=== PATIENT | female | born 1970 ===

== ENCOUNTER 2019-12-06 08:29 | Outpatient (REF) | payer OTHER, SELFPAY ==
--- NOTE | 2019-12-06 08:32 | MM_ITS ---
EXAMINATION: MM SCREENING DIGITAL BREAST TOMOSYNTHESIS, BILATERAL CLINICAL INFORMATION: Screening. Asymptomatic. The lifetime risk of breast cancer based on the Tyrer-Cuzick Model is 14%. COMPARISON: Mammography: 08/11/2018, 07/21/2017, 03/12/2016, 03/08/2015 TECHNIQUE: Digital breast tomosynthesis is performed in both the craniocaudal and mediolateral oblique views along with computer-aided detection (CAD). Synthesized 2D images are generated from the tomosynthesis. FINDINGS: There are scattered areas of fibroglandular density (ACR BI-RADS breast composition Category b). The left breast is unremarkable. There is no interval mass or architectural abnormality or developing density. Neither breast shows abnormal calcifications. The axilla and skin contours are unremarkable. The right CC view has subtle asymmetric density mid outer quadrant on CC view mammography, likely incompletely compressed glandular tissue or summation artifact. There is no correlate on MLO projection. Patient will be recalled for additional imaging. MM/MM tomosynthesis screening BI IMPRESSION: 1. Right: Subtle asymmetric density mid outer quadrant on CC tomography, likely incompletely compressed glandular tissue or summation artifact. 2. Left: No mammographic evidence of malignancy. ASSESSMENT: BI-RADS 0: Incomplete - Need Additional Imaging Evaluation RECOMMENDATION: 1. Additional views of the right breast (3-D spot CC, 3-D CC x2). 2. Targeted ultrasound if warranted after review of the additional views. 3. Radiology department staff will contact the patient for additional imaging. This patient's information was entered into a reminder system with a target due date for their next mammogram.
== END 2019-12-06 08:30 | disposition home or self-care (01) ==
LOC: HO.MAMMO 08:29
PROVIDERS: PCP Internal Medicine; Visit Provider Internal Medicine
DX: Z12.31 Encounter for screening mammogram for malignant neoplasm of breast (principal)
CPT/HCPCS: 77063; 77067

== ENCOUNTER 2019-12-16 14:10 | Outpatient (REF) | payer OTHER, SELFPAY ==
--- NOTE | 2019-12-16 | MM_ITS ---
EXAMINATION: MM DIAGNOSTIC DIGITAL BREAST TOMOSYNTHESIS, RIGHT US BREAST TARGETED, RIGHT CLINICAL INFORMATION: Right breast density laterally. COMPARISON: Mammography: 12/06/2019 and studies dating back to 04/12/2012. TECHNIQUE: Digital breast tomosynthesis is performed in spot compression craniocaudal as well as rolled medial and lateral craniocaudal views. Synthesized 2D images are generated from the tomosynthesis. Targeted right breast ultrasound. FINDINGS: There are scattered areas of fibroglandular density (ACR BI-RADS breast composition Category b). No persistent right breast mass is identified. Targeted right breast ultrasound in the outer quadrant did not demonstrate any abnormal cystic or solid mass. No region of abnormal distal sound shadowing appreciated. MM/MM tomosynthesis screening BI IMPRESSION: No persistent right breast abnormality seen. ASSESSMENT: BI-RADS 1: Negative RECOMMENDATION: Routine annual mammography screening. This patient's information was entered into a reminder system with a target due date for their next mammogram.
== END 2019-12-16 14:11 | disposition home or self-care (01) ==
LOC: HO.MAMMO 14:10
PROVIDERS: PCP Internal Medicine; Visit Provider Internal Medicine
DX: R92.2 Inconclusive mammogram (principal)
CPT/HCPCS: 76642; 77063; 77067

== ENCOUNTER → 2019-12-27 13:42 | Outpatient (BNVA) | payer OTHER, SELFPAY | PROVIDERS: Visit Provider Advanced Practice Midwife | DX: Z76.89 Persons encountering health services in other specified circumstances (principal) ==

== ENCOUNTER 2020-01-03 08:46 | Outpatient (REF) | payer OTHER, SELFPAY ==
[2020-01-03 10:04] LABS: MANUAL DIFF FLAG NO
[2020-01-03 10:06] LABS: Basophils Absolute Auto 0.1 X10*3/uL (0.0-0.2); Basophils Percent Auto 0.9 % (0-2); Eosinophils Absolute Auto 0.4 X10*3/uL (0.0-0.4); Eosinophils Percent Auto 6.8 % (0-4); Hemoglobin 14.2 g/dl (12.0-16.0); Imm Gran Abs Auto 0.01 X10*3/uL (0.00-0.03); Imm Gran Pct Auto 0.2 % (0.0-0.4); Lymphocytes Absolute Auto 2.3 X10*3/uL (1.2-4.9); Lymphocytes Percent Auto 40.1 % (20-40); Mean Corpuscular HGB Conc 32.3 g/dl (31.0-35.0); Mean Corpuscular Hemoglobin 29.8 pg (27.0-33.0); Mean Corpuscular Volume 92.2 fL (80-98); Mean Platelet Volume 12.7 fL (9.4-12.3); Monocytes Absolute Auto 0.4 X10*3/uL (0.1-1.2); Monocytes Percent Auto 6.3 % (2-11); Neutrophils Absolute Auto 2.6 X10*3/uL (2.0-8.3); Neutrophils Percent Auto 45.7 % (45-73); Platelet Count 244 X10*3/uL (160-400); Red Blood Count 4.77 X10*6/uL (4.20-5.50); Red Cell Distribution Width 13.2 % (11.0-16.0); White Blood Count 5.7 X10*3/uL (4.8-10.8)
[2020-01-03 10:26] LABS: Alanine Aminotransferase 19 U/L (0-31); Albumin Level 4.3 g/dL (3.5-5.0); Alkaline Phosphatase 50 U/L (39-117); Anion Gap 13 (12-20); Aspartate Amino Transferase 16 U/L (5-31); Bilirubin Total 0.5 mg/dL (0.0-1.0); Blood Urea Nitrogen 16 mg/dL (9-16); Calcium 9.3 mg/dL (8.4-10.2); Carbon Dioxide 27 mmol/L (22-29); Chloride 102 mmol/L (96-108); Cholesterol 228 mg/dL; Estimated Glomerular Filt Rate 59; Glucose Fasting 125 mg/dL (60-99); HDL Cholesterol 41 mg/dL; LDL Cholesterol Calculated 152 mg/dl; Potassium 4.5 mmol/l (3.3-5.1); Sodium 137 mmol/L (135-145); Total Protein 7.8 g/dL (6.5-8.0); Triglycerides 178 mg/dL
[2020-01-03 10:48] LABS: TSH reflex Free T4 0.67 mIU/mL (0.32-4.0); Vitamin D 25-OH Total 17.1 ng/mL (>30)
[2020-01-03 10:53] LABS: Vitamin B12 357 pg/mL (200-900)
[2020-01-04 19:27] LABS: Follicle Stimulating Hormone 96.8 mIU/mL
== END 2020-01-03 08:47 | disposition home or self-care (01) ==
LOC: HO.LAB 08:46
PROVIDERS: Absent Provider Advanced Practice Midwife; PCP Internal Medicine; Visit Provider Internal Medicine
DX: E78.2 Mixed hyperlipidemia (principal); R73.02 Impaired glucose tolerance (oral); R53.82 Chronic fatigue, unspecified
CPT/HCPCS: 36415; 80053; 80061; 82306; 82607; 82746; 83001; 84443; 85025

== ENCOUNTER 2020-01-09 14:04 | Outpatient (REF) | payer OTHER, SELFPAY ==
--- NOTE | 2020-01-09 14:08 | US_ITS ---
EXAMINATION: US PELVIS ULTRASOUND CLINICAL INFORMATION: N91.2 - Amenorrhea, unspecified. Prior history fibroids. Prior history myomectomy uterus. Age 49. COMPARISON: Ultrasound pelvis 10/22/2017, 11/03/2016. TECHNIQUE: Ultrasound of the pelvis is performed using both transabdominal and transvaginal transducers along with Doppler. Transvaginal imaging is performed due to inadequate visualization transabdominally. FINDINGS: Uterus: The uterus is anteverted and measures 10.4 x 4.2 x 4.7 cm. There are patient study limitations. The transvaginal images of the uterine fundus and body are limited, perhaps related to bowel gas. The endometrial lining is not measured at time of imaging. There is sagittal long axis imaged with transabdominal imaging suggesting double wall endometrial thickness partially visible of 12 mm. There is questionable posterior intramural fundal body fibroid on transverse transabdominal imaging measuring 1.3 cm, not noted at time of real-time imaging or visible on sagittal transabdominal images. With transvaginal imaging, there is a lower right anterior uterine body fibroid measuring 1.9 x 1.5 x 1.9 cm, prior measurement 2.2 x 1.8 x 2.1 cm. There is nabothian cyst in the cervix under 1 cm. Adnexa: Both ovaries are visualized. There is normal color flow to the adnexa. There is no ovarian torsion. There is no pelvic ascites or fluid collection. Right ovary measures 2.1 x 1.6 x 2.0 cm. Volume 3.5 mL. Left ovary measures 2.3 x 1.6 x 1.9 cm. Volume 3.7 mL. US/US pelvic complete IMPRESSION: 1. Uterus: Patient study limitations. Endometrial lining not well visualized, likely 1.2 cm on transabdominal image. Lower uterine segment fibroid stable to borderline decreased since 2018, 1.9 cm (prior measurement 2.2 cm). Question posterior intramural uterine fundal fibroid 1.3 cm. 2. Adnexa: Ovaries normal in size. No adnexal mass or pelvic ascites.
== END 2020-01-09 14:05 | disposition home or self-care (01) ==
LOC: HO.US 14:04
PROVIDERS: Visit Provider Advanced Practice Midwife
DX: N91.2 Amenorrhea, unspecified (principal); N95.1 Menopausal and female climacteric states
CPT/HCPCS: 76830; 76856

== ENCOUNTER → 2020-02-13 10:16 | Outpatient (BNVA) | payer OTHER, SELFPAY | PROVIDERS: PCP Internal Medicine; Referring Provider Internal Medicine; Visit Provider Obstetrics & Gynecology | DX: N91.2 Amenorrhea, unspecified (principal) | CPT/HCPCS: 99212 ==

== ENCOUNTER 2020-04-16 09:02 | Outpatient (REF) | payer OTHER, SELFPAY ==
[2020-04-16 10:07] LABS: Alanine Aminotransferase 30 U/L (0-31); Albumin Level 4.3 g/dL (3.5-5.0); Alkaline Phosphatase 48 U/L (39-117); Anion Gap 13 (12-20); Aspartate Amino Transferase 22 U/L (5-31); Bilirubin Total 0.4 mg/dL (0.0-1.0); Blood Urea Nitrogen 15 mg/dL (9-16); Calcium 9.1 mg/dL (8.4-10.2); Carbon Dioxide 26 mmol/L (22-29); Chloride 105 mmol/L (96-108); Cholesterol 234 mg/dL; Estimated Glomerular Filt Rate 58; Glucose Fasting 152 mg/dL (60-99); HDL Cholesterol 42 mg/dL; LDL Cholesterol Calculated 159 mg/dl; Potassium 4.6 mmol/L (3.3-5.1); Sodium 139 mmol/L (135-145); Total Protein 7.6 g/dL (6.5-8.0); Triglycerides 169 mg/dL
[2020-04-20 14:46] LABS: Vitamin D 25-OH, D2 31 ng/mL; Vitamin D 25-OH, D3 13 ng/mL; Vitamin D 25-OH, Total 44 ng/mL (30-100)
== END 2020-04-16 09:03 | disposition home or self-care (01) ==
LOC: HO.LAB 09:02
PROVIDERS: PCP Internal Medicine; Visit Provider Internal Medicine
DX: R73.02 Impaired glucose tolerance (oral) (principal); E55.9 Vitamin D deficiency, unspecified
CPT/HCPCS: 36415; 80053; 80061; 82306

== ENCOUNTER 2020-08-24 09:47 | Outpatient (REF) | payer OTHER, SELFPAY ==
[2020-08-24 11:18] LABS: Alanine Aminotransferase 30 U/L (0-31); Albumin Level 4.3 g/dL (3.5-5.0); Alkaline Phosphatase 58 U/L (39-117); Anion Gap 19 (12-20); Aspartate Amino Transferase 30 U/L (5-31); Bilirubin Total 0.6 mg/dL (0.0-1.0); Blood Urea Nitrogen 16 mg/dL (9-16); Calcium 9.5 mg/dL (8.4-10.2); Carbon Dioxide 19 mmol/L (22-29); Chloride 103 mmol/L (96-108); Cholesterol 253 mg/dL; Estimated Glomerular Filt Rate 55; Glucose Fasting 174 mg/dL (60-99); HDL Cholesterol 44 mg/dL; LDL Cholesterol Calculated 171 mg/dl; Potassium 5.1 mmol/L (3.3-5.1); Sodium 136 mmol/L (135-145); Total Protein 8.1 g/dL (6.5-8.0); Triglycerides 190 mg/dL
[2020-08-28 14:06] LABS: Vitamin D 25-OH, D2 27 ng/mL; Vitamin D 25-OH, D3 14 ng/mL; Vitamin D 25-OH, Total 41 ng/mL (30-100)
== END 2020-08-24 09:48 | disposition home or self-care (01) ==
LOC: HO.LAB 09:47
PROVIDERS: PCP Internal Medicine; Visit Provider Internal Medicine
DX: E78.5 Hyperlipidemia, unspecified (principal); R73.02 Impaired glucose tolerance (oral); E55.9 Vitamin D deficiency, unspecified
CPT/HCPCS: 36415; 80053; 80061; 82306

== ENCOUNTER 2020-10-03 07:51 | Outpatient (REF) | payer MEDICAID, SELFPAY ==
[2020-10-03 09:14] LABS: COVID-19 Test Negative (Negative)
== END 2020-10-03 07:52 | disposition home or self-care (01) ==
LOC: HO.LAB 07:51
PROVIDERS: PCP Internal Medicine; Visit Provider Internal Medicine
DX: Z20.822 Contact with and (suspected) exposure to COVID-19 (principal)
CPT/HCPCS: 36415; 87635; C9803

== ENCOUNTER 2020-12-22 10:28 | Outpatient (REF) | payer OTHER, SELFPAY ==
--- NOTE | ~2020-12-22 | MM_ITS ---
EXAMINATION: MM SCREENING DIGITAL BREAST TOMOSYNTHESIS, BILATERAL CLINICAL INFORMATION: Screening. Asymptomatic. The lifetime risk of breast cancer based on the Tyrer-Cuzick Model is 9%. COMPARISON: Mammography: 12/16/2019, 12/06/2019, 08/11/2018, 07/21/2017 TECHNIQUE: Digital breast tomosynthesis is performed in both the craniocaudal and mediolateral oblique views along with computer-aided detection (CAD). Synthesized 2D images are generated from the tomosynthesis. FINDINGS: There are scattered areas of fibroglandular density (ACR BI-RADS breast composition Category b). There are no significant masses, abnormal calcifications, or other abnormalities. No developing density or architectural abnormality. No significant changes. MM/MM tomosynthesis screening BI IMPRESSION: No mammographic evidence of malignancy. ASSESSMENT: BI-RADS 1: Negative RECOMMENDATION: Routine annual mammography screening. This patient's information was entered into a reminder system with a target due date for their next mammogram.
== END 2020-12-22 10:29 | disposition home or self-care (01) ==
LOC: HO.MAMMO 10:28
PROVIDERS: PCP Internal Medicine; Visit Provider Internal Medicine
DX: Z12.31 Encounter for screening mammogram for malignant neoplasm of breast (principal)
CPT/HCPCS: 77063; 77067

== ENCOUNTER → 2020-12-31 13:35 | Outpatient (BNVA) | payer OTHER, SELFPAY | PROVIDERS: Visit Provider Advanced Practice Midwife ==

== ENCOUNTER 2021-07-15 13:38 | Outpatient (REF) | payer OTHER, SELFPAY ==
[2021-07-15 15:31] LABS: Alanine Aminotransferase 25 U/L (0-31); Albumin Level 4.2 g/dL (3.5-5.0); Alkaline Phosphatase 60 U/L (39-117); Anion Gap 14 (12-20); Aspartate Amino Transferase 17 U/L (5-31); Bilirubin Total 0.4 mg/dL (0.0-1.0); Blood Urea Nitrogen 14 mg/dL (9-16); Calcium 9.7 mg/dL (8.4-10.2); Carbon Dioxide 27 mmol/L (22-29); Chloride 99 mmol/L (96-108); Estimated Glomerular Filt Rate 51; Glucose Random 299 mg/dL (60-115); Potassium 4.8 mmol/L (3.3-5.1); Sodium 135 mmol/L (135-145); Total Protein 7.6 g/dL (6.5-8.0)
== END 2021-07-15 13:39 | disposition home or self-care (01) ==
LOC: HO.LAB 13:38
PROVIDERS: Visit Provider Nurse Practitioner
DX: Z01.818 Encounter for other preprocedural examination (principal)
CPT/HCPCS: 36415; 80053; 99202; 99212

== ENCOUNTER 2021-08-22 09:22 | Outpatient (REF) | payer OTHER, SELFPAY ==
[2021-08-22 09:46] LABS: MANUAL DIFF FLAG NO
[2021-08-22 10:30] LABS: Basophils Absolute Auto 0.1 X10*3/uL (0.0-0.2); Basophils Percent Auto 0.8 % (0-2); Eosinophils Absolute Auto 0.3 X10*3/uL (0.0-0.4); Hematocrit 43.5 % (37.0-47.0); Hemoglobin 14.1 g/dl (12.0-16.0); Imm Gran Abs Auto 0.02 X10*3/uL (0.00-0.03); Imm Gran Pct Auto 0.3 % (0.0-0.4); Lymphocytes Absolute Auto 2.2 X10*3/uL (1.2-4.9); Lymphocytes Percent Auto 32.9 % (20-40); Mean Corpuscular HGB Conc 32.4 g/dl (31.0-35.0); Mean Corpuscular Hemoglobin 29.4 pg (27.0-33.0); Mean Corpuscular Volume 90.8 fL (80.0-98.0); Mean Platelet Volume 12.6 fL (9.4-12.3); Monocytes Absolute Auto 0.4 X10*3/uL (0.1-1.2); Monocytes Percent Auto 6.2 % (2-11); Neutrophils Absolute Auto 3.7 x10*3/uL (2.0-8.3); Neutrophils Percent Auto 55.8 % (45-73); Platelet Count 253 X10*3/uL (160-400); Red Blood Count 4.79 X10*6/uL (4.20-5.50); Red Cell Distribution Width 12.3 % (11.0-16.0); White Blood Count 6.6 X10*3/uL (4.8-10.8)
[2021-08-22 11:10] LABS: Alanine Aminotransferase 28 U/L (0-31); Albumin Level 4.4 g/dL (3.5-5.0); Alkaline Phosphatase 72 U/L (39-117); Anion Gap 15 (12-20); Aspartate Amino Transferase 22 U/L (5-31); Bilirubin Total 0.6 mg/dL (0.0-1.0); Blood Urea Nitrogen 11 mg/dL (9-16); Calcium 9.5 mg/dL (8.4-10.2); Carbon Dioxide 26 mmol/L (22-29); Chloride 99 mmol/L (96-108); Cholesterol 247 mg/dL; Estimated Glomerular Filt Rate 53; Glucose Fasting 275 mg/dL (60-99); HDL Cholesterol 38 mg/dL; LDL Cholesterol Calculated 171 mg/dl; Lipase 35 U/L (8-78); Sodium 135 mmol/L (135-145); Total Protein 7.8 g/dL (6.5-8.0); Triglycerides 190 mg/dL
[2021-08-28 13:22] LABS: Vitamin D 25-OH, D2 7 ng/mL; Vitamin D 25-OH, D3 15 ng/mL; Vitamin D 25-OH, Total 22 ng/mL (30-100)
== END 2021-08-22 09:23 | disposition home or self-care (01) ==
LOC: HO.LAB 09:22
PROVIDERS: PCP Internal Medicine; Visit Provider Internal Medicine
DX: R10.9 Unspecified abdominal pain (principal); R73.02 Impaired glucose tolerance (oral); G57.30 Lesion of lateral popliteal nerve, unspecified lower limb; E78.5 Hyperlipidemia, unspecified; E55.9 Vitamin D deficiency, unspecified
CPT/HCPCS: 36415; 80053; 80061; 82306; 83690; 85025

== ENCOUNTER 2021-08-28 11:21 | Outpatient (REF) | payer OTHER, SELFPAY ==
--- NOTE | ~2021-08-28 | XR_ITS ---
EXAMINATION: XR KNEE, LEFT CLINICAL INFORMATION: Left knee pain COMPARISON: None TECHNIQUE: Three views of the left knee. FINDINGS: Minimal patellofemoral compartment osteoarthritis with small marginal osteophytes. No significant joint space narrowing. No joint effusion. No acute abnormality. XR/XR knee LT 2V IMPRESSION: Minimal patellofemoral compartment osteoarthritis.
== END 2021-08-28 11:22 | disposition home or self-care (01) ==
LOC: HO.XRAY 11:21
PROVIDERS: PCP Internal Medicine; Visit Provider Internal Medicine
DX: M25.562 Pain in left knee (principal); E11.9 Type 2 diabetes mellitus without complications
CPT/HCPCS: 73560

== ENCOUNTER → 2021-09-24 10:21 | Outpatient (BNVA) | payer OTHER, SELFPAY | PROVIDERS: PCP Internal Medicine; Visit Provider Nurse Practitioner Family | DX: G57.30 Lesion of lateral popliteal nerve, unspecified lower limb (principal); R20.2 Paresthesia of skin; Z79.899 Other long term (current) drug therapy | CPT/HCPCS: 99202 ==

== ENCOUNTER 2021-12-05 09:00 | Outpatient (RCR) | payer OTHER, SELFPAY ==
[2021-10-21 09:51] VITALS: BP 133/75; PULSE 77; O2SAT 96
--- NOTE | 2021-10-21 11:22 | MHC.PT.EP ---
[facility] [place] Office [place] Office [place] Office [address] Javier Puckett [address] [phone] F: [phone] F: [phone] F: [phone] F: [phone] Physical Therapy Plan of Care Date of Evaluation: Date of Surgery: Diagnosis: LESION OF LATERAL POPLITEAL NERVE, PERONEAL NEUROPATHY Assessment: 51 YO FEMALE REF TO PT FOR LEFT PERONEAL NEUROPATHY- SHE HAS A H/O (+) RESULTS W PRIOR PT, SHE HAS SINCE BEEN NON-COMPLIANT W HEP. Pt RESIDES W [facility] IN A TOWNHOUSE, SHE IS UNEMPLOYED AND CURRENTLY IS NOT USING AND ASST DEVICES OR SUPPORTS. OBJECTIVELY, Pt HAS DECR LUMBOPELVIC AND DISTAL LEFT LE STRENGTH (DF/ EVERTORS), TIGHTNESS IN PLANTAR FASCIA, DECR AROM ANKLE EVERSION AND DF, AND FLUCTUATING PAIN AND RADICULAR SXS IN Lt CALF AND PLANTAR SURFACE- HER HIP FLEXIB IS DECENT. FUNCTIONALLY, Pt HAS DECR TOLERANCE TO STAIR MGMT, INCR WALKING, PROLONGED STANDING, AND AFTER SITTING FOR A FEW MINUTES- SHE NOTES SXS ARE WORSE AT NIGHT. Pt DENIES BOWEL/ BLADDER SIGNS AND SXS. Pt WOULD BENEFIT FROM PT AT THIS TIME TO ADDRESS HER PERONEAL NEUROPATHY, ? LB ORIGIN , ADDRESSING THE ABOVE FINDINGS, DEV /REINTRO HEP AND PAIN /SX MGMT. Frequency and Duration: The patient will be seen 2 x WK x 5 WKS Short Term Goals: *Pt'S LEFT DISTAL LE PAIN AND RADIC SXS DECR TO 2-04/18 *Pt DEMON INCR AROM ANKLE EVERSION, DF *Pt INDEP POSTURAL SELF-CORRECTION IN MULTI POSES/ADLs Jail Goals: *Pt DEMON WFL GAIT LEVEL AND STAIR MGMT W/O SXS IN LEFT DISTAL LE * Pt'S FUNCT MOB IMPROVED , IMPROVED LEFI (AT EVAL ) *Pt INCR LEs AND LUMBOPELVIC STRENGTH/ STABILIZATION Treatment Plan: Modalities to reduce pain, spasms and effusion. Manual therapy to restore motion and function. Therapeutic exercise to improve strength and flexibility. Neuromuscular re-education for posture and balance. Therapeutic activities to return to functional activities of daily living. Electronically signed by: Orin Delatorre PT Please sign and return to therapist. Thank you for your referral.
--- NOTE | 2021-12-05 10:42 | MHC.PT.DC ---
[facility] [place] [facility] [place] Office [place] Office [address] Javier Puckett [address] [phone] F: [phone] F: [phone] F: [phone] F: [phone] Physical Therapy Discharge Report Diagnosis: LEFT LESION OF LATERAL POPLITEAL NERVE, PERONEAL NEUROPATHY Date of Surgery: Date of Evaluation: 10/21/21 Date of Discharge: 12/05/21 Treatments to Date: 12 Cancellations to Date: 1 No Shows to Date: Discharge Status: Achieved Goals Improved Function Independent with HEP Discharge Summary: Pt HAS MADE SIGNIF GAINS IN PT - SHE PRESENTED TODAY WITH 0/10 PAIN- SHE IS MOTIVATED AND COMPLIANT W HER HEP. Pt DEMON WFL AROM AND FLEXIB- HER LEFI SCORE IMPROVED FROM 31/80 AT EVAL TO 70/80 TODAY AT D/C. Pt HAS RESUMED HER REGULAR ADLs AND IS D/C THIS DATE W HEP. Electronically signed by: Orin Delatorre,PT Please sign and return to therapist. Thank you for your referral.
== END 2021-12-05 10:43 | disposition home or self-care (01) ==
LOC: HO.PT 09:00
PROVIDERS: PCP Internal Medicine; Visit Provider Nurse Practitioner Family
DX: G57.30 Lesion of lateral popliteal nerve, unspecified lower limb (principal); R20.2 Paresthesia of skin
CPT/HCPCS: 97110; 97162

== ENCOUNTER 2021-12-11 15:12 | Outpatient (REF) | payer OTHER, SELFPAY ==
--- NOTE | 2021-12-11 09:45 | EMG_ITS ---
Please see scanned EMG / Nerve Conduction Report. MTDD
== END 2021-12-11 15:13 | disposition home or self-care (01) ==
LOC: HO.NEURO 15:12
PROVIDERS: PCP Internal Medicine; Visit Provider Nurse Practitioner Family
DX: G57.30 Lesion of lateral popliteal nerve, unspecified lower limb (principal); R20.2 Paresthesia of skin
CPT/HCPCS: 95885; 95912

== ENCOUNTER 2022-01-21 10:24 | Outpatient (REF) | payer OTHER, SELFPAY ==
--- NOTE | ~2022-01-21 | MM_ITS ---
EXAMINATION: MM SCREENING DIGITAL BREAST TOMOSYNTHESIS, BILATERAL CLINICAL INFORMATION: Screening. Asymptomatic. The lifetime risk of breast cancer based on the Tyrer-Cuzick Model is 13.5%. COMPARISON: Mammography: December 22, 2020 and studies dating back to March 08, 2015 TECHNIQUE: Digital breast tomosynthesis is performed in both the craniocaudal and mediolateral oblique views along with computer-aided detection (CAD). Synthesized 2D images are generated from the tomosynthesis. FINDINGS: The breasts are heterogeneously dense, which may obscure small masses (ACR BI-RADS breast composition Category c). There are no significant masses, abnormal calcifications, or other abnormalities. MM/MM tomosynthesis screening BI IMPRESSION: No significant changes from prior exam. ASSESSMENT: BI-RADS 1: Negative RECOMMENDATION: Routine annual mammography screening. This patient's information was entered into a reminder system with a target due date for their next mammogram.
== END 2022-01-21 10:25 | disposition home or self-care (01) ==
LOC: HO.MAMMO 10:24
PROVIDERS: Visit Provider Internal Medicine
DX: Z12.31 Encounter for screening mammogram for malignant neoplasm of breast (principal)
CPT/HCPCS: 77063; 77067

== ENCOUNTER → 2022-01-28 10:12 | Outpatient (BNVA) | payer OTHER, SELFPAY | PROVIDERS: PCP Internal Medicine; Visit Provider Nurse Practitioner Family | DX: R20.2 Paresthesia of skin (principal); G57.30 Lesion of lateral popliteal nerve, unspecified lower limb; M54.50 Low back pain, unspecified | CPT/HCPCS: 99212 ==

== ENCOUNTER 2022-01-29 08:34 | Outpatient (REF) | payer OTHER, SELFPAY ==
[2022-01-29 09:38] LABS: Creatinine Urine 181.54 mg/dL; Microalbum/Creatinine Ratio Ur 5.5 ug/mg cr
[2022-01-29 09:51] LABS: Alanine Aminotransferase 20 U/L (0-31); Albumin Level 4.4 g/dL (3.5-5.0); Alkaline Phosphatase 56 U/L (39-117); Anion Gap 13 (12-20); Aspartate Amino Transferase 16 U/L (5-31); Bilirubin Total 0.6 mg/dL (0.0-1.0); Blood Urea Nitrogen 14 mg/dL (9-16); Calcium 9.4 mg/dL (8.4-10.2); Carbon Dioxide 26 mmol/L (22-29); Chloride 107 mmol/L (96-108); Cholesterol 133 mg/dL; Estimated Glomerular Filt Rate > 60; Glucose Fasting 102 mg/dL (60-99); HDL Cholesterol 37 mg/dL; LDL Cholesterol Calculated 75 mg/dl; Potassium 4.5 mmol/L (3.3-5.1); Sodium 141 mmol/L (135-145); Total Protein 7.4 g/dL (6.5-8.0); Triglycerides 107 mg/dL; Vitamin D 25-OH Total 19.7 ng/mL (>30)
== END 2022-01-29 08:35 | disposition home or self-care (01) ==
LOC: HO.LAB 08:34
PROVIDERS: PCP Internal Medicine; Visit Provider Internal Medicine
DX: E11.9 Type 2 diabetes mellitus without complications (principal); E55.9 Vitamin D deficiency, unspecified; E78.5 Hyperlipidemia, unspecified
CPT/HCPCS: 36415; 80053; 80061; 82043; 82306

== ENCOUNTER 2022-02-12 09:34 | Outpatient (REF) | payer OTHER, SELFPAY | END 2022-02-12 09:35 | disposition home or self-care (01) | LOC: HO.LNP 09:34 | PROVIDERS: PCP Internal Medicine; Visit Provider Advanced Practice Midwife | DX: Z01.419 Encounter for gynecological examination (general) (routine) without abnormal findings (principal) | CPT/HCPCS: 88142 ==

== ENCOUNTER 2022-04-21 07:20 | Day surgery (SDC) | payer OTHER, SELFPAY ==
[2022-04-16 11:04] VITALS: BMI 29.2
--- NOTE | 2022-04-18 12:00 | HO.ANESPROP2 ---
Documented by User: Justyna Curtis NP 04/18/22 12:01 HPI - Anesthesia Eval Consult details Narrative: 52yo F for Colonoscopy PMFSH Active Problems Active Problems: All Active Problems (Updated 04/16/22 @ 10:54 by Joan Grissom RN) Well woman exam with routine gynecological exam (Acute) Perimenopause (Acute) Bartholin cyst (Acute) Amenorrhea (Acute) Colon cancer screening (Acute) Eczema (Acute) Diabetes mellitus (Acute) Hyperlipidemia LDL goal <70 (Acute) Left knee pain (Acute) Paresthesias (Acute) Low back pain (Acute) Diabetes 1.5, managed as type 2 (Acute) Multiple allergies (Acute) Physical exam (Acute) Peroneal neuropathy (Acute) HTN (hypertension) (Acute) Hypovitaminosis D (Acute) Past Medical History Medical History Diabetes Dyslipidemia History of gestational diabetes HTN (hypertension) Hypovitaminosis D Impaired glucose tolerance Pancreatitis Peroneal neuropathy Physical exam Seasonal allergies Uterine fibroid Family History Family History Mother HTN (hypertension) Asthma Arthritis Paternal Aunt HTN (hypertension) Diabetes mellitus Breast cancer Maternal Grandfather Diabetes mellitus Prostate cancer Stomach cancer Paternal Grandfather Diabetes mellitus HTN (hypertension) Father HTN (hypertension) Surgical History Surgical History History of cholecystectomy History of myomectomy Hx of section Hx of tubal ligation Social History Social History Housing: House Alcohol intake: never Patient Tobacco Use Status: Never used Tobacco e-Cigarette/Vaping Use: Never Used Second Hand Smoke Exposure: No Use of substances other than those prescribed or required for medical reasons: No Are you DNR?: No Advance Directives: No Advance Directives Information Provided: Yes service: No Current occupational status: unemployed Gender identity: Female Cognitive needs: No Hearing needs: No Vision needs: No Meds Allergies Allergy/AdvReac Type Severity Reaction Status Date / Time Seasonal Allergies Allergy Mild runny Verified 04/21/22 07:33 nose/itchy eyes Home Medications Medication Instructions Recorded Confirmed Last Taken Type fluticasone propionate 50 1 spray intranasal DAILY 12/27/19 04/16/22 Unknown History mcg/actuation nasal spray,suspension epinephrine 0.3 mg/0.3 mL 0.3 mg IM DIRECTED anaphylaxis 06/28/20 04/16/22 Unknown History injection, auto-injector ketotifen fumarate 0.025 % (0.035 drp ophthalmic (eye) 06/28/20 02/12/22 Unknown History %) eye drops triamcinolone acetonide 0.1 % 1 appl topical BID 06/28/20 04/16/22 Unknown History topical ointment cromolyn 4 % eye drops 1 drp ophthalmic (eye) QID 07/15/21 04/16/22 Unknown History gabapentin 100 mg capsule 100 mg PO BEDTIME 01/28/22 04/16/22 Unknown History cetirizine 10 mg tablet 1 tab DAILY 04/16/22 04/16/22 Unknown History Exam Exam Date and Time: April 18, 2022 1200 Height,Weight and Vital Signs: Height 5 ft 2 in Weight 72.575 kg Pertinent Lab Results Pertinent Lab Results: Laboratory Tests 08/22/21 01/29/22 09:44 08:43 WBC 6.6 Hgb 14.1 Hct 43.5 Plt Count 253 Sodium 141 Potassium 4.5 Chloride 107 Carbon Dioxide 26 BUN 14 Creatinine 0.85 Assessment and Plan Assessment Anesthesia Assessment: Chart Reviewed Documented by User: Kavitha Partida MD 04/21/22 08:00 [facility] Past Medical History Medical History Diabetes Dyslipidemia History of gestational diabetes HTN (hypertension) Hypovitaminosis D Impaired glucose tolerance Pancreatitis Peroneal neuropathy Physical exam Seasonal allergies Uterine fibroid Family History Family History Mother HTN (hypertension) Asthma Arthritis Paternal Aunt HTN (hypertension) Diabetes mellitus Breast cancer Maternal Grandfather Diabetes mellitus Prostate cancer Stomach cancer Paternal Grandfather Diabetes mellitus HTN (hypertension) Father HTN (hypertension) Family history of problems with anesthesia: No Surgical History Surgical History History of cholecystectomy History of myomectomy Hx of section Hx of tubal ligation History of Problems with Anesthesia: No Social History Social History Housing: House Alcohol intake: never Patient Tobacco Use Status: Never used Tobacco e-Cigarette/Vaping Use: Never Used Second Hand Smoke Exposure: No Use of substances other than those prescribed or required for medical reasons: No Are you DNR?: No Advance Directives: No Advance Directives Information Provided: Yes service: No Current occupational status: unemployed Gender identity: Female Cognitive needs: No Hearing needs: No Vision needs: No Meds Allergies Allergy/AdvReac Type Severity Reaction Status Date / Time Seasonal Allergies Allergy Mild runny Verified 04/21/22 07:33 nose/itchy eyes Home Medications Medication Instructions Recorded Confirmed Last Taken Type fluticasone propionate 50 1 spray intranasal DAILY 12/27/19 04/16/22 Unknown History mcg/actuation nasal spray,suspension epinephrine 0.3 mg/0.3 mL 0.3 mg IM DIRECTED anaphylaxis 06/28/20 04/16/22 Unknown History injection, auto-injector ketotifen fumarate 0.025 % (0.035 drp ophthalmic (eye) 06/28/20 02/12/22 Unknown History %) eye drops triamcinolone acetonide 0.1 % 1 appl topical BID 06/28/20 04/16/22 Unknown History topical ointment cromolyn 4 % eye drops 1 drp ophthalmic (eye) QID 07/15/21 04/16/22 Unknown History gabapentin 100 mg capsule 100 mg PO BEDTIME 01/28/22 04/16/22 Unknown History cetirizine 10 mg tablet 1 tab DAILY 04/16/22 04/16/22 Unknown History Exam Airway Mallampati Class: II TM Dist: >3cm Neck ROM: Full Heart: rrr Lungs: cta Assessment and Plan Assessment Anesthesia Assessment: Anesthesia Plan Discussed Final Anesthetic Review Family History of Problems with Anesthesia: No History of Problems with Anesthesia: No NPO: Yes ASA Class: III Final Preanesthetic Review: No Changes in Pt Med Stat, Meds/Allgs Chart Reviewed and Consent Obtained/Reviewed Patient Risk: Intermediate Procedure Risk: Intermediate Anesthetic Plan Anesthetic Plan: MAC: Disposition: Standard PACU
[2022-04-21 07:31] VITALS: BMI 27.4
--- NOTE | 2022-04-21 07:34 | MHC.SHP ---
Pre-Procedural Eval Section A Date of Service: 04/21/22 The patient is an INPATIENT: No The History & Physical has been completed within 30 days and I have reviewed it.: No Section B Chief Complaint: screening Details of Present Illness: colon cancer screening Relevant Family History (Specify if Yes): No Relevant Social History: None Present Medications: see Short Stay Collaborative assessment Medical History: Significant History (High cholesterol Hypertension Peroneal neuropathy Impaired glucose tolerance Uterine fibroids Allergic rhinitis) History of Previous Operations: Relevant previous surgery/procedure and date(s) (Myomectomy section Tubal ligation Cholecystectomy) Allergies: Allergies Allergy/AdvReac Type Severity Reaction Status Date / Time Seasonal Allergies Allergy Mild runny Verified 04/21/22 07:33 nose/itchy eyes Review of Systems Sugical H&P ROS: Negative: Constitution, Cardiovascular, Respiratory and Gastrointestinal Exam Surgical H&P Exam: Normal: Heart, Normal: Lungs, Normal: Extremities and Normal: Abdomen Plan Diagnosis/Plan: Unchanged I have reviewed the history and physical and performed a pertinent physical examination on my patient. No changes have occurred unless specified. Time Spent With Patient Time: Total time managing care of this patient today ____ minutes.
[2022-04-21 07:55] LABS: Glucose, Whole Blood 83 mg/dL (60-115)
[2022-04-21 08:00] VITALS: BP 123/83; PULSE 91; RESP 15; TEMP 36.4; O2SAT 98
[2022-04-21] MEDS: Lactated Ringers 1,000 ML 100 ML IVCONT (08:03)
--- NOTE | 2022-04-21 08:30 | P.BOP_ITS ---
Brief Operative Note Date of Service: 04/21/22 Pre-op diagnosis: Colon cancer screening Post-op diagnosis: other (Diverticulosis) Procedure: COLONOSCOPY TILL CECUM Surgeon: Shasta Fine MD Anesthesia: MAC Was an Director Sanitation Bureau used for this Procedure?: Yes Director Sanitation Bureau: Turner Gutierrez Estimated blood loss (mL): 0 Pathology: none sent Condition: stable Disposition: PACU
--- NOTE | 2022-04-21 08:31 | W.PM.OPN ---
Operative Note Operative Note Date of Service: 04/21/22 Narrative: COLONOSCOPY TILL CECUM Indication:? Colon cancer screening Endoscopist:? Shasta Fine MD Anesthesia Provider:?Dr Maldonado Anesthesia type:?MAC Consent: Indications for the procedure and potential complications of bleeding, perforation, reaction to medications and missed diagnosis were discussed with the patient and informed consent was obtained. Instrument: Olympus PCF H 190 L variable stiffness pediatric colonoscope Monitoring: Vital signs and clinical assessment, intermittent blood pressure monitoring, continuous EKG monitoring, Pulse oximetry and Carbon Dioxide monitoring were done throughout the procedure. Please see anesthesia flowsheet. Colon withdrawl time was 11 minutes. Procedure: The patient was placed in the left lateral decubitis position and pre-procedure medications were administered. After a digital rectal examination of the ano-rectum, the video colonoscope was inserted into the rectum and advanced through the colon to the cecum. The colonoscope was slowly withdrawn in a retrograde panoramic fashion and the colon mucosa was carefully examined including a retroflexed view of the rectum. Findings and interventions are described below. Procedure Difficulty: Without difficulty Findings: Terminal Ileum: Not evaluated Cecum: Normal Ascending Colon: Normal Transverse Colon: Normal Descending Colon: Moderate diverticulosis Sigmoid Colon: Moderate diverticulosis Rectum: Normal Ano-rectum: Small internal hemorrhoids Colon preparation: Good Impression and Post Procedure Diagnosis: Colonoscopy Findings: No polyps were detected Moderate diverticulosis seen in the left colon Small hemorrhoids on retroflexed exam. Plan: Patient has an appointment on 05/06/22 in the GI Clinic with Marce Tony NP. Repeat Colonoscopy in 10 years. Above findings were reviewed with the patient and diverticulosis handouts was given in the discharge area
[2022-04-21 08:56] VITALS: BP 156/62; PULSE 91; RESP 16; TEMP 36.4; O2SAT 95
[2022-04-21 09:11] VITALS: BP 110/83; PULSE 88; RESP 17; TEMP 36.6; O2SAT 97
[2022-04-21 09:26] VITALS: BP 120/79; PULSE 74; RESP 18; TEMP 36.4; O2SAT 100
== END 2022-04-21 10:13 | disposition home or self-care (01) ==
PROVIDERS: PCP Internal Medicine; Visit Provider Internal Medicine Gastroenterology
PROC: 0DJD8ZZ Inspection of Lower Intestinal Tract, Via Natural or Artificial Opening Endoscopic (ICD-10-PCS; CPT 45378; principal; 2022-04-21 08:30)
DX: Z12.11 Encounter for screening for malignant neoplasm of colon (principal); K57.30 Diverticulosis of large intestine without perforation or abscess without bleeding; K64.8 Other hemorrhoids; Z87.19 Personal history of other diseases of the digestive system; I10 Essential (primary) hypertension; E78.00 Pure hypercholesterolemia, unspecified; J30.9 Allergic rhinitis, unspecified; E55.9 Vitamin D deficiency, unspecified; E11.9 Type 2 diabetes mellitus without complications; J30.2 Other seasonal allergic rhinitis; Z79.51 Long term (current) use of inhaled steroids; Z79.84 Long term (current) use of oral hypoglycemic drugs; Z79.899 Other long term (current) drug therapy; Z90.49 Acquired absence of other specified parts of digestive tract
CPT/HCPCS: 45378; 82947

== ENCOUNTER 2022-04-30 08:37 | Outpatient (REF) | payer OTHER, SELFPAY ==
--- NOTE | ~2022-04-30 | XR_ITS ---
EXAMINATION: XR SHOULDER, LEFT CLINICAL INFORMATION: Left shoulder pain. COMPARISON: None available. TECHNIQUE: AP external rotation, Grashey, scapular Y, and axillary views of the left shoulder. FINDINGS: The humeral head is well positioned over the intact glenoid. Glenohumeral joint space is normal. No arthritic deformity, fracture or subluxation. Acromioclavicular joint alignment is normal. Small inferior osteophyte and clavicular subchondral cystic change at the mildly degenerated acromioclavicular joint.. The subacromial space is normal. Scapula is normal. No calcium deposition within rotator cuff tendons. The visualized portion of the left lung is normal. XR/XR shoulder LT min 2V IMPRESSION: * Mild osteoarthritis of the left acromioclavicular joint. * Otherwise, unremarkable radiographs of the left shoulder.
== END 2022-04-30 08:38 | disposition home or self-care (01) ==
LOC: HO.XRAY 08:37
PROVIDERS: PCP Internal Medicine; Visit Provider Internal Medicine
DX: M25.512 Pain in left shoulder (principal)
CPT/HCPCS: 73030

== ENCOUNTER → 2022-05-06 08:41 | Outpatient (BNVA) | payer OTHER, SELFPAY | PROVIDERS: PCP Internal Medicine; Visit Provider Nurse Practitioner | DX: Z98.890 Other specified postprocedural states (principal) | CPT/HCPCS: 99212 ==

== ENCOUNTER → 2022-07-29 10:08 | Outpatient (BNVA) | payer OTHER, SELFPAY | PROVIDERS: PCP Internal Medicine; Visit Provider Nurse Practitioner Family | DX: R20.2 Paresthesia of skin (principal) | CPT/HCPCS: 99212 ==

== ENCOUNTER 2022-08-29 08:06 | Outpatient (REF) | payer OTHER, SELFPAY ==
[2022-08-29 08:53] LABS: Estimated Average Glucose 117 mg/dL; Hemoglobin A1c % 5.7 %
[2022-08-29 09:29] LABS: Alanine Aminotransferase 25 U/L (0-31); Albumin Level 4.4 g/dL (3.5-5.0); Alkaline Phosphatase 64 U/L (39-117); Anion Gap 12 (12-20); Aspartate Amino Transferase 17 U/L (5-31); Bilirubin Total 0.6 mg/dL (0.0-1.0); Blood Urea Nitrogen 15 mg/dL (9-16); Calcium 9.8 mg/dL (8.4-10.2); Carbon Dioxide 27 mmol/L (22-29); Chloride 102 mmol/L (96-108); Cholesterol 132 mg/dL; Estimated Glomerular Filt Rate > 60; Glucose Fasting 95 mg/dL (60-99); HDL Cholesterol 41 mg/dL; LDL Cholesterol Calculated 73 mg/dl; Sodium 137 mmol/L (135-145); Total Protein 7.8 g/dL (6.5-8.0); Triglycerides 92 mg/dL
[2022-08-29 09:46] LABS: Microalbum/Creatinine Ratio Ur 8.5 ug/mg cr
[2022-08-29 09:53] LABS: Vitamin D 25-OH Total 21.6 ng/mL (>30)
== END 2022-08-29 08:07 | disposition home or self-care (01) ==
LOC: HO.LAB 08:06
PROVIDERS: PCP Internal Medicine; Visit Provider Internal Medicine
DX: E11.40 Type 2 diabetes mellitus with diabetic neuropathy, unspecified (principal); E55.9 Vitamin D deficiency, unspecified; E78.5 Hyperlipidemia, unspecified
CPT/HCPCS: 36415; 80053; 80061; 82043; 82306; 83036

== ENCOUNTER 2022-09-04 07:52 | Outpatient (AMB) | payer OTHER, SELFPAY ==
[2022-09-04 07:56] VITALS: BP 110/80; BMI 28.0
--- NOTE | 2022-09-04 07:56 | A.OFFPC_ITS ---
Vital Signs 09/04/22 07:56 Height 5 ft 2 in Weight 153 lb BMI 28.0 BP 110/80 Blood Pressure Location Lt brachial Position Sitting Intake Visit Reasons: DM Intake Note: Patient here for a follow up DM Sight Effects Specialist Required: No Accompanied by: Self / Same As Patient Allergies Seasonal Allergies Allergy (Mild, Verified 09/04/22 08:08) runny nose/itchy eyes Medication List - Last Reconciled 09/04/22 by Ariana De Anda MD atorvastatin 20 mg PO BEDTIME 90 days blood sugar diagnostic (FreeStyle Lite Strips) Use 1 test strip once a day blood-glucose meter (FreeStyle Lite Meter kit) As directed cetirizine 1 tab DAILY cromolyn 4% 1 drp ophthalmic (eye) QID epinephrine 0.3 mg IM DIRECTED fluticasone propionate 50 mcg/actuation 1 spray intranasal DAILY gabapentin 100 mg PO BEDTIME ketotifen fumarate 0.025%(0.035%) drps ophthalmic (eye) lancets (FreeStyle Lancets) Use 1 lancet once a day lisinopril 5 mg PO DAILY 90 days metformin 500 mg PO BID 90 days triamcinolone acetonide 0.1% 1 appl topical BID Tobacco use date assessed: 04/30/22 Dental Screening Dental Screen Date: 09/04/22 Did you have a dental visit in the last 12 months?: No Did you have a dental problem in the last 6 months where you did not have access to dental care?: No Was dental information given to patient?: Patient has dentist HPI HPI Comments History of Present Illness Details This is a 52-year-old female with hypertension, diabetes mellitus type 2 and hyperlipidemia that comes today for follow-up on recent labs. Blood pressure stable. A1c within goal. LDL very close to goal. Vitamin-D is low and vitamin-D supplements will be sent to the pharmacy. She also complains of left shoulder pain and x-ray showed mild degenerative disc disease which means osteoarthritis. Has full active range of motion but will be referred to physical therapy. No chest pain or shortness of breath. COUNT INCLUDES [facility] Medical History Colon cancer screening Diabetes Dyslipidemia History of gestational diabetes HTN (hypertension) Hypovitaminosis D Impaired glucose tolerance Pancreatitis Peroneal neuropathy Physical exam Seasonal allergies Uterine fibroid Surgical History History of cholecystectomy History of myomectomy Hx of section Hx of tubal ligation Family History Mother HTN (hypertension) Asthma Arthritis Paternal Aunt HTN (hypertension) Diabetes mellitus Breast cancer Maternal Grandfather Diabetes mellitus Prostate cancer Stomach cancer Paternal Grandfather Diabetes mellitus HTN (hypertension) Father HTN (hypertension) Substance use disorder Social History Housing: House Alcohol intake: never Patient Tobacco Use Status: Never used Tobacco e-Cigarette/Vaping Use: Never Used Second Hand Smoke Exposure: No service: No Current occupational status: unemployed Gender identity: Female Cognitive needs: No Hearing needs: No Vision needs: No Female Reproductive History Menstrual Age of Menarche: 15 Date of menopause: 01/19/20 Questionnaire Thrive Questionnaire Date Thrive assessed: 04/30/22 BRANDY-7 AMB Questionnaire BRANDY-7 Date BRANDY - 7 assessed: 04/30/22 Source: Developed by Drs. Turner Craft, Brandi Herman, Kushal Vergara and colleagues, with an educational sami from [employer]. Review of Systems Const All systems reviewed & are unremarkable except as noted in HPI and below Eyes Reports no additional complaints, Denies change in vision and Denies other visual disturbances Card Denies chest pain at rest, Denies chest pain with activity, Denies edema, Denies irregular heart rhythm, Denies claudication, Denies dyspnea, Denies dyspnea on exertion, Denies orthopnea, Denies paroxysmal nocturnal dyspnea and Denies slow heart rate Resp Denies cough, Denies dyspnea and Denies dyspnea on exertion GI Denies abdominal pain, Denies change in bowel habits, Denies excessive flatus, Denies nausea and Denies vomiting Denies urinary incontinence, Denies urinary hesitancy and Denies urinary urgency Musc Denies abnormal gait, Denies atrophy, Denies deformity and Denies limited range of motion Skin/Breast Denies bleeding lesions, Denies changing lesions and Denies rash Neuro Denies abnormal gait and Denies lack of coordination Physical exam (Primary Care) Vital Signs: Last Vital Signs BP 110/80 09/04/22 07:56 BMI result Body Mass Index 28.0 Tobacco/Smoking Status: Tobacco use Status Tobacco use date assessed 04/30/22 09/04/22 08:01 Patient Tobacco Use Status Never used Tobacco 09/04/22 08:01 e-Cigarette/Vaping Use Never Used 09/04/22 08:01 Thrive Assessment: Date of Thrive Assessment Date Thrive assessed 04/30/22 09/04/22 08:01 Eyes General: appearance normal, both eyes and all related structures Eyelids: Yes eyelids normal Conjunctivae: conjunctivae normal Neck Neck: Yes normal visual inspection and Yes supple Resp Effort & Inspection: normal respiratory effort Auscultation: clear to auscultation bilaterally Cardio Jugular venous distension: no JVD Rate: regular rate Rhythm: regular rhythm Heart sounds: S1 normal heart sound present and S2 normal heart sound present Extrem General: Yes full ROM Assessment and Plan Assessment & Plan (1) Diabetes mellitus: Code(s): E11.9 - Type 2 diabetes mellitus without complications Plan: Continue metformin. A1c goal is equal or less than 7%. (2) Hyperlipidemia LDL goal <70: Code(s): E78.5 - Hyperlipidemia, unspecified Plan: Continue statins. Continue low-cholesterol diet. LDL goal is less than 70. (3) Left shoulder pain: Code(s): M25.512 - Pain in left shoulder Plan: Referred to physical therapy. (4) HTN (hypertension): Code(s): I10 - Essential (primary) hypertension Qualifiers: Hypertension type: essential hypertension Qualified Code(s): I10 - Essential (primary) hypertension Plan: Continue lisinopril. Blood pressure goal is equal or less than 130/80 (5) Hypovitaminosis D: Code(s): E55.9 - Vitamin D deficiency, unspecified Plan: Continue vitamin-D supplements Orders: Orders PT Evaluation and Treatment Today M25.512 - Pain in left shoulder Vitamin D 25-OH Total 4 Months E55.9 - Vitamin D deficiency, unspecified Lipid Panel 4 Months E78.5 - Hyperlipidemia, unspecified Microalbumin, Random (w Creat) 4 Months E11.9 - Type 2 diabetes mellitus without complications Comprehensive [place]. Panel Fast 4 Months E11.9 - Type 2 diabetes mellitus without complications Medications: New cholecalciferol (vitamin D3) 25 mcg PO DAILY 90 caps 1RF 90 days E55.9 - Vitamin D deficiency, unspecified Coding Level of Care Code Est Pt Level 4 (96348) Diagnoses Diabetes mellitus E11.9 Hyperlipidemia LDL goal <70 E78.5 Left shoulder pain M25.512 HTN (hypertension) I10 Hypertension type: essential hypertension Hypovitaminosis D E55.9 Time Spent (min) 22
== END 2022-09-04 08:17 | disposition home or self-care (01) ==
PROVIDERS: PCP Internal Medicine; Visit Provider Internal Medicine
DX: E11.69 Type 2 diabetes mellitus with other specified complication (principal); E78.5 Hyperlipidemia, unspecified; I10 Essential (primary) hypertension; E55.9 Vitamin D deficiency, unspecified; M25.512 Pain in left shoulder
CPT/HCPCS: 99214

== ENCOUNTER 2023-01-12 08:30 | Outpatient (REF) | payer OTHER, SELFPAY ==
[2023-01-12 09:49] LABS: Creatinine Urine 170.58 mg/dL; Microalbum/Creatinine Ratio Ur 4.1 ug/mg cr (<30)
[2023-01-12 09:49] LABS: Alanine Aminotransferase 16 U/L (0-31); Albumin Level 4.3 g/dL (3.5-5.0); Alkaline Phosphatase 50 U/L (39-117); Anion Gap 12 (12-20); Aspartate Amino Transferase 17 U/L (5-31); Bilirubin Total 0.7 mg/dL (0.0-1.0); Blood Urea Nitrogen 16 mg/dL (9-16); Calcium 9.8 mg/dL (8.4-10.2); Carbon Dioxide 26 mmol/L (22-29); Chloride 106 mmol/L (96-108); Cholesterol 131 mg/dL (<200); Estimated Glomerular Filt Rate > 60; Glucose Fasting 102 mg/dL (60-99); HDL Cholesterol 41 mg/dL (>40); LDL Cholesterol Calculated 76 mg/dL (<100); Potassium 4.3 mmol/L (3.3-5.1); Sodium 140 mmol/L (135-145); Total Protein 7.8 g/dL (6.5-8.0); Triglycerides 73 mg/dL (<150)
[2023-01-12 10:05] LABS: Vitamin D 25-OH Total 38.4 ng/mL (>30)
== END 2023-01-12 08:31 | disposition home or self-care (01) ==
LOC: HO.LAB 08:30
PROVIDERS: PCP Internal Medicine; Visit Provider Internal Medicine
DX: E11.9 Type 2 diabetes mellitus without complications (principal); E55.9 Vitamin D deficiency, unspecified; E78.5 Hyperlipidemia, unspecified; R20.2 Paresthesia of skin; Z79.899 Other long term (current) drug therapy
CPT/HCPCS: 36415; 80053; 80061; 82043; 82306; 82570; 99212

== ENCOUNTER 2023-01-12 09:08 | Outpatient (AMB) | payer OTHER, SELFPAY ==
[2023-01-12 09:19] VITALS: BP 108/76; PULSE 80; O2SAT 98; BMI 27.8
--- NOTE | 2023-01-12 09:19 | A.OFFVIS_ITS ---
Intake Vital Signs 01/12/23 09:19 Height 5 ft 2 in Weight 152 lb 4 oz BMI 27.8 BP 108/76 Blood Pressure Location Lt brachial Position Sitting Pulse 80 Pulse Source Pulse Oximeter Pulse Oximetry (%) 98 Oxygen Delivery Method Room Air Intake Visit Reasons: 6m follow up/ Confirmed Intake Note: Pt presents to the office today for a 6 month follow up for Paresthesias. Pt states she is feeling well. Pt states since taking her medications so hasnt had any pinching feelings at nighttime. Allergies Seasonal Allergies Allergy (Mild, Verified 01/12/23 09:19) runny nose/itchy eyes Medication List - Last Reconciled 01/12/23 by OLIVA Rene atorvastatin 20 mg PO BEDTIME 90 days blood sugar diagnostic (FreeStyle Lite Strips) Use 1 test strip once a day blood-glucose meter (FreeStyle Lite Meter kit) As directed cetirizine 10 mg PO DAILY cholecalciferol (vitamin D3) 25 mcg PO DAILY 90 days cromolyn 4% 1 drp ophthalmic (eye) QID epinephrine 0.3 mg IM DIRECTED fluticasone propionate 50 mcg/actuation 1 spray intranasal DAILY gabapentin 100 - 300 mg (1 - 3 x 100 mg) PO BEDTIME 30 days ketotifen fumarate 0.025%(0.035%) drps ophthalmic (eye) lancets (FreeStyle Lancets) Use 1 lancet once a day lisinopril 5 mg PO DAILY 90 days metformin 500 mg PO BID 90 days triamcinolone acetonide 0.1% 1 appl topical BID HPI HPI Comments History of Present Illness Details 52-yr-old female presents for f/u visit. Pt denies any significant interval medical changes. Pt reports she occassionally will have a left calf region pinching x's a few seconds, more so in the evenings. She thinks maybe it is happeninga bit more as she is working now as a [employer]. Denies weakness, swelling, skin color changes, numbness. Diabetes is well managed. Gabapentin continues to help- usually takes 1 cap qhs, but if she feels the pinching she will take 2 caps. [facility] Medical History Diabetes History of gestational diabetes Pancreatitis Colon cancer screening Physical exam Peroneal neuropathy Dyslipidemia Impaired glucose tolerance Hypovitaminosis D Seasonal allergies Uterine fibroid HTN (hypertension) Surgical History History of cholecystectomy History of myomectomy Hx of tubal ligation Hx of section Family History Mother HTN (hypertension) Asthma Arthritis Paternal Aunt HTN (hypertension) Diabetes mellitus Breast cancer Maternal Grandfather Diabetes mellitus Prostate cancer Stomach cancer Paternal Grandfather Diabetes mellitus HTN (hypertension) Father HTN (hypertension) Substance use disorder Social History Housing: House Alcohol intake: never Patient Tobacco Use Status: Never used Tobacco e-Cigarette/Vaping Use: Never Used Second Hand Smoke Exposure: No service: No Current occupational status: unemployed Gender identity: Female Cognitive needs: No Hearing needs: No Vision needs: No Female Reproductive History Menstrual Age of Menarche: 15 Date of menopause: 01/19/20 Review of Systems Const All systems reviewed & are unremarkable except as noted in HPI and below Physical Exam Vital Signs: Last Vital Signs Pulse 80 01/12/23 09:19 BP 108/76 01/12/23 09:19 Pulse Ox 98 01/12/23 09:19 Oxygen Delivery Method Room Air 01/12/23 09:19 BMI result Body Mass Index 27.8 Const General: cooperative and no acute distress Orientation/consciousness: patient oriented x3 HEENT Head: Yes normocephalic Resp Effort & Inspection: normal respiratory effort and able to speak in complete sentences Neuro General: patient oriented x3, gait normal and CN's II-XI intact bilaterally Cognition (Neuro): normal cognition Motor exam (neuro): 5/5 motor strength present throughout Deep tendon reflexes (DTR's): Right patellar reflex intensity grade: 2+ and Left patellar reflex intensity grade: 2+ Psych Appearance: grossly normal Mental Status: mental status grossly normal Speech and movement: Normal speech and movement present Affect: normal affect Attitude: cooperative Thought process: Normal thought process present Thought content: Normal thought content present Insight: Good insight present (Psych) Judgement: Good judgement present (Psych) Assessment & Plan Assessment & Plan (1) Paresthesias: Code(s): R20.2 - Paresthesia of skin Plan LLE EMG/NCS- normal. Continue home PT exercises. Continue Gabapentin 100-200mg qhs, may take up to 300mg qhs prn. f/u in 6 months or sooner prn new/worsening s/s. Coding Level of Care Code Est Pt Level 3 (13384) Diagnoses Paresthesias R20.2
== END 2023-01-12 10:00 | disposition home or self-care (01) ==
PROVIDERS: PCP Internal Medicine; Visit Provider Nurse Practitioner Family
DX: R20.2 Paresthesia of skin (principal)
CPT/HCPCS: 99213

== ENCOUNTER 2023-01-15 10:25 | Outpatient (AMB) | payer OTHER, SELFPAY ==
--- NOTE | 2023-01-15 10:29 | A.OFFPC_ITS ---
Vital Signs 01/15/23 10:33 Height 5 ft 2 in Weight 152 lb BMI 27.8 BP 114/80 Blood Pressure Location Lt brachial Position Sitting Intake Visit Reasons: 4M follow up/DM Intake Note: Patient here for a 4 month follow up DM Him Tech Required: No Accompanied by: Self / Same As Patient Allergies Seasonal Allergies Allergy (Mild, Verified 01/15/23 10:39) runny nose/itchy eyes Medication List - Last Reconciled 01/15/23 by Ariana De Anda MD atorvastatin 20 mg PO BEDTIME 90 days blood sugar diagnostic (FreeStyle Lite Strips) Use 1 test strip once a day blood-glucose meter (FreeStyle Lite Meter kit) As directed cetirizine 10 mg PO DAILY cholecalciferol (vitamin D3) 25 mcg PO DAILY 90 days cromolyn 4% 1 drp ophthalmic (eye) QID epinephrine 0.3 mg IM DIRECTED fluticasone propionate 50 mcg/actuation 1 spray intranasal DAILY gabapentin 100 - 300 mg (1 - 3 x 100 mg) PO BEDTIME 30 days ketotifen fumarate 0.025%(0.035%) drps ophthalmic (eye) lancets (FreeStyle Lancets) Use 1 lancet once a day lisinopril 5 mg PO DAILY 90 days metformin 500 mg PO BID 90 days triamcinolone acetonide 0.1% 1 appl topical BID Tobacco use date assessed: 04/30/22 Dental Screening Dental Screen Date: 01/15/23 Did you have a dental visit in the last 12 months?: No Did you have a dental problem in the last 6 months where you did not have access to dental care?: No Was dental information given to patient?: Patient has dentist HPI HPI Comments History of Present Illness Details This is a 52-year-old female with diabetes mellitus type 2, h ypertension and hyperlipidemia that comes today complaining of left shoulder pain due to mild osteoarthritis and will be referred to Ortho. She also has left finger pain that started 6 months ago and has the left finger flex and swollen. A1c within goal. Blood pressure stable. LDL not on goal and I will increase atorvastatin. No chest pain or shortness of breath. [facility] Medical History Diabetes History of gestational diabetes Pancreatitis Colon cancer screening Physical exam Peroneal neuropathy Dyslipidemia Impaired glucose tolerance Hypovitaminosis D Seasonal allergies Uterine fibroid HTN (hypertension) Surgical History History of cholecystectomy History of myomectomy Hx of tubal ligation Hx of section Family History Mother HTN (hypertension) Asthma Arthritis Paternal Aunt HTN (hypertension) Diabetes mellitus Breast cancer Maternal Grandfather Diabetes mellitus Prostate cancer Stomach cancer Paternal Grandfather Diabetes mellitus HTN (hypertension) Father HTN (hypertension) Substance use disorder Social History Housing: House Alcohol intake: never Patient Tobacco Use Status: Never used Tobacco e-Cigarette/Vaping Use: Never Used Second Hand Smoke Exposure: No service: No Current occupational status: employed Current occupational exposures/hazards: No Gender identity: Female Cognitive needs: No Hearing needs: No Vision needs: No Female Reproductive History Menstrual Age of Menarche: 15 Date of menopause: 01/19/20 Questionnaire Thrive Questionnaire Date Thrive assessed: 04/30/22 BRANDY-7 AMB Questionnaire BRANDY-7 Date BRANDY - 7 assessed: 04/30/22 Source: Developed by Drs. Turner Craft, Brandi Herman, Kushal Vergara and colleagues, with an educational sami from [employer]. Review of Systems Const All systems reviewed & are unremarkable except as noted in HPI and below Eyes Reports no additional complaints, Denies change in vision and Denies other visual disturbances Card Denies chest pain at rest, Denies chest pain with activity, Denies edema, Denies irregular heart rhythm, Denies claudication, Denies dyspnea, Denies dyspnea on exertion, Denies orthopnea, Denies paroxysmal nocturnal dyspnea and Denies slow heart rate Resp Denies cough, Denies dyspnea and Denies dyspnea on exertion GI Denies abdominal pain, Denies change in bowel habits, Denies excessive flatus, Denies nausea and Denies vomiting Denies urinary incontinence, Denies urinary hesitancy and Denies urinary urgency Musc Denies abnormal gait, Denies atrophy, Denies deformity, Reports arthralgias, Reports joint swelling and Denies limited range of motion Skin/Breast Denies bleeding lesions, Denies changing lesions and Denies rash Neuro Denies abnormal gait, Denies behavioral changes and Denies lack of coordination Psych Denies behavioral changes Physical exam (Primary Care) Vital Signs: Last Vital Signs BP 114/80 01/15/23 10:33 BMI result Body Mass Index 27.8 Tobacco/Smoking Status: Tobacco use Status Tobacco use date assessed 04/30/22 01/15/23 10:31 Patient Tobacco Use Status Never used Tobacco 01/15/23 10:31 e-Cigarette/Vaping Use Never Used 01/15/23 10:31 Thrive Assessment: Date of Thrive Assessment Date Thrive assessed 04/30/22 01/15/23 10:31 Eyes General: appearance normal, both eyes and all related structures Eyelids: Yes eyelids normal Conjunctivae: conjunctivae normal Neck Neck: Yes normal visual inspection and Yes supple Resp Effort & Inspection: normal respiratory effort Auscultation: clear to auscultation bilaterally Cardio Jugular venous distension: no JVD Rate: regular rate Rhythm: regular rhythm Heart sounds: S1 normal heart sound present and S2 normal heart sound present Extrem Other: Unable to move left 5th finger and his permanently flex and swollen Results AMB Hemoglobin A1c AMB Hemoglobin A1c 6.1 % Last Edit by ZEKE Goetz on 01/15/23 10:4 0 Results Reviewed Results Reviewed: Laboratory Last Values Hgb A1c (Clinic) 6.1 % (4.0-6.0) H 01/15/23 10:29 Assessment and Plan Assessment & Plan (1) Diabetes mellitus: Code(s): E11.9 - Type 2 diabetes mellitus without complications Qualifiers: Diabetes mellitus type: type 2 Diabetes mellitus [facility] insulin use: without [facility] use Diabetes mellitus complication status: without complication Qualified Code(s): E11.9 - Type 2 diabetes mellitus without complications Plan: Continue metformin. A1c goal is equal or less than 7%. (2) Hyperlipidemia LDL goal <70: Code(s): E78.5 - Hyperlipidemia, unspecified Plan: Increase atorvastatin from 20 mg to 40 mg. LDL goal is less than 70. (3) HTN (hypertension): Code(s): I10 - Essential (primary) hypertension Qualifiers: Hypertension type: essential hypertension Qualified Code(s): I10 - Essential (primary) hypertension Plan: Continue lisinopril. Blood pressure goal is equal or less than 130/80. (4) Left shoulder pain: Code(s): M25.512 - Pain in left shoulder Plan: Referred to Ortho. Orders: Orders AMB Hemoglobin A1c Today E11.9 - Type 2 diabetes mellitus without complications Vitamin D 25-OH Total 3 Months E55.9 - Vitamin D deficiency, unspecified Comprehensive [place]. Panel Fast 3 Months E11.9 - Type 2 diabetes mellitus without complications XR finger LT min 2V Today M79.645 - Pain in left finger(s) Lipid Panel 3 Months E78.5 - Hyperlipidemia, unspecified Microalbumin, Random (w Creat) 3 Months E11.9 - Type 2 diabetes mellitus without complications Referrals Orthopedics Referral M25.512 - Pain in left shoulder, M79.645 - Pain in left finger(s) Coding Level of Care Code Est Pt Level 4 (03080) Diagnoses Type 2 diabetes mellitus without complication, without long-term current use of insulin E11.9 Diabetes mellitus type: type 2 Diabetes mellitus [facility] insulin use: without [facility] use Diabetes mellitus complication status: without complication Hyperlipidemia LDL goal <70 E78.5 Essential hypertension I10 Hypertension type: essential hypertension Left shoulder pain M25.512 Time Spent (min) 23
[2023-01-15 10:33] VITALS: BP 114/80; BMI 27.8
== END 2023-01-15 10:51 | disposition home or self-care (01) ==
PROVIDERS: PCP Internal Medicine; Visit Provider Internal Medicine
DX: E11.9 Type 2 diabetes mellitus without complications (principal); E78.5 Hyperlipidemia, unspecified; I10 Essential (primary) hypertension; M25.512 Pain in left shoulder
CPT/HCPCS: 83036; 99214

== ENCOUNTER 2023-01-15 10:54 | Outpatient (REF) | payer OTHER, SELFPAY ==
--- NOTE | ~2023-01-15 | XR_ITS ---
EXAMINATION: XR FINGER, LEFT FIFTH CLINICAL INFORMATION: Pain in left fifth digit. COMPARISON: None available. TECHNIQUE: 4 views of the left fifth digit. FINDINGS: Advanced degenerative changes with hypertrophic change and joint space narrowing in the distal interphalangeal joint of the fifth digit. There is adjacent soft tissue swelling. Moderate degenerative changes in the first carpometacarpal joint with joint space narrowing and hypertrophic change. XR/XR finger LT min 2V IMPRESSION: 1. Advanced degenerative changes with associated soft tissue swelling at the distal interphalangeal joint of the fifth digit. 2. Moderate degenerative changes in the first carpometacarpal joint. 3. Recommend follow-up imaging in 10-14 days if fracture is suspected.
== END 2023-01-15 10:55 | disposition home or self-care (01) ==
LOC: HO.XRAY 10:54
PROVIDERS: PCP Internal Medicine; Visit Provider Internal Medicine
DX: M79.645 Pain in left finger(s) (principal)
CPT/HCPCS: 73140

== ENCOUNTER 2023-01-28 09:18 | Outpatient (REF) | payer OTHER, SELFPAY ==
--- NOTE | ~2023-01-28 | XR_ITS ---
EXAMINATION: XR FINGER, LEFT CLINICAL INFORMATION: Pain. COMPARISON: Radiographs dated 01/15/2023. TECHNIQUE: PA, lateral, and oblique views of the left small finger. FINDINGS: Bony alignment is normal. There is marked osteoarthritic change of the fifth distal interphalangeal joint, with significant joint space narrowing and peripheral osteophyte formation. There is slight joint flexion. No fracture or dislocation is seen. There is mild soft tissue swelling, without gas or foreign body is seen. A tiny sclerotic bone island is incidentally noted of the base of the fourth distal phalanx. XR/XR finger LT min 2V IMPRESSION: Marked osteoarthritic change is seen of the fifth distal interphalangeal joint. There is mild adjacent soft tissue swelling. No fracture or dislocation is seen.
== END 2023-01-28 09:19 | disposition home or self-care (01) ==
LOC: HO.MAMMO 09:18
PROVIDERS: PCP Internal Medicine; Visit Provider Internal Medicine
DX: Z12.31 Encounter for screening mammogram for malignant neoplasm of breast (principal); M79.645 Pain in left finger(s)
CPT/HCPCS: 73140; 77063; 77067

== ENCOUNTER → 2023-01-28 09:45 | Outpatient (BNV) | payer OTHER, SELFPAY | PROVIDERS: PCP Internal Medicine; Visit Provider Radiology Diagnostic Radiology | DX: Z12.31 Encounter for screening mammogram for malignant neoplasm of breast (principal) | CPT/HCPCS: 77063; 77067 ==

== ENCOUNTER 2023-02-04 09:43 | Outpatient (AMB) | payer OTHER, SELFPAY ==
[2023-02-04 09:44] VITALS: BMI 27.8
--- NOTE | 2023-02-04 09:44 | MHC.OFFVIS ---
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 She describes her pain as sharp and severe in nature. Most of the pain is along the lateral aspect of her left shoulder. Her pain has gotten worse over the last year in spite of continued non operative treatments. She has done physical therapy exercises which aggravated her symptoms. She has also tried Tylenol and anti-inflammatory medicines which gave her minimal relief. Allergies Seasonal Allergies Allergy (Mild, Verified 02/04/23 10:10) runny nose/itchy eyes Medication List - Last Reconciled 02/04/23 by Jean Marie Vallejo MD atorvastatin 40 mg PO BEDTIME 90 days blood sugar diagnostic (FreeStyle Lite Strips) Use 1 test strip once a day blood-glucose meter ([facility]) As directed cetirizine 10 mg PO DAILY cholecalciferol (vitamin D3) 25 mcg PO DAILY 90 days cromolyn 4% 1 drp ophthalmic (eye) QID epinephrine 0.3 mg IM DIRECTED fluticasone propionate 50 mcg/actuation 1 spray intranasal DAILY gabapentin 100 - 300 mg (1 - 3 x 100 mg) PO BEDTIME 30 days ketotifen fumarate 0.025%(0.035%) drps ophthalmic (eye) lancets ([facility]) Use 1 lancet once a day lisinopril 5 mg PO DAILY 90 days metformin 500 mg PO BID 90 days triamcinolone acetonide 0.1% 1 appl topical BID [facility] Medical History Diabetes History of gestational diabetes Pancreatitis Colon cancer screening Physical exam Peroneal neuropathy Dyslipidemia Impaired glucose tolerance Hypovitaminosis D Seasonal allergies Uterine fibroid HTN (hypertension) Surgical History History of cholecystectomy History of myomectomy Hx of tubal ligation Hx of section Family History Mother HTN (hypertension) Asthma Arthritis Paternal Aunt HTN (hypertension) Diabetes mellitus Breast cancer Maternal Grandfather Diabetes mellitus Prostate cancer Stomach cancer Paternal Grandfather Diabetes mellitus HTN (hypertension) Father HTN (hypertension) Substance use disorder Social History Housing: House Alcohol intake: never Patient Tobacco Use Status: Never used Tobacco e-Cigarette/Vaping Use: Never Used Second Hand Smoke Exposure: No service: No Current occupational status: employed Current occupational exposures/hazards: No Gender identity: Female Cognitive needs: No Hearing needs: No Vision needs: No Female Reproductive History Menstrual Age of Menarche: 15 Date of menopause: 01/19/20 Physical Exam Vital Signs: BMI result Body Mass Index 27.8 Const Other: Well-nourished well-developed very friendly female awake alert and oriented x3 in no acute distress Neuro Other: Bilateral upper extremity examination shows good capillary refill, no skin lesions noted, normal sensation light touch Left shoulder examination shows decreased range of motion when compared to her right shoulder, 4+ out of 5 strength with supraspinatus testing, positive impingement signs, tenderness over her acromioclavicular joint, no instability Results Reviewed Results Reviewed: X-rays of the patient's left shoulder show severe acromioclavicular joint narrowing, a type 2 acromion, no acute bony abnormalities Assessment & Plan Assessment & Plan (1) Left shoulder pain: Code(s): M25.512 - Pain in left shoulder Plan Ms. Anglin presents with progressively worsening left shoulder pain and weakness most likely due to a full-thickness rotator cuff tear. Thus, I will send the patient for an MRI of her left shoulder for further evaluation. If she does have a full-thickness tear I will recommend surgical repair to optimize her future functional level. I will see her back once the MRI is completed to discuss the findings and treatment options. She will continue with her range of motion exercises in the meantime. Feel free to call me at any time should questions regarding her orthopedic management arise. I spent 22 minutes in reviewing the patient's records and imaging studies, seeing the patient and documenting in the medical record. Orders: Orders MR shoulder LT wo con Today M25.512 - Pain in left shoulder Medications: New celecoxib (Celebrex) 200 mg PO DAILY 30 caps 3RF Coding Level of Care Code New Pt Level 2 (55692) Diagnoses Left shoulder pain M25.512
== END 2023-02-04 10:23 | disposition home or self-care (01) ==
PROVIDERS: PCP Internal Medicine; Visit Provider Orthopaedic Surgery
DX: M25.512 Pain in left shoulder (principal)
CPT/HCPCS: 99202

== ENCOUNTER → 2023-02-04 09:43 | Outpatient (BNVA) | payer OTHER, SELFPAY | PROVIDERS: PCP Internal Medicine; Visit Provider Orthopaedic Surgery | DX: M25.512 Pain in left shoulder (principal) | CPT/HCPCS: 99202 ==

== ENCOUNTER 2023-03-05 17:50 | Outpatient (REF) | payer OTHER, SELFPAY ==
--- NOTE | ~2023-03-05 | MR_ITS ---
EXAMINATION: MR SHOULDER WITHOUT CONTRAST, LEFT CLINICAL INFORMATION: Left shoulder pain and swelling. COMPARISON: Left shoulder radiographs dated 04/30/2022. TECHNIQUE: MRI of the shoulder without contrast was performed on a high-field scanner. FINDINGS: ROTATOR CUFF: Mild supraspinatus, infraspinous, subscapularis tendinosis. No measurable rotator cuff tendon tear. No muscle atrophy or fatty infiltration. BICEPS: Intact. CORACOACROMIAL ARCH: The undersurface of the acromion is curved with tiny subacromial spurs. Mild to moderate acromioclavicular osteoarthritis. Trace fluid and edema within the subacromial subdeltoid bursa, consistent with mild bursitis. LABRUM/CAPSULE: No labral tear. Intact joint capsule. GLENOHUMERAL JOINT/MARROW: Unremarkable. MR/MR shoulder LT wo con IMPRESSION: 1. Mild supraspinatus, infraspinous, and subscapularis tendinosis without a measurable rotator cuff tendon tear. 2. Mild to moderate acromioclavicular osteoarthritis with tiny subacromial spurs. 3. Mild subacromial subdeltoid bursitis.
== END 2023-03-05 17:51 | disposition home or self-care (01) ==
LOC: HO.MRI 17:50
PROVIDERS: PCP Internal Medicine; Visit Provider Orthopaedic Surgery
DX: M25.512 Pain in left shoulder (principal)
CPT/HCPCS: 73221

== ENCOUNTER 2023-03-09 09:21 | Outpatient (AMB) | payer OTHER, SELFPAY ==
--- NOTE | 2023-03-09 09:22 | MHC.OFFVIS ---
Intake Vital Signs 03/09/23 09:23 Height 5 ft 2 in Weight 152 lb BMI 27.8 Intake Visit Reasons: OV - Left Shoulder MRI Review Intake Note: Jenelle is a 53 year old female who presents for and MRI review of her Left shoulder. The patient states that her shoulder pain has improved somewhat since her last visit. She denies any weakness. She has been taking Celebrex which gives her fairly good relief. She continues with her home stretching program. Allergies Seasonal Allergies Allergy (Mild, Verified 03/09/23 09:25) runny nose/itchy eyes Medication List - Last Reconciled 03/09/23 by Jean Marie Vallejo MD atorvastatin 40 mg PO BEDTIME 90 days blood sugar diagnostic (FreeStyle Lite Strips) Use 1 test strip once a day blood-glucose meter (FreeStyle Lite Meter kit) As directed celecoxib (Celebrex) 200 mg PO DAILY cetirizine 10 mg PO DAILY cholecalciferol (vitamin D3) 25 mcg PO DAILY 90 days cromolyn 4% 1 drp ophthalmic (eye) QID epinephrine 0.3 mg IM DIRECTED fluticasone propionate 50 mcg/actuation 1 spray intranasal DAILY gabapentin 100 - 300 mg (1 - 3 x 100 mg) PO BEDTIME 30 days ketotifen fumarate 0.025%(0.035%) drps ophthalmic (eye) lancets (FreeStyle Lancets) Use 1 lancet once a day lisinopril 5 mg PO DAILY 90 days metformin 500 mg PO BID 90 days triamcinolone acetonide 0.1% 1 appl topical BID [facility] Medical History Diabetes History of gestational diabetes Pancreatitis Colon cancer screening Physical exam Peroneal neuropathy Dyslipidemia Impaired glucose tolerance Hypovitaminosis D Seasonal allergies Uterine fibroid HTN (hypertension) Surgical History History of cholecystectomy History of myomectomy Hx of tubal ligation Hx of section Family History Mother HTN (hypertension) Asthma Arthritis Paternal Aunt HTN (hypertension) Diabetes mellitus Breast cancer Maternal Grandfather Diabetes mellitus Prostate cancer Stomach cancer Paternal Grandfather Diabetes mellitus HTN (hypertension) Father HTN (hypertension) Substance use disorder Social History (Reviewed 03/09/23 @ 09:26 by CYNDIE Mark Housing: House Alcohol intake: never Patient Tobacco Use Status: Never used Tobacco e-Cigarette/Vaping Use: Never Used Second Hand Smoke Exposure: No service: No Current occupational status: employed Current occupational exposures/hazards: No Gender identity: Female Cognitive needs: No Hearing needs: No Vision needs: No Female Reproductive History Menstrual Age of Menarche: 15 Date of menopause: 01/19/20 Physical Exam Vital Signs: BMI result Body Mass Index 27.8 Const Other: Well-nourished well-developed very friendly female awake alert and oriented x3 in no acute distress Extrem Other: Bilateral upper extremity examination shows good capillary refill, no skin lesions noted, normal sensation light touch Left shoulder examination shows almost full range of motion when compared to her right shoulder, 4+ out of 5 strength with supraspinatus testing, positive impingement signs, tenderness over her acromioclavicular joint, no instability Results Reviewed Results Reviewed: MRI of the patient's left shoulder show severe acromioclavicular joint narrowing, a type 2 acromion, no acute bony abnormalities Assessment & Plan Assessment & Plan (1) Left shoulder pain: Code(s): M25.512 - Pain in left shoulder Plan Ms. Anglin presents with left shoulder pain due to impingement syndrome and acromioclavicular joint arthritis. I had a lengthy discussion with the patient regarding the treatment options. At this point the patient's symptoms are tolerable to her. She will continue taking Celebrex as needed for her discomfort. She will also continue with her home stretching program to prevent stiffness. The do's and don'ts of lifting were discussed at length with the patient. The patient will follow up with me on an as-needed basis should her symptoms worsen in any way. Feel free to call me at any time should questions regarding her orthopedic management arise. I spent 22 minutes in reviewing the patient's records and imaging studies, seeing the patient and documenting in the medical record. Coding Level of Care Code Est Pt Level 2 (17478) Diagnoses Left shoulder pain M25.512
[2023-03-09 09:23] VITALS: BMI 27.8
== END 2023-03-09 09:56 | disposition home or self-care (01) ==
PROVIDERS: PCP Internal Medicine; Visit Provider Orthopaedic Surgery
DX: M75.42 Impingement syndrome of left shoulder (principal); M19.012 Primary osteoarthritis, left shoulder
CPT/HCPCS: 99213

== ENCOUNTER → 2023-03-09 09:21 | Outpatient (BNVA) | payer OTHER, SELFPAY | PROVIDERS: PCP Internal Medicine; Visit Provider Orthopaedic Surgery | DX: M25.512 Pain in left shoulder (principal) | CPT/HCPCS: 99212 ==

== ENCOUNTER 2023-04-05 00:29 | Emergency (ER) | payer OTHER, SELFPAY ==
[2023-04-05] VITALS (7 sets, daily range): BP systolic 115–147; BP diastolic 73–81; PULSE 72–93; RESP 12–18; TEMP 36.1–37; O2SAT 97–100; BMI 27.8
--- NOTE | ~2023-04-05 | CT_ITS ---
EXAMINATION: CT HEAD WITHOUT CONTRAST CT CERVICAL SPINE WITHOUT CONTRAST CLINICAL INFORMATION: Fall. Pain. COMPARISON: None available. TECHNIQUE: Contiguous axial imaging was performed through the head and cervical spine without intravenous administration of contrast. Sagittal and coronal reformatted images also obtained. This CT examination was performed using dose optimization techniques as appropriate, variously including the following: *Automated exposure control *Adjustment of mA and/or kV according to patient size (this includes techniques or standardized protocols for targeted exams where dose is matched to indication/reason for exam; i.e. extremities or head) *Use of iterative reconstruction technique DLP: 925 mGy-cm FINDINGS: The lateral, third and fourth ventricles are normally outlined. The cortical sulci and basal cisterns are normally outlined as well. There is no acute territorial defect, hemorrhage or midline shift. The extra-axial spaces are unremarkable. Calvarium: Intact. Maxillofacial sinuses and mastoids: Clear as visualized. Cervical spine: The alignment is within normal limits. There is minimal multilevel cervical disc degenerative change with minimal endplate change and mild osteophyte formation. There is also mild diffuse facet osteoarthritic hypertrophic change. There is no significant spinal canal or neuroforaminal narrowing. The bone mineralization is normal. No fracture is seen. The soft tissues are unremarkable. The visualized upper lung rooney are clear. CT/CT cervical spine wo IV con IMPRESSION: 1. No acute intracranial pathology. 2. There is minimal multilevel cervical spondylosis. No acute fracture or dislocation is seen.
--- NOTE | ~2023-04-05 | CT_ITS ---
EXAMINATION: CT ABDOMEN AND PELVIS WITH CONTRAST CLINICAL INFORMATION: Pain. COMPARISON: None available. TECHNIQUE: Multidetector volumetric images were obtained from the superior aspect of the liver through the pubic symphysis following administration 85 mL of Omnipaque 350 intravenous contrast. Sagittal and coronal reformatted images were obtained on the technologist's workstation. Oral contrast: No This CT examination was performed using dose optimization techniques as appropriate, variously including the following: *Automated exposure control *Adjustment of mA and/or kV according to patient size (this includes techniques or standardized protocols for targeted exams where dose is matched to indication/reason for exam; i.e. extremities or head) *Use of iterative reconstruction technique DLP: 550 mGy-cm FINDINGS: LUNG BASES: The visualized lung bases are unremarkable. LIVER, GALLBLADDER, AND BILIARY TREE: The liver is normal in size, shape, and attenuation. No focal hepatic lesion or biliary ductal dilatation is present. There has been a prior cholecystectomy. PANCREAS: Unremarkable. SPLEEN: Unremarkable. ADRENAL GLANDS: Unremarkable. KIDNEYS AND URETERS: The kidneys are normal in size, shape, and attenuation. No hydronephrosis, hydroureter, or calculi seen. No perinephric stranding. BLADDER: Unremarkable. GASTROINTESTINAL TRACT: The small and large bowel are unremarkable. The appendix is unremarkable. ABDOMINAL WALL: There is a small umbilical region hernia containing fat. LYMPH NODES: Normal. VASCULAR: Unremarkable. PELVIC VISCERA: Multiple small fibroids measuring up to 2.1 cm. OSSEOUS STRUCTURES: Unremarkable. CT/CT abdomen pelvis w IV con IMPRESSION: No significant abnormality. Fleischner guidelines were followed.
--- NOTE | ~2023-04-05 | CT_ITS ---
EXAMINATION: CT HEAD WITHOUT CONTRAST CT CERVICAL SPINE WITHOUT CONTRAST CLINICAL INFORMATION: Fall. Pain. COMPARISON: None available. TECHNIQUE: Contiguous axial imaging was performed through the head and cervical spine without intravenous administration of contrast. Sagittal and coronal reformatted images also obtained. This CT examination was performed using dose optimization techniques as appropriate, variously including the following: *Automated exposure control *Adjustment of mA and/or kV according to patient size (this includes techniques or standardized protocols for targeted exams where dose is matched to indication/reason for exam; i.e. extremities or head) *Use of iterative reconstruction technique DLP: 925 mGy-cm FINDINGS: The lateral, third and fourth ventricles are normally outlined. The cortical sulci and basal cisterns are normally outlined as well. There is no acute territorial defect, hemorrhage or midline shift. The extra-axial spaces are unremarkable. Calvarium: Intact. Maxillofacial sinuses and mastoids: Clear as visualized. Cervical spine: The alignment is within normal limits. There is minimal multilevel cervical disc degenerative change with minimal endplate change and mild osteophyte formation. There is also mild diffuse facet osteoarthritic hypertrophic change. There is no significant spinal canal or neuroforaminal narrowing. The bone mineralization is normal. No fracture is seen. The soft tissues are unremarkable. The visualized upper lung rooney are clear. CT/CT head/brain wo IV con IMPRESSION: 1. No acute intracranial pathology. 2. There is minimal multilevel cervical spondylosis. No acute fracture or dislocation is seen.
--- NOTE | 2023-04-05 00:44 | ECG_ITS ---
Test Reason : SYNCOPE Blood Pressure : / mmHG Vent. Rate : 071 BPM Atrial Rate : 071 BPM P-R Int : 180 ms QRS Dur : 090 ms QT Int : 398 ms P-R-T Axes : 036 -07 033 degrees QTc Int : 432 ms Normal sinus rhythm Normal ECG When compared with ECG of 19-APR-2014 18:36, QT has shortened Referred By: Estelita Larsen Electronically Signed By:DENNY LEES MD
[2023-04-05 00:51] LABS: Glucose, Whole Blood 122 mg/dL (60-115)
[2023-04-05 01:20] LABS: MANUAL DIFF FLAG NO
[2023-04-05 01:21] LABS: Basophils Absolute Auto 0.1 X10*3/uL (0.0-0.2); Basophils Percent Auto 0.5 % (0-2); Eosinophils Absolute Auto 0.3 X10*3/uL (0.0-0.4); Eosinophils Percent Auto 2.8 % (0-4); Hematocrit 40.8 % (37.0-47.0); Hemoglobin 13.3 g/dl (12.0-16.0); Imm Gran Abs Auto 0.02 X10*3/uL (0.00-0.03); Imm Gran Pct Auto 0.2 % (0.0-0.4); Lymphocytes Absolute Auto 3.7 X10*3/uL (1.2-4.9); Lymphocytes Percent Auto 36.6 % (20-40); Mean Corpuscular HGB Conc 32.6 g/dl (31.0-35.0); Mean Corpuscular Hemoglobin 29.5 pg (27.0-33.0); Mean Corpuscular Volume 90.5 fL (80.0-98.0); Mean Platelet Volume 11.6 fL (9.4-12.3); Monocytes Absolute Auto 0.5 X10*3/uL (0.1-1.2); Monocytes Percent Auto 5.2 % (2-11); Neutrophils Absolute Auto 5.5 x10*3/uL (2.0-8.3); Neutrophils Percent Auto 54.7 % (45-73); Platelet Count 246 X10*3/uL (160-400); Red Blood Count 4.51 X10*6/uL (4.20-5.50); Red Cell Distribution Width 13.2 % (11.0-16.0)
[2023-04-05 01:30] LABS: INTERNATIONAL NORM RATIO 0.8 (0.9-1.1); Prothrombin Time 9.9 SEC (11.1-13.3)
[2023-04-05 01:35] LABS: Alanine Aminotransferase 34 U/L (0-31); Albumin Level 4.1 g/dL (3.5-5.0); Alkaline Phosphatase 63 U/L (39-117); Anion Gap 13 (12-20); Aspartate Amino Transferase 23 U/L (5-31); Bilirubin Direct 0.2 mg/dL (0.0-0.5); Bilirubin Total 0.4 mg/dL (0.0-1.0); Blood Urea Nitrogen 21 mg/dL (9-16); Calcium 9.4 mg/dL (8.4-10.2); Carbon Dioxide 30 mmol/L (22-29); Chloride 102 mmol/L (96-108); Creatinine Clr Calc Pharmacy 66.5; Estimated Glomerular Filt Rate > 60; Glucose Random 129 mg/dL (60-115); Lipase 136 U/L (8-78); Magnesium 1.8 mg/dL (1.6-2.6); Potassium 3.9 mmol/L (3.3-5.1); Sodium 141 mmol/L (135-145); Total Protein 7.2 g/dL (6.5-8.0)
[2023-04-05 01:40] LABS: Troponin-I High Sensitivity < 2.7 ng/L (<3.5-17.0)
--- NOTE | 2023-04-05 01:51 | ED_ITS ---
HPI - Syncope General Chief Complaint: Syncope Stated Complaint: fall, w/ head strike, loss of consciousness Time Seen by Provider: 04/05/23 01:49 Source: patient and family Mode of arrival: ambulatory Limitations: no limitations History of Present Illness HPI narrative: 53-year-old female history of diabetes, hypertension, hyperlipidemia who presents emergency department for evaluation of abdominal pain, nausea, syncope. Patient states that this morning she woke up and she was not feeling well. She states she had abdominal pain and she points to her epigastric and mid abdominal area. She states that the pain was sharp pain and intermittent throughout the day. She states the pain felt similar to her pancreatitis pain that she had 7 years prior. She had nausea and loss of appetite. Patient states that she felt like she had to to have a bowel movement and went into the bathroom but was unable to move her bowels. She states she felt dizzy and try to get up to go to the bedroom to lie down. According to her daughter the patient then had a syncopal episode and fell striking her head. Patient does not remember falling. She does complain of pain in the back of her head where she has a small hematoma. She currently states that her abdominal pain is 7/10. She denied fever but did have chills. She denied sore throat, cough, chest pain, shortness of breath. She had nausea with no vomiting. She denied diarrhea. She denied frequency, urgency or dysuria. Related Data Home Medications Medication Instructions Recorded Confirmed fluticasone propionate 50 1 spray intranasal DAILY 12/27/19 03/09/23 mcg/actuation nasal spray,suspension epinephrine 0.3 mg/0.3 mL 0.3 mg IM DIRECTED anaphylaxis 06/28/20 03/09/23 injection, auto-injector ketotifen fumarate 0.025 % (0.035 drp ophthalmic (eye) 06/28/20 03/09/23 %) eye drops triamcinolone acetonide 0.1 % 1 appl topical BID 06/28/20 03/09/23 topical ointment cromolyn 4 % eye drops 1 drp ophthalmic (eye) QID 07/15/21 03/09/23 Previous Rx's Medication Instructions Recorded blood-glucose meter (FreeStyle #1 ea 08/28/21 Lite Meter kit) lisinopril 5 mg tablet 5 mg PO DAILY 90 days #90 tabs 11/14/22 gabapentin 100 mg capsule 100 - 300 mg (1 - 3 x 100 mg) PO 12/08/22 BEDTIME 30 days #270 caps blood sugar diagnostic (FreeStyle #100 ea 12/10/22 Lite Strips) lancets 28 gauge (FreeStyle #100 ea 12/10/22 Lancets) cetirizine 10 mg tablet 10 mg PO DAILY #90 tabs 12/29/22 atorvastatin 40 mg tablet 40 mg PO BEDTIME 90 days #90 tabs 01/20/23 metformin 500 mg tablet 500 mg PO BID 90 days #180 tabs 01/31/23 celecoxib 200 mg capsule (Celebrex) 200 mg PO DAILY #30 caps 02/04/23 cholecalciferol (vitamin D3) 25 25 mcg PO DAILY 90 days #90 caps 03/02/23 mcg (1,000 unit) capsule omeprazole 20 mg capsule,delayed 20 mg PO DAILY 30 days #30 caps 04/05/23 release ondansetron 4 mg disintegrating 4 mg PO Q6-8H PRN nausea and 04/05/23 tablet vomiting #14 tabs Allergies Allergy/AdvReac Type Severity Reaction Status Date / Time Seasonal Allergies Allergy Mild runny Verified 03/09/23 09:25 nose/itchy eyes Review of Systems 2 Review of Systems: Yes all other systems are reviewed and are negative [facility] Past Medical History Medical History Diabetes History of gestational diabetes Pancreatitis Colon cancer screening Physical exam Peroneal neuropathy Dyslipidemia Impaired glucose tolerance Hypovitaminosis D Seasonal allergies Uterine fibroid HTN (hypertension) Surgical History History of cholecystectomy History of myomectomy Hx of tubal ligation Hx of section Family History Family History Mother HTN (hypertension) Asthma Arthritis Paternal Aunt HTN (hypertension) Diabetes mellitus Breast cancer Maternal Grandfather Diabetes mellitus Prostate cancer Stomach cancer Paternal Grandfather Diabetes mellitus HTN (hypertension) Father HTN (hypertension) Substance use disorder Social History Social History Housing: House Alcohol intake: never Patient Tobacco Use Status: Never used Tobacco Smoked in Last 30 Days: No e-Cigarette/Vaping Use: Never Used Second Hand Smoke Exposure: No Use of substances other than those prescribed or required for medical reasons: No Advance Directives: No Advance Directives Information Provided: No Patient : No service: No Current occupational status: employed Current occupational exposures/hazards: No Gender identity: Female Cognitive needs: No Hearing needs: No Vision needs: No Physical Exam 2 Vital Signs: Vital Signs: Last Vital Signs Temp 97.0 F 04/05/23 00:32 Pulse 81 04/05/23 01:27 Resp 12 04/05/23 02:27 BP 126/80 04/05/23 01:27 Pulse Ox 97 04/05/23 02:19 O2 Del Method Room Air 04/05/23 02:19 BMI result Body Mass Index 27.8 Vital signs were no Exam: General: Awake, alert in no distress Head: Normocephalic, patient has tenderness palpation of the right occipital area, there is a small hematoma in this area with no abrasion. EENT: PERRL, Lids normal, sclera normal, conjunctiva normal, nose normal , ears normal, throat without erythema or exudates Neck: Supple, no adenopathy Lung: breath sounds symmetric, no wheezing, rales or rhonchi Chest: symmetric movement, nontender Heart: regular rate and rhythm, normal S1, S2 no murmurs or rubs Abdomen: soft, moderate epigastric and periumbilical tenderness, nondistended, normal bowel sounds Back: no vertebral tenderness, no CVAT Extremities: no deformities, moves all extremities symmetrically Neuro: Awake, alert, oriented, normal speech, cranial nerves intact, moves all extremities symmetrically Psych: Pleasant, cooperative Medications Administered Discontinued Medications Generic Name Dose Route Start Last Admin Trade Name Kendal PRN Reason Stop Dose Admin Acetaminophen 650 mg 04/05/23 01:40 04/05/23 02:27 Acetaminophen 325 Mg Tablet PO 04/05/23 01:41 650 mg ONCE ONE Administration Sodium Chloride 1,000 mls @ 999 mls/hr 04/05/23 01:45 04/05/23 03:35 Ns IV 04/05/23 02:45 Infused .Q1H1M ABDOULAYE Infusion Iohexol 85 ml 04/05/23 02:00 04/05/23 02:00 Iohexol 350 Mg/Ml 100 Ml Infus..Btl IV 04/05/23 02:01 85 ml ONCE ONE Administration Morphine Sulfate 4 mg 04/05/23 02:19 04/05/23 02:27 Morphine Sulfate 4 Mg/Ml Cartridge IVPUSH 04/05/23 02:20 4 mg ONCE STA Administration Protocol Ondansetron HCl 4 mg 04/05/23 02:19 04/05/23 02:27 Ondansetron Hcl 4 Mg/2 Ml Vial IVPUSH 04/05/23 02:20 4 mg ONCE ONE Administration Medical Decision Making Medical Decision Making MDM Narrative: 53-year-old female history of diabetes, hypertension, hyperlipidemia who presents emergency department for evaluation of abdominal pain which started this morning is similar to her pancreatitis pain in the past,, nausea, syncope episode which occurred after she attempted to move her bowels, became dizzy nauseated and fell while trying to get to her bedroom. Patient currently is complaining of abdominal pain, points to her epigastric and periumbilical area and the pain is 7/10. Patient also complains of pain in her head and has a small hematoma to the occipital area of her head secondary to her syncopal episodes/fall. Patient's vital signs were normal except for an elevated blood pressure 147/78. Abdominal exam did reveal epigastric and periumbilical tenderness. Differential diagnosis: ?Includes but is not limited to pancreatitis, gastritis, viral syndrome, skull fracture, intracranial bleed, cervical fracture, viral syndrome, anemia, electrolyte abnormalities Following evaluation was ordered: CBC, BMP, liver panel, magnesium, lipase, troponin, PT/INR, LDH, 12 EKG, CT scan of the head, cervical spine without contrast. CT abdomen pelvis with IV contrast Patient was initially treated with the following: Normal saline IV x1 L, acetaminophen 650 mg orally, morphine 4 mg IV and Zofran 4 mg IV Course: 05:29 My independent interpretation patient's laboratory evaluation as follows: CBC was normal. CMP revealed an elevated bicarb of 30, elevated BUN 21, elevated glucose 129, elevated ALT 34. Troponin was below detectable limits. Magnesium was normal. Twelve EKG was unremarkable. Patient's CT scan of the brain and cervical spine was unremarkable CT scan of the abdomen did not reveal any evidence for acute pancreatitis. Patient is feeling better after the above treatment, patient most likely has gastritis is the cause of her symptoms. The patient patient was started on omeprazole 20 mg once a day for 1 month and Zosyn 4 mg ODT every 6 hours as needed for nausea and vomiting. She was given printed and verbal instructions discharged home Admission/Observation Consideration of admission/observation: Escalation of care including admission/observation considered Lab Data MDM Lab Attestation statement: I reviewed the patient's lab results. 04/05/23 01:14 04/05/23 01:14 Labs: Lab Results 04/05/23 04/05/23 Range/Units 00:41 01:14 WBC 10.0 (4.8-10.8) X10*3/uL RBC 4.51 (4.20-5.50) X10*6/uL Hgb 13.3 (12.0-16.0) g/dl Hct 40.8 (37.0-47.0) % MCV 90.5 (80.0-98.0) fL MCH 29.5 (27.0-33.0) pg MCHC 32.6 (31.0-35.0) g/dl RDW 13.2 (11.0-16.0) % Plt Count 246 (160-400) X10*3/uL MPV 11.6 (9.4-12.3) fL Immature Gran % (Auto) 0.2 (0.0-0.4) % Neut % (Auto) 54.7 (45-73) % Lymph % (Auto) 36.6 (20-40) % [place] % (Auto) 5.2 (2-11) % Eos % (Auto) 2.8 (0-4) % Baso % (Auto) 0.5 (0-2) % Lymph # (Auto) 3.7 (1.2-4.9) X10*3/uL [place] # (Auto) 0.5 (0.1-1.2) X10*3/uL Eos # (Auto) 0.3 (0.0-0.4) X10*3/uL Baso # (Auto) 0.1 (0.0-0.2) X10*3/uL Abs Immat Gran (auto) 0.02 (0.00-0.03) X10*3/uL Absolute Neuts (auto) 5.5 (2.0-8.3) x10*3/uL Absolute Nucleated RBC 0.000 (0.0-0.012) X10*3/uL Nucleated RBC % (auto) 0.0 (0.0-0.2) /100WBC PT 9.9 L (11.1-13.3) SEC INR 0.8 L (0.9-1.1) Sodium 141 (135-145) mmol/L Potassium 3.9 (3.3-5.1) mmol/L Chloride 102 (96-108) mmol/L Carbon Dioxide 30 H (22-29) mmol/L Anion Gap 13 (12-20) BUN 21 H (9-16) mg/dL Creatinine 0.90 (0.5-1.4) mg/dL Estim Creat Clear Calc 66.5 Estimated GFR > 60 POC Glucose 122 H (60-115) mg/dL Random Glucose 129 H (60-115) mg/dL Calcium 9.4 (8.4-10.2) mg/dL Magnesium 1.8 (1.6-2.6) mg/dL Total Bilirubin 0.4 (0.0-1.0) mg/dL Direct Bilirubin 0.2 (0.0-0.5) mg/dL AST 23 (5-31) U/L ALT 34 H (0-31) U/L Alkaline Phosphatase 63 (39-117) U/L Lactate Dehydrogenase 151 (122-220) U/L Troponin I High Sens < 2.7 (<3.5-17.0) ng/L Total Protein 7.2 (6.5-8.0) g/dL Albumin 4.1 (3.5-5.0) g/dL Lipase 136 H (8-78) U/L Independent Interpretation I performed an independent interpretation of an: EKG Interpretation: My interpretation patient's 12 EKG done at 01:03 hours is as follows: Normal sinus rhythm rate of 71, normal [place] interval, QRS duration QTC interval, no ST segment elevation, no ST segment depression, flattened T-wave in lead 3, no PACs, no PVCs Radiology Impression Radiologist Impression: EXAMINATION: CT HEAD WITHOUT CONTRAST CT CERVICAL SPINE WITHOUT CONTRAST IMPRESSION: 1. No acute intracranial pathology. 2. There is minimal multilevel cervical spondylosis. No acute fracture or dislocation is seen. Dictated By: Turner Quispe CT abdomen pelvis w IV con IMPRESSION: No significant abnormality. Fleischner guidelines were followed. Dictated By: Turner Quispe Discharge Plan Discharge Clinical Impression: Abdominal pain Qualifiers: Abdominal location: epigastric Qualified Code(s): R10.13 - Epigastric pain Gastritis Qualifiers: Gastritis type: unspecified gastritis Chronicity: acute Gastritis bleeding: w ithout bleeding Qualified Code(s): K29.00 - Acute gastritis without bleeding Vomiting Qualifiers: Vomiting type: unspecified Nausea presence: with nausea Qualified Code(s): R 11.2 - Nausea with vomiting, unspecified Patient Disposition: Home, Self-Care Instructions: Gastritis (ED) Additional Instructions: Your blood work was unremarkable except for slight elevation in your lipase of 136. The CT scan of your head and neck did not reveal any broken bones or bleeding in the brain which is reassuring. The CT scan of your abdomen did not reveal any cause for your pain or inflammation around your pancreas. At this time I do not think that you have pancreatitis but you have inflammation of your stomach, gastritis that is causing your pain. Take Tylenol (acetaminophen) 500 mg pills, 2 pills every 6 hours as needed for pain or fever. Take Zofran ODT 4 mg pills, 1 pill dissolved in your mouth every 8 hours as needed for nausea and vomiting. Follow-up with your doctor in 2 days. Please return to the emergency department if your symptoms get worse or if you develop any symptoms that are concerning to you. Prescriptions: New omeprazole 20 mg capsule,delayed release(DR/EC) 20 mg PO DAILY 30 Days Qty: 30 0RF ondansetron 4 mg tablet,disintegrating 4 mg PO Q6-8H PRN (Reason: nausea and vomiting) Qty: 14 0RF No Action lisinopril 5 mg tablet 5 mg PO DAILY 90 Days Qty: 90 2RF gabapentin 100 mg capsule 100 - 300 mg PO BEDTIME 30 Days Qty: 270 1RF (DME) FreeStyle Lite Strips Strip See Rx Instructions .Route Qty: 100 2RF Rx Instructions: Use 1 test strip once a day (DME) lancets [FreeStyle Lancets] 28 gauge misc See Rx Instructions .Route Qty: 100 2RF Rx Instructions: Use 1 lancet once a day cetirizine 10 mg tablet 10 mg PO DAILY Qty: 90 0RF atorvastatin 40 mg tablet 40 mg PO BEDTIME 90 Days Qty: 90 1RF metformin 500 mg tablet 500 mg PO BID 90 Days Qty: 180 1RF cholecalciferol (vitamin D3) 25 mcg (1,000 unit) capsule 25 mcg PO DAILY 90 Days Qty: 90 1RF triamcinolone acetonide 0.1 % ointment 1 appl topical BID ketotifen fumarate 0.025 % (0.035 %) drops ophthalmic (eye) epinephrine 0.3 mg/0.3 mL auto-injector 0.3 mg IM DIRECTED (DME) blood-glucose meter [FreeStyle Lite Meter] Kit See Rx Instructions .Route Qty: 1 0RF Rx Instructions: As directed fluticasone propionate 50 mcg/actuation spray,suspension 1 spray intranasal DAILY cromolyn 4 % drops 1 drp ophthalmic (eye) QID celecoxib [Celebrex] 200 mg capsule 200 mg PO DAILY Qty: 30 3RF Print Language: [place]errat[place]
[2023-04-05 01:52] LABS: Lactate Dehydrogenase 151 U/L (122-220)
[2023-04-05] MEDS: iohexoL 350 MG/ML 100 ML INFUS..BTL 85 ML IV (02:00)
[2023-04-05] MEDS: ondansetron HCL 4 MG/2 ML VIAL IVPUSH (02:27)
[2023-04-05] MEDS: Acetaminophen 325 MG TABLET 650 MG PO (02:27)
[2023-04-05] MEDS: Morphine Sulfate 4 MG/ML CARTRIDGE IVPUSH (02:27)
[2023-04-05] MEDS: 0.9 % Sodium Chloride 1,000 ML 999 ML IV (02:32)
--- NOTE | 2023-04-05 04:39 | PC.NURSE ---
Patient presented to ED for evaluation following fall at home, + head strike on closet in hallway, +LOC x 5 minutes. Family assisted patient to get up, patient reports she can not recall falling, endorses dizziness and nausea throughout the day today, denies vomiting. Patient is alert and oriented x4, VSS. EKG completed, 20 G IV line placed to R AC. labs drawn and sent to lab for processing, Patient medicated per MAR, family at bedside, call dumont within patient's reach.
== END 2023-04-05 06:16 | disposition home or self-care (01) ==
PROVIDERS: Emergency Medicine; Emergency Provider Emergency Medicine Emergency Medical Services; PCP Internal Medicine
DX: K29.00 Acute gastritis without bleeding (principal); R11.2 Nausea with vomiting, unspecified; R55 Syncope and collapse; M54.2 Cervicalgia; R51.9 Headache, unspecified; R10.13 Epigastric pain; I10 Essential (primary) hypertension; Z79.899 Other long term (current) drug therapy
CPT/HCPCS: 36415; 70450; 72125; 74177; 80048; 80076; 82947; 83615; 83690; 83735; 84484; 85025; 85610; 93005; 96361; 96374; 96375; 99284; 99285; J2270; J2405; Q9967

== ENCOUNTER → 2023-04-05 00:44 | Outpatient (BNV) | payer OTHER, SELFPAY | PROVIDERS: Emergency Provider Emergency Medicine Emergency Medical Services; PCP Internal Medicine; Visit Provider Internal Medicine Cardiovascular Disease | DX: R55 Syncope and collapse (principal) | CPT/HCPCS: 93010 ==

== ENCOUNTER 2023-04-08 13:22 | Outpatient (AMB) | payer OTHER, SELFPAY ==
[2023-04-08 13:24] VITALS: BP 120/80; BMI 28.3
--- NOTE | 2023-04-08 13:24 | MHC.PC.OV ---
Vital Signs 04/08/23 13:24 Height 5 ft 2 in Weight 155 lb BMI 28.3 BP 120/80 Blood Pressure Location Lt brachial Position Sitting Intake Visit Reasons: ER 04/06/23 fainting Intake Note: [place] [facility] [place] 04/06/23 Fainting, c/o left side head, neck, shoulder pain Room Worker Required: No Accompanied by: Self / Same As Patient Allergies Seasonal Allergies Allergy (Mild, Verified 04/08/23 13:53) runny nose/itchy eyes Medication List - Last Reconciled 04/08/23 by Ariana De Anda MD atorvastatin 40 mg PO BEDTIME 90 days blood sugar diagnostic (FreeStyle Lite Strips) Use 1 test strip once a day blood-glucose meter (FreeStyle Lite Meter kit) As directed celecoxib (Celebrex) 200 mg PO DAILY cetirizine 10 mg PO DAILY cholecalciferol (vitamin D3) 25 mcg PO DAILY 90 days cromolyn 4% 1 drp ophthalmic (eye) QID epinephrine 0.3 mg IM DIRECTED fluticasone propionate 50 mcg/actuation 1 spray intranasal DAILY gabapentin 100 - 300 mg (1 - 3 x 100 mg) PO BEDTIME 30 days ketotifen fumarate 0.025%(0.035%) drps ophthalmic (eye) lancets (FreeStyle Lancets) Use 1 lancet once a day lisinopril 5 mg PO DAILY 90 days metformin 500 mg PO BID 90 days omeprazole 20 mg PO DAILY 30 days ondansetron 4 mg PO Q6-8H PRN triamcinolone acetonide 0.1% 1 appl topical BID Tobacco use date assessed: 04/08/23 Dental Screening Dental Screen Date: 04/08/23 Did you have a dental visit in the last 12 months?: No Did you have a dental problem in the last 6 months where you did not have access to dental care?: No Was dental information given to patient?: Patient has dentist HPI HPI Comments History of Present Illness Details This is a 53-year-old female with diabetes mellitus type 2, hypertension and hyperlipidemia that comes today as a hospital discharge follow-up with discharge date 04/05/2023 due to syncope. Patient said that 3 days ago she was feeling dizzy the whole day and went to the bathroom to have a bowel movement but nothing came up and while she was walking to her bedroom she lost consciousness and hit a closet with her head. Denies any tremors while being unconscious last per witness. Denies bowel or bladder incontinence. Denies palpitations before the event. As per patient she was very well hydrated. Family members took her to ER. Had head CT and CT of the neck showing only mild cervical spondylosis. Had labs that showed no significant abnormality. EKG was normal sinus rhythm. Will have echocardiogram and be referred to Neurology and Cardiology. Last A1c was within goal. Blood pressure stable. Last LDL was very close to goal and this will be monitor. FORMERLY [facility], [facility] Medical History (Updated 04/08/23 @ 15:14 by Ariana De Anda MD) Diabetes 1.5, managed as type 2 Diabetes History of gestational diabetes Pancreatitis Colon cancer screening Physical exam Peroneal neuropathy Dyslipidemia Impaired glucose tolerance Hypovitaminosis D Seasonal allergies Uterine fibroid HTN (hypertension) Surgical History History of cholecystectomy History of myomectomy Hx of tubal ligation Hx of section Family History Mother HTN (hypertension) Asthma Arthritis Paternal Aunt HTN (hypertension) Diabetes mellitus Breast cancer Maternal Grandfather Diabetes mellitus Prostate cancer Stomach cancer Paternal Grandfather Diabetes mellitus HTN (hypertension) Father HTN (hypertension) Substance use disorder Social History Housing: House Alcohol intake: never Patient Tobacco Use Status: Never used Tobacco e-Cigarette/Vaping Use: Never Used Second Hand Smoke Exposure: No service: No Current occupational status: employed Current occupational exposures/hazards: No Gender identity: Female Cognitive needs: No Hearing needs: No Vision needs: No Female Reproductive History Menstrual Age of Menarche: 15 Date of menopause: 01/19/20 Questionnaire PHQ-9 Over the last 2 weeks, how often have you been bothered by any of the following problems? 1. Little interest or pleasure in doing things: not at all 2. Feeling down, depressed, or hopeless: not at all 3. Trouble falling or staying asleep, or sleeping too much: not at all 4. Feeling tired or having little energy: not at all 5. Poor appetite or overeating: not at all 6. Feeling bad about yourself - or that you are a failure or have let yourself or your family down: not at all 7. Trouble concentrating on things, such as reading the newspaper or watching television: not at all 8. Moving or speaking so slowly that other people could have noticed. Or the opposite - being so fidgety or restless that you have been moving around a lot more than usual: not at all 9. Thoughts that you would be better off or of hurting yourself in some way: not at all Total score: 0 Depression Screening Interpretation: Negative Depression Screening Done: Yes 27275 - PHQ-9 Billing: Yes Source: Developed by Drs. Turner Craft, Brandi Herman, Kushal Vergara and colleagues, with an educational sami from [employer]. Thrive Questionnaire Date Thrive assessed: 04/08/23 I am a: Patient What is your living situation today?: I have a steady place to live Within the past 12 months, did the food you bought not last and you didn't have the money to get more?: Never true Within the past 12 months, did you worry whether your food would run out before you got money to buy more?: Never true Do you have trouble paying for medicines?: No Do you have trouble getting transportation to medical appointments?: No Do you have trouble paying your heating and electricity bill?: No Do you have trouble taking care of your child, family member or friend?: No Do you have trouble with day-to-day activities such as bathing, preparing meals, shopping, managing finances, etc.?: No Are you currently unemployed and looking for a job?: No Are you interested in more education?: No Please select the resources that you would like help with: None Currently or been in a relationship where the following occur: no concerns reported THRIVE Score: 0 AUDIT C Alcohol Use Questionnaire (AUDIT-C) 1. How often do you have a drink containing alcohol?: Never Total Score: 0 BRANDY-7 AMB Questionnaire BRANDY-7 Date BRANDY - 7 assessed: 04/08/23 Feeling nervous, anxious, or on edge: 0 = Not at all Not being able to stop or control worryin = Not at all Worrying too much about different things: 0 = Not at all Trouble relaxin = Not at all Being so restless that it is hard to sit still: 0 = Not at all Becoming easily annoyed or irritable: 0 = Not at all Feeling afraid as if something awful might happen: 0 = Not at all Total BRANDY-7 score (0-4 normal; 5-9 mild; 10-14 moderate; 15-21 severe): 0 Source: Developed by Drs. Turner Craft, Brandi Herman, Kushal Vergara and colleagues, with an educational sami from [employer]. BRANDY-7 Assessment Billing BRANDY-7 Assessment Tool: BRANDY-7 Assessment 49148 Review of Systems Const All systems reviewed & are unremarkable except as noted in HPI and below Eyes Reports no additional complaints, Denies change in vision and Denies other visual disturbances Card Denies chest pain at rest, Denies chest pain with activity, Denies edema, Denies irregular heart rhythm, Denies claudication, Denies dyspnea, Denies dyspnea on exertion, Denies orthopnea, Denies paroxysmal nocturnal dyspnea and Denies slow heart rate Resp Denies cough, Denies dyspnea and Denies dyspnea on exertion GI Denies abdominal pain, Denies change in bowel habits, Denies excessive flatus, Denies nausea and Denies vomiting Denies urinary incontinence, Denies urinary hesitancy and Denies urinary urgency Musc Denies abnormal gait, Denies atrophy, Denies deformity and Denies limited range of motion Skin/Breast Denies bleeding lesions, Denies changing lesions and Denies rash Neuro Denies abnormal gait and Denies lack of coordination Physical exam (Primary Care) Vital Signs: Last Vital Signs BP 120/80 04/08/23 13:24 BMI result Body Mass Index 28.3 Tobacco/Smoking Status: Tobacco use Status Tobacco use date assessed 04/08/23 04/08/23 13:32 Patient Tobacco Use Status Never used Tobacco 04/08/23 13:32 e-Cigarette/Vaping Use Never Used 04/08/23 13:32 PHQ-9: PHQ-9 Score PHQ-9: Total score 0 04/08/23 14:02 Depression Screening Interpretation: Negative Thrive Assessment: Date of Thrive Assessment Date Thrive assessed 04/08/23 04/08/23 13:32 Currently or been in a relationship where the following occur: no concerns reported Const Orientation/consciousness: patient oriented x3 Eyes General: appearance normal, both eyes and all related structures Eyelids: Yes eyelids normal Conjunctivae: conjunctivae normal Neck Neck: Yes normal visual inspection and Yes supple Resp Effort & Inspection: normal respiratory effort Auscultation: clear to auscultation bilaterally Cardio Jugular venous distension: no JVD Rate: regular rate Rhythm: regular rhythm Heart sounds: S1 normal heart sound present, S2 normal heart sound present and Murmur heart sound present Neuro General: patient oriented x3 and no focal motor deficits Extrem General: Yes full ROM Psych Appearance: grossly normal Assessment and Plan Assessment & Plan (1) Hospital discharge follow-up: Code(s): Z09 - Encounter for follow-up examination after completed treatment for conditions other than malignant neoplasm Plan: Discharge date 04/05/2023 due to syncope. Head CT negative. CT of the neck showing mild cervical spondylosis. EKG normal. (2) Syncope: Code(s): R55 - Syncope and collapse Plan: Echocardiogram ordered. Referred to Cardiology and Neurology. (3) Diabetes mellitus: Code(s): E11.9 - Type 2 diabetes mellitus without complications Qualifiers: Diabetes mellitus type: type 2 Diabetes mellitus usp insulin use: without usp use Diabetes mellitus complication status: without complication Qualified Code(s): E11.9 - Type 2 diabetes mellitus without complications Plan: Continue metformin. A1c goal is equal or less than 7%. (4) Hyperlipidemia LDL goal <70: Code(s): E78.5 - Hyperlipidemia, unspecified Plan: Continue statins. LDL goal is less than 70. (5) HTN (hypertension): Code(s): I10 - Essential (primary) hypertension Qualifiers: Hypertension type: essential hypertension Qualified Code(s): I10 - Essential (primary) hypertension Plan: Continue lisinopril. Blood pressure goal is equal or less than 130/80. Orders: Orders CA echo transthoracic complete Today R01.1 - Cardiac murmur, unspecified, R55 - Syncope and collapse Referrals Cardiology Referral R55 - Syncope and collapse Coding Level of Care Code TCM Mod MDM <= 7 Days Diagnoses Hospital discharge follow-up Z09 Syncope R55 Type 2 diabetes mellitus without complication, without long-term current use of insulin E11.9 Diabetes mellitus type: type 2 Diabetes mellitus terminal superintendent insulin use: without terminal superintendent use Diabetes mellitus complication status: without complication Hyperlipidemia LDL goal <70 E78.5 Essential hypertension I10 Hypertension type: essential hypertension Additional Codes BRANDY-7 Assessment Billing - BRANDY-7 Assessment Tool: BRANDY-7 Assessment [id number] ([id number]) Time Spent (min) 23
== END 2023-04-08 14:09 | disposition home or self-care (01) ==
PROVIDERS: PCP Internal Medicine; Visit Provider Internal Medicine
DX: E11.9 Type 2 diabetes mellitus without complications (principal); Z09 Encounter for follow-up examination after completed treatment for conditions other than malignant neoplasm; R55 Syncope and collapse; E78.5 Hyperlipidemia, unspecified; I10 Essential (primary) hypertension
CPT/HCPCS: 99213

== ENCOUNTER 2023-04-16 08:22 | Outpatient (AMB) | payer OTHER, SELFPAY ==
--- NOTE | 2023-04-16 08:27 | A.OFFVIS_ITS ---
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 She is doing well with no concerns. Recent ED CT scan revealed fibroid, last US 2019 w/fibroid. She denies any pelvic pain. Attempting to eat a healthy diet with vitamin D, and stays active with exercise w/walking. Currently sexually active w/. Denies any irritation, admits to dryness, not using anything. STI testing offered; she declines. Menopausal x 4 years. Last pap smear; 2022. Last mammogram; 2022. Colonoscopy is UTD. Denies any family history of ovarian or colon cancer. FH breast cancer. [facility] Medical History Diabetes 1.5, managed as type 2 Diabetes History of gestational diabetes Pancreatitis Colon cancer screening Physical exam Peroneal neuropathy Dyslipidemia Impaired glucose tolerance Hypovitaminosis D Seasonal allergies Uterine fibroid HTN (hypertension) Surgical History History of cholecystectomy History of myomectomy Hx of tubal ligation Hx of section Family History Mother HTN (hypertension) Asthma Arthritis Paternal Aunt HTN (hypertension) Diabetes mellitus Breast cancer Maternal Grandfather Diabetes mellitus Prostate cancer Stomach cancer Paternal Grandfather Diabetes mellitus HTN (hypertension) Father HTN (hypertension) Substance use disorder Social History Housing: House Alcohol intake: never Patient Tobacco Use Status: Never used Tobacco e-Cigarette/Vaping Use: Never Used Second Hand Smoke Exposure: No service: No Current occupational status: employed Current occupational exposures/hazards: No Gender identity: Female Cognitive needs: No Hearing needs: No Vision needs: No Female Reproductive History Menstrual Age of Menarche: 15 control method: permanent sterilization Permanent Sterilization: BTL Date of menopause: 01/19/20 Total pregnancies: 1 Full term: 1 Number of Living Children: 1 Date of last pap smear: 02/12/22 (neg) Date of Mammogram: 01/28/23 (Birad 1) Review of Systems Const All systems reviewed & are unremarkable except as noted in HPI and below Reports as per HPI Eyes Reports no additional complaints ENT Reports no additional complaints Card Reports no additional complaints Resp Reports no additional complaints GI Reports as per HPI and Reports no additional complaints Reports as per HPI Musc Reports no additional complaints Skin/Breast Reports as per HPI Neuro Reports no additional complaints Psych Reports no additional complaints Endo Reports no additional complaints William/Lymph Reports no additional complaints Aller/Immun Reports no additional complaints Physical Exam Vital Signs: Last Vital Signs BP 120/76 04/16/23 08:28 BMI result Body Mass Index 28.0 Const General: cooperative, healthy appearing, no acute distress, well developed and alert Orientation/consciousness: patient oriented x3 HEENT Head: Yes normal to inspection Eyes General: appearance normal, both eyes and all related structures Neck Neck: Yes normal visual inspection Thyroid: Thyroid normal Chest Chest palpation & inspection: normal inspection of the chest and other (no puckering, dimpling, peau de orange, retraction, discharge, masses) Breast/axilla inspection: normal inspection of the breasts Breast/axilla palpation: normal palpation of the breasts Resp Effort & Inspection: normal respiratory effort GI Inspection: Yes normal to inspection Palpation (GI): Soft to palpation Rectal Exam - Female: deferred General: Yes bladder normal to palpation External Female Exam: normal external appearance and normal appearance of the urethra Speculum Exam - Vagina: normal appearance of the vagina, normal palpation, normal vaginal discharge and vagina atrophic Speculum Exam - Cervix: normal appearance of the cervix and normal palpation Bimanual exam- vagina & uterus: normal bimanual exam, normal palpation, uterine size normal, bladder normal to palpation, normal palpation and non-tender Bimanual Exam- Adnexa, other: no masses Skin General skin exam: no rashes or lesions noted Rashes: no rashes Neuro General: patient oriented x3 Cognition (Neuro): normal cognition Extrem General: Yes normal to inspection Psych Attitude: cooperative Thought process: Normal thought process present Assessment & Plan Assessment & Plan (1) Well woman exam with routine gynecological exam: Code(s): Z01.419 - Encounter for gynecological examination (general) (routine) without abnormal findings (2) Fibroid: Code(s): D21.9 - Benign neoplasm of connective and other soft tissue, unspecified Plan Discussed: Current recommendations for pap smears per ASCCP guidelines. Breast awareness, periodic self breast exams and yearly mammogram. Maintain a healthy lifestyle, well balanced diet including Calcium 1,200 mg and Vitamin D 600 IU daily, and routine exercise. Counseled regarding usage of Replens. Counseled re: Leiomyoma: common pelvic neoplasm. Differential diagnosis-may include leiomyosarcoma which is a rare uterine sarcoma 3-7/100,000, difficult to distinguish from fibroids on ultrasound from uterine sarcoma's. Unlikely any single test will have a highly positive predictive value. Hysterectomy is not recommended for sole purpose of excluding malignant neoplasm. Report any PMB. Pelvic pressure, bloating, or pain. Ultrasound ordered plan follow-up pending results. Patient verbalizes understanding and agrees to the plan of care. She was given opportunity to ask questions and all questions were answered to the best of my ability. 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 This note is constructed using voice recognition software. While every effort has been made to ensure accuracy, clinical data research errors may have been included. Orders: Orders US pelvic and transvaginal Today D21.9 - Benign neoplasm of connective and other soft tissue, unspecified Coding Level of Care Code Est Pt Prev Care 40-64y(59354) Diagnoses Well woman exam with routine gynecological exam Z01.419 Fibroid D21.9
[2023-04-16 08:28] VITALS: BP 120/76; BMI 28.0
== END 2023-04-16 09:01 | disposition home or self-care (01) ==
LOC: HO.HWS 08:23
PROVIDERS: PCP Internal Medicine; Visit Provider Advanced Practice Midwife
DX: Z01.419 Encounter for gynecological examination (general) (routine) without abnormal findings (principal); D21.9 Benign neoplasm of connective and other soft tissue, unspecified
CPT/HCPCS: 99396

== ENCOUNTER → 2023-04-16 08:22 | Outpatient (BNVA) | payer OTHER, SELFPAY | PROVIDERS: PCP Internal Medicine; Visit Provider Advanced Practice Midwife | DX: Z01.419 Encounter for gynecological examination (general) (routine) without abnormal findings (principal); D21.9 Benign neoplasm of connective and other soft tissue, unspecified | CPT/HCPCS: 99396 ==

== ENCOUNTER 2023-05-01 10:51 | Outpatient (REF) | payer OTHER, SELFPAY ==
--- NOTE | ~2023-05-01 | US_ITS ---
EXAMINATION: US PELVIS AND TRANSVAGINAL CLINICAL INFORMATION: Benign neoplasm of connective and other soft tissues, history of fibroids. COMPARISON: CT abdomen and pelvis 04/05/2023. Pelvic ultrasound 01/09/2020. TECHNIQUE: Ultrasound of the pelvis is performed using both transabdominal and transvaginal transducers along with Doppler. Transvaginal imaging is performed due to inadequate visualization transabdominally. FINDINGS: The uterus is heterogeneous, anteverted and measures 7.8 x 3.8 x 4.1 cm. 2.0 x 2.0 x 2.3 cm right uterine lesion characteristic of a fibroid previously measured 1.9 x 1.5 x 1.9 cm. Similar 1.0 x 1.0 x 0.9 cm uterine lesion was not previously identified. Visualization of the uterus and bilateral ovaries is fairly limited due to bowel gas. No significant free fluid. Visualization of endometrium is severely limited, but imaged segment of endometrium is probably 6 mm in thickness. Correlation with clinical history and gynecologic consultation recommended to determine further management. Unknown last menstrual period. Right ovary measures 2.0 x 1.7 x 1.4 cm, volume 2.5 mL. Left ovary measures 1.8 x 2.3 x 1.6 cm, volume 3.5 mL. Bilateral ovaries are grossly unremarkable, although visualization is severely limited due to bowel gas. No significant free fluid appreciated. US/US pelvic and transvaginal IMPRESSION: 1. Uterine fibroids, largest 2.3 cm. 2. Visualization of the uterus and bilateral ovaries is fairly limited due to bowel gas. No significant free fluid. 3. Visualization of endometrium is severely limited, but imaged segments of endometrium is probably 6 mm in thickness. Correlation with clinical history and gynecologic consultation recommended to determine further management. Unknown last menstrual period.
== END 2023-05-01 10:52 | disposition home or self-care (01) ==
LOC: HO.US 10:51
PROVIDERS: PCP Internal Medicine; Visit Provider Advanced Practice Midwife
DX: D21.9 Benign neoplasm of connective and other soft tissue, unspecified (principal)
CPT/HCPCS: 76830; 76856

== ENCOUNTER → 2023-05-06 07:22 | Outpatient (REF) | payer OTHER, SELFPAY ==
--- NOTE | 2023-05-06 07:39 | CA_ITS ---
Transthoracic Echocardiogram Patient (Last, First, Middle): Jenelle Anglin I Gender: Female Date of : 1970 Age: 53 Procedure Date: 05/06/2023 Procedure Type: Transthoracic Echocardiogram Location: OP Height: 157.48 cm Weight: 69.4 kg BSA: 1.71 m2 Heart Rate: 70 bpm BP: 118 / 72 mmHg Hotel Server: BELLA Referring MD: Ariana De Anda MD Buffing Turner And Counter: Casa Garza MD Symptoms: R01.1 - Cardiac murmur, unspecified Study Quality: Adequate ECG Rhythm: Sinus Conclusions: - Normal study Findings Left Ventricle Normal left ventricular size, thickness, and systolic function. The visually estimated ejection fraction is between 60-65%. Spectral Doppler is indicative of a normal filling pattern. Right Ventricle Normal right ventricular cavity size and systolic function. Atria Both atria are normal in size. There is no evidence of interatrial shunt. Aortic Valve Normal aortic valve structure and function. There is no aortic valve stenosis. There is no aortic valve regurgitation. Mitral Valve Normal mitral valve structure and function. There is no mitral valve regurgitation. There is no mitral valve stenosis. Pulmonic Valve The pulmonic valve is likely normal. There is trace pulmonic valve regurgitation. Tricuspid Valve Normal tricuspid valve structure. There is trace tricuspid valve regurgitation. The right ventricular systolic pressure is normal. The right ventricular systolic pressure is 17 mmHg. Normal right atrial pressure. There is no evidence of pulmonary hypertension. Great Vessels All visible segments of the aorta are normal in size. The visualized portions of the pulmonary artery and branches are normal. Venous The inferior vena cava is normal in size and collapses greater than 50% with inspiration. Pericardium/Pleural There is no evidence of pericardial effusion. Prior Study Comparison No prior study available for comparison. Measurements 2D Linear Measurements IVSd: 0.76 0.6-0.9/0.6-1.0 cm LVIDd: 4.65 3.9-5.3/4.2-5.9 cm LVIDd Index: 2.72 2.4-3.2/2.2-3.1 cm/m2 LVIDs: 2.98 2.0-3.6 cm LVPWd: 0.76 0.7-1.1 cm Ao Root: 2.70 2.1-3.5 cm LA Diam: 3.30 2.7-3.8/3.0-4.0 cm LAIDs Index: 1.93 1.5-2.3 cm/m2 LV Mass: 139.48 67-162/88-224 g LV Mass Index: 81.57 43-95/49-115 g/m2 LVOT Diam: 2.00 3.0+(-)1.3 cm 2D Systolic Function EF 4C: 62.20 >55% EF 2C: 67.90 >55% EF BiP: 64.90 >55% Mitral Valve MV Pk E: 0.72 MV PK A: 0.53 MV Decel Time: 154.00 E/A: 1.30 E'Lateral: 11.90 E'Medial: 8.59 E/E' Med: 8.30 E/E' Lat: 6.00 PHT: 45.00 MVA PHT: 4.89 Decel [place]: 4.65 Aortic Valve AoV Pk Gume: 1.01 AoV Pk Grad: 4.00 JASON: 2.66 LVOT LVOT Pk Gume: 0.86 LVOT Mn Gume: 0.57 LVOT VTI: 0.19 LVOT Pk Grad: 3.00 LVOT Mn Grad: 2.00 LVOT Diam: 2.00 LVOT Area: 3.14 Diastolic Function MV Pk E: 0.72 MV Pk A: 0.53 E/A: 1.30 E'Medial: 8.59 E/E' Med: 8.30 E' Laterial: 11.90 E/E' Lat: 6.00 Right Ventricle TAPSE (mm): 18.20 TVS' Gume: 9.10 Tricuspid Valve TR Pk Gume: 1.84 TR Pk Grad: 14.00 RA Press: 3.00 RVSP: 17.00 Great Vessels Aorta Ao Root-2D: 2.70 2.0-3.7 cm Ao Asc: 2.60 2.1-3.4 cm Pulmonary Valve PV Pk Gume: 0.94 Peak PV Grad: 4.00 Updated in Other Vendor System with Status of Final Casa Garza MD electronically signed on 05/06/2023 10:10:53 AM with status of Final
[2023-05-06 08:18] LABS: Alanine Aminotransferase 34 U/L (0-31); Albumin Level 4.3 g/dL (3.5-5.0); Alkaline Phosphatase 56 U/L (39-117); Anion Gap 11 (12-20); Aspartate Amino Transferase 25 U/L (5-31); Bilirubin Total 0.5 mg/dL (0.0-1.0); Blood Urea Nitrogen 22 mg/dL (9-16); Calcium 9.8 mg/dL (8.4-10.2); Carbon Dioxide 29 mmol/L (22-29); Chloride 105 mmol/L (96-108); Cholesterol 138 mg/dL (<200); Estimated Glomerular Filt Rate > 60; Glucose Fasting 102 mg/dL (60-99); HDL Cholesterol 42 mg/dL (>40); LDL Cholesterol Calculated 75 mg/dL (<100); Potassium 4.4 mmol/L (3.3-5.1); Sodium 141 mmol/L (135-145); Total Protein 7.5 g/dL (6.5-8.0); Triglycerides 105 mg/dL (<150)
[2023-05-06 08:33] LABS: Vitamin D 25-OH Total 35.3 ng/mL (>30)
[2023-05-06 09:07] LABS: Creatinine Urine 242.15 mg/dL; Microalbum/Creatinine Ratio Ur 4.9 ug/mg cr (<30)
== END ==
LOC: HO.CARD 07:22
PROVIDERS: PCP Internal Medicine; Visit Provider Internal Medicine
DX: R01.1 Cardiac murmur, unspecified (principal); R55 Syncope and collapse; E11.9 Type 2 diabetes mellitus without complications; E78.5 Hyperlipidemia, unspecified; E55.9 Vitamin D deficiency, unspecified
CPT/HCPCS: 36415; 80053; 80061; 82043; 82306; 82570; 93306

== ENCOUNTER → 2023-05-06 07:39 | Outpatient (BNV) | payer OTHER, SELFPAY | PROVIDERS: PCP Internal Medicine; Visit Provider Internal Medicine Cardiovascular Disease | DX: R01.1 Cardiac murmur, unspecified (principal) | CPT/HCPCS: 93306 ==

== ENCOUNTER 2023-05-07 09:23 | Outpatient (AMB) | payer OTHER, SELFPAY ==
--- NOTE | 2023-05-07 09:32 | MHC.PC.OV ---
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 Required: No Accompanied by: Self / Same As Patient Allergies Seasonal Allergies Allergy (Mild, Verified 05/07/23 09:48) runny nose/itchy eyes Medication List - Last Reconciled 05/07/23 by Ariana De Anda MD atorvastatin 40 mg PO BEDTIME 90 days blood sugar diagnostic (FreeStyle Lite Strips) Use 1 test strip once a day blood-glucose meter (FreeStyle Lite Meter kit) As directed celecoxib (Celebrex) 200 mg PO DAILY cetirizine 10 mg PO DAILY cholecalciferol (vitamin D3) 25 mcg PO DAILY 90 days cromolyn 4% 1 drp ophthalmic (eye) QID epinephrine 0.3 mg IM DIRECTED fluticasone propionate 50 mcg/actuation 1 spray intranasal DAILY gabapentin 100 - 300 mg (1 - 3 x 100 mg) PO BEDTIME 30 days ketotifen fumarate 0.025%(0.035%) drps ophthalmic (eye) lancets (FreeStyle Lancets) Use 1 lancet once a day lisinopril 5 mg PO DAILY 90 days metformin 500 mg PO BID 90 days omeprazole 20 mg PO DAILY 30 days ondansetron 4 mg PO Q6-8H PRN triamcinolone acetonide 0.1% 1 appl topical BID Tobacco use date assessed: 04/08/23 Dental Screening Dental Screen Date: 05/07/23 Did you have a dental visit in the last 12 months?: No Did you have a dental problem in the last 6 months where you did not have access to dental care?: No Was dental information given to patient?: Patient has dentist HPI HPI Comments History of Present Illness Details This is a 53-year-old female with diabetes mellitus type 2 that comes for her physical exam. A1c within goal. Last mammogram was January 2023. Last Pap smear was February 2022. Last colonoscopy was 2022 which was normal and next colonoscopy should be 2032. Denies any chest pain or shortness of breath. Fasting blood glucose was 46 today and she was feeling dizzy and weak. Had an episode of syncope recently and echocardiogram was normal. Neurology and cardiology consult for syncope pending. Diabetic eye exam also done 2022 and showed no diabetic retinopathy as per patient. [facility] Medical History (Updated 05/07/23 @ 10:02 by Ariana De Anda MD) Diabetes History of gestational diabetes Pancreatitis Colon cancer screening Physical exam Peroneal neuropathy Dyslipidemia Impaired glucose tolerance Hypovitaminosis D Seasonal allergies Uterine fibroid HTN (hypertension) Surgical History History of cholecystectomy History of myomectomy Hx of tubal ligation Hx of section Family History Mother HTN (hypertension) Asthma Arthritis Paternal Aunt HTN (hypertension) Diabetes mellitus Breast cancer Maternal Grandfather Diabetes mellitus Prostate cancer Stomach cancer Paternal Grandfather Diabetes mellitus HTN (hypertension) Father HTN (hypertension) Substance use disorder Social History Housing: House Alcohol intake: never Patient Tobacco Use Status: Never used Tobacco e-Cigarette/Vaping Use: Never Used Second Hand Smoke Exposure: No service: No Current occupational status: employed Current occupational exposures/hazards: No Gender identity: Female Cognitive needs: No Hearing needs: No Vision needs: No Female Reproductive History Menstrual Age of Menarche: 15 Date of menopause: 01/19/20 Questionnaire Thrive Questionnaire Date Thrive assessed: 04/08/23 BRANDY-7 AMB Questionnaire BRANDY-7 Date BRANDY - 7 assessed: 04/08/23 Source: Developed by Drs. Turner Craft, Brandi Herman, Kushal Vergara and colleagues, with an educational sami from [employer]. Review of Systems Const All systems reviewed & are unremarkable except as noted in HPI and below Eyes Reports no additional complaints, Denies change in vision and Denies other visual disturbances Card Denies chest pain at rest, Denies chest pain with activity, Denies edema, Denies irregular heart rhythm, Denies claudication, Denies dyspnea, Denies dyspnea on exertion, Denies orthopnea, Denies paroxysmal nocturnal dyspnea and Denies slow heart rate Resp Denies cough, Denies dyspnea and Denies dyspnea on exertion GI Denies abdominal pain, Denies change in bowel habits, Denies excessive flatus, Denies nausea and Denies vomiting Denies urinary incontinence, Denies urinary hesitancy and Denies urinary urgency Physical exam (Primary Care) Vital Signs: Last Vital Signs BP 118/80 05/07/23 09:33 BMI result Body Mass Index 27.8 Tobacco/Smoking Status: Tobacco use Status Tobacco use date assessed 04/08/23 05/07/23 09:39 Patient Tobacco Use Status Never used Tobacco 05/07/23 09:39 e-Cigarette/Vaping Use Never Used 05/07/23 09:39 Thrive Assessment: Date of Thrive Assessment Date Thrive assessed 04/08/23 05/07/23 09:39 Const Orientation/consciousness: patient oriented x3 HENMT Head: Yes normal to inspection, Yes normocephalic and Yes atraumatic Ears: external ears normal Eyes General: appearance normal, both eyes and all related structures Eyelids: Yes eyelids normal Conjunctivae: conjunctivae normal Neck Neck: Yes normal visual inspection and Yes supple Resp Effort & Inspection: normal respiratory effort Auscultation: clear to auscultation bilaterally Cardio Jugular venous distension: no JVD Rate: regular rate Rhythm: regular rhythm Heart sounds: S1 normal heart sound present and S2 normal heart sound present GI Inspection: Yes normal to inspection Palpation (GI): Soft to palpation and nontender Auscultation: normal bowel sounds Skin General skin exam: no rashes or lesions noted Neuro General: patient oriented x3 and no focal motor deficits Extrem General: Yes full ROM Psych Appearance: grossly normal Results AMB Hemoglobin A1c AMB Hemoglobin A1c 6.0 % Last Edit by ZEKE Goetz on 05/07/23 09:42 Results Reviewed Results Reviewed: Laboratory Last Values Hgb A1c (Clinic) 6.0 % (4.0-6.0) 05/07/23 09:32 Assessment and Plan Assessment & Plan (1) Physical exam: Code(s): Z00.00 - Encounter for general adult medical examination without abnormal findings Plan: Repeat in a year. 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 A1c goal is equal or less than 7%. Orders: Orders AMB Hemoglobin A1c Today E11.9 - Type 2 diabetes mellitus without complications Lipid Panel 4 Months E78.5 - Hyperlipidemia, unspecified Vitamin D 25-OH Total 4 Months E55.9 - Vitamin D deficiency, unspecified Microalbumin, Random (w Creat) 4 Months E11.9 - Type 2 diabetes mellitus without complications Comprehensive [place]. Panel Fast 4 Months Z00.00 - Encounter for general adult medical examination without abnormal findings Coding Level of Care Code Est Pt Prev Care 40-64y([id number]) Diagnoses Physical exam Z00.00 Type 2 diabetes mellitus without complication, without long-term current use of insulin E11.9 Diabetes mellitus type: type 2 Diabetes mellitus alf insulin use: without buttermilk drier operator use Diabetes mellitus complication status: without complication Time Spent (min) 33
[2023-05-07 09:33] VITALS: BP 118/80; BMI 27.8
== END 2023-05-07 10:08 | disposition home or self-care (01) ==
PROVIDERS: Visit Provider Internal Medicine
DX: Z00.00 Encounter for general adult medical examination without abnormal findings (principal); E11.9 Type 2 diabetes mellitus without complications
CPT/HCPCS: 83036; 99396

== ENCOUNTER 2023-05-26 08:37 | Outpatient (REF) | payer OTHER, SELFPAY ==
[2023-05-27 10:54] LABS: Mumps Virus IgG Antibody >300.00 AU/mL; Rubella IgG Antibody 4.76 Index
[2023-05-28 22:39] LABS: TS Negative Control Passed; TS Panel A 0; TS Panel B 0; TS Positive Control Passed; TSpotTB Negative (Negative)
== END 2023-05-26 08:38 | disposition home or self-care (01) ==
LOC: HO.LAB 08:37
PROVIDERS: Visit Provider Internal Medicine
DX: Z01.84 Encounter for antibody response examination (principal); Z11.1 Encounter for screening for respiratory tuberculosis
CPT/HCPCS: 36415; 86481; 86735; 86762; 86765

== ENCOUNTER 2023-06-05 09:46 | Outpatient (AMB) | payer OTHER, SELFPAY ==
--- NOTE | 2023-06-05 09:51 | MHC.OFFVIS ---
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 Postmenopausal x2 years, no postmenopausal bleeding. History of myomectomy in the past. [facility] Medical History (Updated 06/05/23 @ 10:49 by Francesca Vides CNM) Fibroid Diabetes History of gestational diabetes Pancreatitis Colon cancer screening Physical exam Peroneal neuropathy Dyslipidemia Impaired glucose tolerance Hypovitaminosis D Seasonal allergies Uterine fibroid HTN (hypertension) Surgical History History of cholecystectomy History of myomectomy Hx of tubal ligation Hx of section Family History Mother HTN (hypertension) Asthma Arthritis Paternal Aunt HTN (hypertension) Diabetes mellitus Breast cancer Maternal Grandfather Diabetes mellitus Prostate cancer Stomach cancer Paternal Grandfather Diabetes mellitus HTN (hypertension) Father HTN (hypertension) Substance use disorder Social History Housing: House Alcohol intake: never Patient Tobacco Use Status: Never used Tobacco e-Cigarette/Vaping Use: Never Used Second Hand Smoke Exposure: No service: No Current occupational status: employed Current occupational exposures/hazards: No Gender identity: Female Cognitive needs: No Hearing needs: No Vision needs: No Female Reproductive History Menstrual Age of Menarche: 15 Date of menopause: 01/19/20 Review of Systems Const All systems reviewed & are unremarkable except as noted in HPI and below Endo Reports no additional complaints Physical Exam Vital Signs: Last Vital Signs BP 108/60 06/05/23 09:54 BMI result Body Mass Index 27.4 Const General: cooperative, healthy appearing and no acute distress Psych Appearance: well kempt Attitude: cooperative Thought process: Normal thought process present Results Reviewed Results Reviewed: [address] [address] Ultrasound Report Signed Patient: Jenelle Anglin I MR#: [id number] : 1970 Acct:[id number] Age/Sex: 53 / F ADM Date: 05/01/23 Loc: HO.US Attending Dr: Francesca Vides CNM Ordering Physician: Francesca Vides CNM Date of Service: 05/01/23 Procedure(s): US pelvic and transvaginal Accession Number(s): [id number] cc: Francesca Vides CNM; Ariana Arias MD~ EXAMINATION: US PELVIS AND TRANSVAGINAL CLINICAL INFORMATION: Benign neoplasm of connective and other soft tissues, history of fibroids. COMPARISON: CT abdomen and pelvis 04/05/2023. Pelvic ultrasound 01/09/2020. TECHNIQUE: Ultrasound of the pelvis is performed using both transabdominal and transvaginal transducers along with Doppler. Transvaginal imaging is performed due to inadequate visualization transabdominally. FINDINGS: The uterus is heterogeneous, anteverted and measures 7.8 x 3.8 x 4.1 cm. 2.0 x 2.0 x 2.3 cm right uterine lesion characteristic of a fibroid previously measured 1.9 x 1.5 x 1.9 cm. Similar 1.0 x 1.0 x 0.9 cm uterine lesion was not previously identified. Visualization of the uterus and bilateral ovaries is fairly limited due to bowel gas. No significant free fluid. Visualization of endometrium is severely limited, but imaged segment of endometrium is probably 6 mm in thickness. Correlation with clinical history and gynecologic consultation recommended to determine further management. Unknown last menstrual period. Right ovary measures 2.0 x 1.7 x 1.4 cm, volume 2.5 mL. Left ovary measures 1.8 x 2.3 x 1.6 cm, volume 3.5 mL. Bilateral ovaries are grossly unremarkable, although visualization is severely limited due to bowel gas. No significant free fluid appreciated. US/US pelvic and transvaginal IMPRESSION: 1. Uterine fibroids, largest 2.3 cm. 2. Visualization of the uterus and bilateral ovaries is fairly limited due to bowel gas. No significant free fluid. 3. Visualization of endometrium is severely limited, but imaged segments of endometrium is probably 6 mm in thickness. Correlation with clinical history and gynecologic consultation recommended to determine further management. Unknown last menstrual period. Dictated By: Kayy Hernandes MD Signed By: <Electronically signed by Kayy Hernandes MD in OV> 05/05/23 1345 DD/ 1130 TD/TT: Field Aide: Assessment & Plan Assessment & Plan (1) Encounter to discuss test results: Code(s): Z71.2 - Person consulting for explanation of examination or test findings (2) Endometrial thickening on ultrasound: Code(s): R93.89 - Abnormal findings on diagnostic imaging of other specified body structures (3) Fibroid: Code(s): D21.9 - Benign neoplasm of connective and other soft tissue, unspecified Category: Medical Plan Discuss: Ultrasound findings revealed a 6 mm endometrial stripe, thickened in a postmenopausal state. New fibroid since last scan in 2019. Advised endometrial biopsy. Patient defers today as she is not prepared and agrees to return to the office next week for the procedure. Preprocedure planning reviewed: Advised to eat and have fluids prior to the exam and also she can take either Tylenol or ibuprofen [id number] per manufacture's recommendations 1 hour with food prior to her exam to help with some cramping. Counseled re: Leiomyoma: common pelvic neoplasm. Differential diagnosis-may include leiomyosarcoma which is a rare uterine sarcoma 3-7/100,000, difficult to distinguish from fibroids on ultrasound from uterine sarcoma's. Unlikely any single test will have a highly positive predictive value. Hysterectomy is not recommended for sole purpose of excluding malignant neoplasm. Report any PMB, Pelvic pressure, bloating, or pain. Expectant management follow up in 6 months, then yearly for stability. Referral to MD if indicated for level of care. Patient will be scheduled for follow-up in 1 week for her EMB. All of her questions and concerns were addressed to the best of my ability. She is agreeable to the plan of care. This note is constructed using voice recognition software. While every effort has been made to ensure accuracy, packing room supervisor errors may have been included. Coding Level of Care Code Est Pt Level 3 (46398) Diagnoses Encounter to discuss test results Z71.2 Endometrial thickening on ultrasound R93.89 Fibroid D21.9
[2023-06-05 09:54] VITALS: BP 108/60; BMI 27.4
== END 2023-06-05 11:25 | disposition home or self-care (01) ==
PROVIDERS: PCP Internal Medicine; Visit Provider Advanced Practice Midwife
DX: Z71.2 Person consulting for explanation of examination or test findings (principal); R93.89 Abnormal findings on diagnostic imaging of other specified body structures; D21.9 Benign neoplasm of connective and other soft tissue, unspecified
CPT/HCPCS: 99213

== ENCOUNTER → 2023-06-05 09:46 | Outpatient (BNVA) | payer OTHER, SELFPAY | PROVIDERS: PCP Internal Medicine; Visit Provider Advanced Practice Midwife | DX: Z71.3 Dietary counseling and surveillance (principal); R93.89 Abnormal findings on diagnostic imaging of other specified body structures; D25.9 Leiomyoma of uterus, unspecified | CPT/HCPCS: 99212 ==

== ENCOUNTER 2023-06-12 10:47 | Outpatient (REF) | payer OTHER, SELFPAY | END 2023-06-12 10:48 | disposition home or self-care (01) | LOC: HO.LNP 10:47 | PROVIDERS: PCP Internal Medicine; Visit Provider Advanced Practice Midwife | DX: N95.0 Postmenopausal bleeding (principal) | CPT/HCPCS: 58100; 88305 ==

== ENCOUNTER 2023-06-12 10:47 | Outpatient (AMB) | payer OTHER, SELFPAY ==
[2023-06-12 10:50] VITALS: BP 112/66; BMI 27.4
--- NOTE | 2023-06-12 10:50 | MHC.OFFVIS ---
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 She has been postmenopausal for 2 years her recent ultrasound showed a thickened: 6 mm endometrial stripe, indicating a need for an endometrial biopsy. She has not had any postmenopausal bleeding. [facility] Medical History (Updated 06/05/23 @ 10:49 by Francesca Vides CNM) Fibroid Diabetes History of gestational diabetes Pancreatitis Colon cancer screening Physical exam Peroneal neuropathy Dyslipidemia Impaired glucose tolerance Hypovitaminosis D Seasonal allergies Uterine fibroid HTN (hypertension) Surgical History History of cholecystectomy History of myomectomy Hx of tubal ligation Hx of section Family History Mother HTN (hypertension) Asthma Arthritis Paternal Aunt HTN (hypertension) Diabetes mellitus Breast cancer Maternal Grandfather Diabetes mellitus Prostate cancer Stomach cancer Paternal Grandfather Diabetes mellitus HTN (hypertension) Father HTN (hypertension) Substance use disorder Social History Housing: House Alcohol intake: never Patient Tobacco Use Status: Never used Tobacco e-Cigarette/Vaping Use: Never Used Second Hand Smoke Exposure: No service: No Current occupational status: employed Current occupational exposures/hazards: No Gender identity: Female Cognitive needs: No Hearing needs: No Vision needs: No Female Reproductive History Menstrual Age of Menarche: 15 Date of menopause: 01/19/20 Review of Systems Const All systems reviewed & are unremarkable except as noted in HPI and below Physical Exam Vital Signs: Last Vital Signs Pulse 84 06/12/23 11:44 BP 116/70 06/12/23 11:44 BMI result Body Mass Index 27.4 Const General: cooperative, healthy appearing and no acute distress Orientation/consciousness: patient oriented x3 GI Inspection: Yes normal to inspection Palpation (GI): Soft to palpation and Other GI palpation findings present (Nontender) Rectal Exam - Female: visual inspection normal General: Yes bladder normal to palpation External Female Exam: normal appearance of the urethra Speculum Exam - Vagina: normal appearance of the vagina, normal palpation and normal vaginal discharge Speculum Exam - Cervix: normal appearance of the cervix and normal palpation Bimanual exam- vagina & uterus: normal bimanual exam, normal palpation, uterine size normal, bladder normal to palpation, normal palpation, uterine shape normal and non-tender Bimanual Exam- Adnexa, other: normal adnexae Neuro General: patient oriented x3 Office Procedures Endometrial Biopsy Details: The patient is here today for an endometrial biopsy due to postmenopausal endometrial thickening to rule out any pathology including atypical, hyperplasia or cancer cells of the uterus. She was counseled regarding anticipatory guidance for the procedure including the risks for pain, infection, bleeding, perforation, potential injury to the tissues may include the cervix, uterus, tubes, bladder and bowels. These injuries may include further treatment and evaluation including surgery, blood transfusions, antibiotics, hospitalizations and anesthesia. Permanent injury and scarring can occur. She was consented for the procedure, and the consent forms were signed. She is agreeable to have the procedure today. All questions were answered. Endometrial Biopsy Procedure: The patient was placed in the dorsal lithotomy position and a sterile speculum inserted. Using aseptic technique for the procedure. The cervix was cleansed with Betadine x 3 swabs. A single toothed tenaculum was placed on the cervix for stabilization and the uterus was sounded to 8 cm with a 4mm pipelle for 4 passes. Minimal bleeding was observed. The tissue sample was placed in formalin in a patient labeled container by staff assisting and sent to the pathology department for processing and interpretation. She experienced lightheadedness, rested and had water, resolving her symptoms. Vital signs were stable throughout including orthostatics. She admits that her blood sugar was elevated this morning due to her sugar intake last evening, she ate before the procedure. The patient tolerate the procedure well and was in good condition when leaving the department. Endometrial Biopsy Post Procedure Care: Nothing in the vagina including: tampons, douching or intimacy until all the bleeding has subsided. There may be some post procedure bleeding for several days, this bleeding is usually light and may turn to a light brown or pink color. Mild cramps may occurs. Nothing in the vaginal including: tampons, douching, or intimacy until all the bleeding has subsided. You may take an over the counter mild analgesic such as Tylenol or Advil (if no allergies) per the manufactures recommendation on dosing, frequency, and follow the directions completely. Call the office if any: fever (over 100.4), flu like symptoms, abdominal pain (worse than cramping), foul smelling, infected appearing vaginal discharge, or heavy bleeding. If indicated: Use condoms to prevent and STI's, and only after the bleeding has stopped completely. Advised to maintain a healthy diet and blood sugar control, rest more today and hydrate well. Return to the office in 2 weeks for results and plan of care. This note is constructed using voice recognition software. While every effort has been made to ensure accuracy, waxer tender errors may have been included. 78011-Sevxwmyzpft Biopsy Assessment & Plan Assessment & Plan (1) Endometrial thickening on ultrasound: Code(s): R93.89 - Abnormal findings on diagnostic imaging of other specified body structures Plan See procedure notes. This note is constructed using voice recognition software. While every effort has been made to ensure accuracy, waxer tender errors may have been included. Orders: Orders Surgical Today N95.0 - Postmenopausal bleeding Coding Level of Care Code Procedure Only Diagnoses Endometrial thickening on ultrasound R93.89 CPT Codes Endometrial Biopsy - CPT: 16244-Zdinfwrhovp Biopsy ([id number])
[2023-06-12 11:43] VITALS: BP 104/60; PULSE 72
[2023-06-12 11:44] VITALS: BP 110/64; BP 116/70; PULSE 75; PULSE 84
== END 2023-06-12 11:48 | disposition home or self-care (01) ==
PROVIDERS: PCP Internal Medicine; Visit Provider Advanced Practice Midwife
DX: R93.89 Abnormal findings on diagnostic imaging of other specified body structures (principal)
CPT/HCPCS: 58100

== ENCOUNTER 2023-06-24 08:23 | Outpatient (AMB) | payer OTHER, SELFPAY ==
[2023-06-24 08:31] VITALS: BP 120/68; PULSE 85; O2SAT 98; BMI 27.8
--- NOTE | 2023-06-24 08:31 | A.OFFVIS_ITS ---
Vital Signs 06/24/23 08:31 Height 5 ft 2 in Weight 152 lb 1.903 oz BMI 27.8 BP 120/68 Blood Pressure Location Lt brachial Position Sitting Pulse 85 Pulse Source Pulse Oximeter Pulse Oximetry (%) 98 Oxygen Delivery Method Room Air Intake Visit Reasons: NPV/ [place]/ Syncope Allergies Seasonal Allergies Allergy (Mild, Verified 06/12/23 11:02) runny nose/itchy eyes Medication List - Last Reconciled 06/24/23 by Justino Pavon MD atorvastatin 40 mg PO BEDTIME 90 days blood sugar diagnostic (FreeStyle Lite Strips) Use 1 test strip once a day blood-glucose meter (FreeStyle Lite Meter kit) As directed celecoxib (Celebrex) 200 mg PO DAILY cetirizine 10 mg PO DAILY cholecalciferol (vitamin D3) 25 mcg PO DAILY 90 days cromolyn 4% 1 drp ophthalmic (eye) QID epinephrine 0.3 mg IM DIRECTED fluticasone propionate 50 mcg/actuation 1 spray intranasal DAILY gabapentin 100 - 300 mg (1 - 3 x 100 mg) PO BEDTIME 30 days ketotifen fumarate 0.025%(0.035%) drps ophthalmic (eye) lancets (FreeStyle Lancets) Use 1 lancet once a day lisinopril 5 mg PO DAILY 90 days metformin 500 mg PO BID 90 days triamcinolone acetonide 0.1% 1 appl topical BID HPI Comments Details: Jenelle is here for consultation regarding syncope. She states that few weeks back, she had abdominal pain and some nausea. In that setting semi it seems that she had a syncopal episode. She was seen in the emergency room and thought to have had gastritis. Has not had any recurrence of symptoms. Based on the description, suggestive of vasovagal episode. Otherwise, no cardiac history in the past. No coronary disease or myocardial infarction or cardiomyopathy. [facility] Medical History (Updated 06/05/23 @ 10:49 by Francesca Vides CNM) Fibroid Diabetes History of gestational diabetes Pancreatitis Colon cancer screening Physical exam Peroneal neuropathy Dyslipidemia Impaired glucose tolerance Hypovitaminosis D Seasonal allergies Uterine fibroid HTN (hypertension) Surgical History History of cholecystectomy History of myomectomy Hx of tubal ligation Hx of section Family History Mother HTN (hypertension) Asthma Arthritis Paternal Aunt HTN (hypertension) Diabetes mellitus Breast cancer Maternal Grandfather Diabetes mellitus Prostate cancer Stomach cancer Paternal Grandfather Diabetes mellitus HTN (hypertension) Father HTN (hypertension) Substance use disorder Social History Housing: House Alcohol intake: never Patient Tobacco Use Status: Never used Tobacco e-Cigarette/Vaping Use: Never Used Second Hand Smoke Exposure: No service: No Current occupational status: employed Current occupational exposures/hazards: No Gender identity: Female Cognitive needs: No Hearing needs: No Vision needs: No Female Reproductive History Menstrual Age of Menarche: 15 Date of menopause: 01/19/20 Review of Systems Const Denies weakness ENT Denies dizziness Card Denies chest pain, Denies chest pain with activity, Denies syncope, Denies rapid heart rate, Denies pedal edema, Denies edema, Denies leg edema, Denies lightheadedness, Denies palpitations, Denies dyspnea, Denies dyspnea on exertion and Denies orthopnea Resp Denies cough, Denies dyspnea and Denies dyspnea on exertion GI Denies hematochezia and Denies change in stool character Musc Denies abnormal gait, Denies muscle cramps, Denies muscle weakness, Denies numbness, Denies radiating pain into limb and Denies tingling Neuro Denies abnormal gait, Denies dizziness, Denies syncope, Denies numbness, Denies tingling and Denies weakness Endo Denies palpitations Physical Exam Vital Signs: Last Vital Signs Pulse 85 06/24/23 08:31 BP 120/68 06/24/23 08:31 Pulse Ox 98 06/24/23 08:31 Oxygen Delivery Method Room Air 06/24/23 08:31 BMI result Body Mass Index 27.8 Const General: comfortable and no acute distress Orientation/consciousness: patient oriented x3 HEENT Other: Unremarkable Head: Yes normal to inspection Neck Neck: Yes normal visual inspection Chest Chest palpation & inspection: normal inspection of the chest Resp Auscultation: clear to auscultation bilaterally Cardio Palpation: normal PMI Heart sounds: S1 normal heart sound present, S2 normal heart sound present, no gallops, no murmurs and no rubs GI Palpation (GI): Soft to palpation Back/Spine/Pelvis Other: unremarkable Skin General skin exam: no rashes or lesions noted Neuro General: patient oriented x3 Extrem General: Yes normal to inspection Psych Mental Status: mental status grossly normal Assessment & Plan Assessment & Plan (1) Syncope: Code(s): R55 - Syncope and collapse Category: Medical Plan EKG with sinus rhythm at 71/Min; no significant ST-T changes and otherwise unremarkable. Normal KS and corrected QT. Echocardiogram with normal LVEF, 60-65%; normal diastolic filling and otherwise unremarkable. Overall, syncope in the setting of GI illness. Probably vasovagal syncope. Isolated episode and no recurrences. No specific management. Reassurance only. Coding Level of Care Code New Pt Level 3 (40400) Diagnoses Syncope R55
== END 2023-06-24 08:45 | disposition home or self-care (01) ==
PROVIDERS: PCP Internal Medicine; Visit Provider Internal Medicine
DX: R55 Syncope and collapse (principal)
CPT/HCPCS: 99203

== ENCOUNTER → 2023-06-24 08:23 | Outpatient (BNVA) | payer OTHER, SELFPAY | PROVIDERS: PCP Internal Medicine; Visit Provider Internal Medicine | DX: R55 Syncope and collapse (principal) | CPT/HCPCS: 99202 ==

== ENCOUNTER 2023-07-02 07:52 | Outpatient (AMB) | payer OTHER, SELFPAY ==
[2023-07-02 08:01] VITALS: BP 104/64; BMI 25.8
--- NOTE | 2023-07-02 08:01 | MHC.OFFVIS ---
Vital Signs 07/02/23 08:01 Height 5 ft 2 in Weight 141 lb BMI 25.8 BP 104/64 Blood Pressure Location Rt brachial Intake Visit Reasons: EMB Results Director Of Staff Development Required: No Director Of Rehabilitation: Director Of Rehabilitation Present Allergies Seasonal Allergies Allergy (Mild, Verified 07/02/23 08:02) runny nose/itchy eyes Medication List - Last Reconciled 07/02/23 by Evy Gomes LPN atorvastatin 40 mg PO BEDTIME 90 days blood sugar diagnostic (FreeStyle Lite Strips) Use 1 test strip once a day blood-glucose meter (FreeStyle Lite Meter kit) As directed celecoxib (Celebrex) 200 mg PO DAILY cetirizine 10 mg PO DAILY cholecalciferol (vitamin D3) 25 mcg PO DAILY 90 days cromolyn 4% 1 drp ophthalmic (eye) QID epinephrine 0.3 mg IM DIRECTED fluticasone propionate 50 mcg/actuation 1 spray intranasal DAILY gabapentin 100 - 300 mg (1 - 3 x 100 mg) PO BEDTIME 30 days ketotifen fumarate 0.025%(0.035%) drps ophthalmic (eye) lancets (FreeStyle Lancets) Use 1 lancet once a day lisinopril 5 mg PO DAILY 90 days metformin 500 mg PO BID 90 days triamcinolone acetonide 0.1% 1 appl topical BID Is last menstrual period known: No Post menopausal: Yes Patient : No Do you need a note to return to daycare/school/sports/work: No HPI Comments Details: Patient is here for a follow up for her endometrial biopsy results. She has a history of fibroids follow up ultrasound indicated an endometrial stripe of 0.6 mm, no history of postmenopausal bleeding. She reports she has been postmenopausal for 2 years. [facility] Medical History (Updated 06/05/23 @ 10:49 by Francesca Vides CNM) Fibroid Diabetes History of gestational diabetes Pancreatitis Colon cancer screening Physical exam Peroneal neuropathy Dyslipidemia Impaired glucose tolerance Hypovitaminosis D Seasonal allergies Uterine fibroid HTN (hypertension) Surgical History History of cholecystectomy History of myomectomy Hx of tubal ligation Hx of section Family History Mother HTN (hypertension) Asthma Arthritis Paternal Aunt HTN (hypertension) Diabetes mellitus Breast cancer Maternal Grandfather Diabetes mellitus Prostate cancer Stomach cancer Paternal Grandfather Diabetes mellitus HTN (hypertension) Father HTN (hypertension) Substance use disorder Social History Housing: House Alcohol intake: never Patient Tobacco Use Status: Never used Tobacco e-Cigarette/Vaping Use: Never Used Second Hand Smoke Exposure: No service: No Current occupational status: employed Current occupational exposures/hazards: No Gender identity: Female Cognitive needs: No Hearing needs: No Vision needs: No Female Reproductive History Menstrual Age of Menarche: 15 Date of menopause: 01/19/20 Review of Systems Const All systems reviewed & are unremarkable except as noted in HPI and below Endo Reports no additional complaints Physical Exam Vital Signs: BMI result Body Mass Index 25.8 Const General: cooperative, healthy appearing and no acute distress Psych Appearance: well kempt Attitude: cooperative Thought process: Normal thought process present Results Reviewed Results Reviewed: Surgical Pathology [id number] Name: Jenelle Anglin I Age/Sex: 53/F Attending: Francesca Vides CNM : 1970 Submitted by: Francesca Vides CNM Copies to: Ariana Arias MD MR #: [id number] Status: DEP REF Collected: 06/12/23 Location: [facility] Received: 06/15/23 Diagnosis Endometrium, biopsy: Strips of inactive endometrium; negative for atypia, hyperplasia or malignancy. Clinical History PMB Microscopic Description Microscopic sections reviewed. Material Received EMB Gross Description Received in formalin labeled ?EMB? is a 0.8 x 0.6 x 0.1 cm aggregate of predominantly mucus and blood and multiple shards of gonzalez, red-maroon tissue, submitted in toto in a cassette labeled A. CEDS Copies To Francesca Vides CNM [address] [place] [address] [address] [place] [address] Ariana Arias [address] [place] [address] NOTE: Unless otherwise stated, all tissue is formalin-fixed and paraffin-embedded. Some or all of the immunohistochemical tests reported herein may have been developed and their performance characteristics determined by [facility]. They have not been cleared or approved by the U.S. Food and Drug Administration (FDA). However, the FDA has determined that such clearance or approval is not necessary. This laboratory is certified under the Clinical Laboratory Improvement Amendments of 1988 (CLIA) as qualified to perform high complexity clinical laboratory testing. Electronically Signed By: Brittney Samuels MD 06/16/23 9721 Patient: Jenelle Anglin I Age/Sex: 53/F MR#: [id number] Page 1 of 1 Assessment & Plan Assessment & Plan (1) Fibroid: Code(s): D21.9 - Benign neoplasm of connective and other soft tissue, unspecified Category: Medical (2) Encounter to discuss test results: Code(s): Z71.2 - Person consulting for explanation of examination or test findings (3) Uterine fibroid: Code(s): D25.9 - Leiomyoma of uterus, unspecified (4) Thickened endometrium: Code(s): R93.89 - Abnormal findings on diagnostic imaging of other specified body structures Plan Discussed: Endometrial biopsy is negative, inactive. Reviewed ultrasound with comparison from 2019, plan short interval follow-up 6 months for uterine fibroids stability. Counseled re: Leiomyoma: common pelvic neoplasm. Differential diagnosis-may include leiomyosarcoma which is a rare uterine sarcoma 3-7/100,000, difficult to distinguish from fibroids on ultrasound from uterine sarcoma's. Unlikely any single test will have a highly positive predictive value. Hysterectomy is not recommended for sole purpose of excluding malignant neoplasm. Report any PMB, pelvic pressure, bloating, or pain. Consult for surgical exploration verses expectant management offered. Patient prefers expectant management. Expectant management follow up in 6 months, then yearly for stability. Referral to MD if indicated for level of care. Ultrasound ordered for October 2023, with follow up in office to discuss test results. All of her questions and concerns were addressed to the best of my ability and shared decision making. She is agreeable to the plan of care. This note is constructed using voice recognition software. While every effort has been made to ensure accuracy, call or contact centre manager errors may have been included. Orders: Orders US pelvic and transvaginal 10/19/23 D21.9 - Benign neoplasm of connective and other soft tissue, unspecified Coding Level of Care Code Est Pt Level 3 (67614) Diagnoses Fibroid D21.9 Encounter to discuss test results Z71.2 Uterine fibroid D25.9 Thickened endometrium R93.89
== END 2023-07-02 08:22 | disposition home or self-care (01) ==
PROVIDERS: PCP Internal Medicine; Visit Provider Advanced Practice Midwife
DX: D25.9 Leiomyoma of uterus, unspecified (principal); R93.89 Abnormal findings on diagnostic imaging of other specified body structures; Z71.2 Person consulting for explanation of examination or test findings
CPT/HCPCS: 99213

== ENCOUNTER → 2023-07-02 07:52 | Outpatient (BNVA) | payer OTHER, SELFPAY | PROVIDERS: PCP Internal Medicine; Visit Provider Advanced Practice Midwife | DX: Z71.2 Person consulting for explanation of examination or test findings (principal); D21.9 Benign neoplasm of connective and other soft tissue, unspecified; R93.89 Abnormal findings on diagnostic imaging of other specified body structures | CPT/HCPCS: 99212 ==

== ENCOUNTER 2023-08-12 09:18 | Outpatient (AMB) | payer OTHER, SELFPAY ==
--- NOTE | 2023-08-12 09:21 | MHC.OFFVIS ---
Vital Signs 08/12/23 09:27 Height 5 ft 2 in Weight 156 lb 2 oz BMI 28.6 BP 115/64 Blood Pressure Location Rt brachial Position Sitting Pulse 77 Pulse Source Pulse Oximeter Pulse Oximetry (%) 98 Oxygen Delivery Method Room Air Intake Visit Reasons: 7 mo f/u - Neuropathy-CONF Intake Note: Patient presents for 7 months f/u. At night both feet feel very cold and tingling Allergies Seasonal Allergies Allergy (Mild, Verified 08/12/23 09:25) runny nose/itchy eyes Medication List - Last Reconciled 08/12/23 by OLIVA Rene atorvastatin 40 mg PO BEDTIME 90 days blood sugar diagnostic (FreeStyle Lite Strips) Use 1 test strip once a day blood-glucose meter (FreeStyle Lite Meter kit) As directed celecoxib (Celebrex) 200 mg PO DAILY cetirizine 10 mg PO DAILY cholecalciferol (vitamin D3) 25 mcg PO DAILY 90 days cromolyn 4% 1 drp ophthalmic (eye) QID epinephrine 0.3 mg IM DIRECTED fluticasone propionate 50 mcg/actuation 1 spray intranasal DAILY gabapentin 100 - 300 mg (1 - 3 x 100 mg) PO BEDTIME 30 days ketotifen fumarate 0.025%(0.035%) drps ophthalmic (eye) lancets (FreeStyle Lancets) Use 1 lancet once a day lisinopril 5 mg PO DAILY 90 days metformin 500 mg PO BID 90 days triamcinolone acetonide 0.1% 1 appl topical BID HPI Comments Details: 53-yr-old female presents for f/u visit. Pt endorses the following interval medical history changes: Pt states in April, she had a syncopal event which was thought to be vasovagal syncope d/t abd pain d/t acute gastritis. Pt states she had not eaten, taken, or done anything different the day of or before. She has no h/o syncope before or after. She has no h/o seizure. She states she woke up had felt nausea and abd pain, tried to jarvis the bathroom, could not have BM. Walked back from her bathroom to bedroom, and next thing she knew she was on the ground. She denies interictal tongue biting or incontinence. She was confused upon arousal, and just wanted to sleep afterwards. She was seen in the [facility] ER- tx'd for gastroenteritis. States her GI s/s started to improve after 2-3 days. Had f/u cardiology eval- likely vasovgala syncope. Has not had EEG. Has an aunt who has vasovagal syncope s/s. EKG with sinus rhythm at 71/Min; no significant ST-T changes and otherwise unremarkable. Normal ID and corrected QT. Echocardiogram with normal LVEF, 60-65%; normal diastolic filling and otherwise unremarkable. Her BLE neuropathic pain had been stable, but then she ran out of her gabapentin for a couple of weeks as her pharmacy did not refill her Gabapentin. States while off gabapentin she felt internal clness and tingling in bilateral feet. She resumed Germaine last night- took 300mg, and her feet felt better and she slept better. She denies BLE weakness, swelling, skin color changes. [facility] Medical History (Updated 06/05/23 @ 10:49 by Francesca Vides CNM) Fibroid Diabetes History of gestational diabetes Pancreatitis Colon cancer screening Physical exam Peroneal neuropathy Dyslipidemia Impaired glucose tolerance Hypovitaminosis D Seasonal allergies Uterine fibroid HTN (hypertension) Surgical History History of cholecystectomy History of myomectomy Hx of tubal ligation Hx of section Family History Mother HTN (hypertension) Asthma Arthritis Paternal Aunt HTN (hypertension) Diabetes mellitus Breast cancer Maternal Grandfather Diabetes mellitus Prostate cancer Stomach cancer Paternal Grandfather Diabetes mellitus HTN (hypertension) Father HTN (hypertension) Substance use disorder Social History Housing: House Alcohol intake: never Patient Tobacco Use Status: Never used Tobacco e-Cigarette/Vaping Use: Never Used Second Hand Smoke Exposure: No service: No Current occupational status: employed Current occupational exposures/hazards: No Gender identity: Female Cognitive needs: No Hearing needs: No Vision needs: No Female Reproductive History Menstrual Age of Menarche: 15 Date of menopause: 01/19/20 Review of Systems Const All systems reviewed & are unremarkable except as noted in HPI and below Physical Exam Vital Signs: Last Vital Signs Pulse 77 08/12/23 09:27 BP 115/64 08/12/23 09:27 Pulse Ox 98 08/12/23 09:27 Oxygen Delivery Method Room Air 08/12/23 09:27 BMI result Body Mass Index 28.6 Const General: cooperative and no acute distress Orientation/consciousness: patient oriented x3 HEENT Head: Yes normocephalic Resp Effort & Inspection: normal respiratory effort and able to speak in complete sentences Neuro General: patient oriented x3, gait normal and CN's II-XI intact bilaterally Cognition (Neuro): normal cognition Motor exam (neuro): 5/5 motor strength present throughout Psych Appearance: grossly normal Mental Status: mental status grossly normal Speech and movement: Normal speech and movement present Affect: normal affect Attitude: cooperative Thought process: Normal thought process present Thought content: Normal thought content present Insight: Good insight present (Psych) Judgement: Good judgement present (Psych) Assessment & Plan Assessment & Plan (1) Paresthesias: Code(s): R20.2 - Paresthesia of skin Category: Medical (2) Syncope: Code(s): R55 - Syncope and collapse Category: Medical Plan For syncope- Concur that episode was likely vasovagal syncope. Will obtain baseline EEG to complete work-up. LLE EMG/NCS- normal. Continue home PT exercises. Continue Gabapentin 100-200mg qhs, may take up to 300mg qhs prn. f/u in 6 months or sooner prn new/worsening s/s. Orders: Orders EEG electroencephalogram Today R55 - Syncope and collapse Coding Level of Care Code Est Pt Level 4 (94721) Diagnoses Paresthesias R20.2 Syncope R55
[2023-08-12 09:27] VITALS: BP 115/64; PULSE 77; O2SAT 98; BMI 28.6
== END 2023-08-12 09:52 | disposition home or self-care (01) ==
PROVIDERS: PCP Internal Medicine; Visit Provider Nurse Practitioner Family
DX: R20.2 Paresthesia of skin (principal); R55 Syncope and collapse
CPT/HCPCS: 99214

== ENCOUNTER → 2023-08-12 09:18 | Outpatient (BNVA) | payer OTHER, SELFPAY | PROVIDERS: PCP Internal Medicine; Visit Provider Nurse Practitioner Family | DX: R20.2 Paresthesia of skin (principal); R55 Syncope and collapse | CPT/HCPCS: 99212 ==

== ENCOUNTER 2023-09-17 08:03 | Outpatient (AMB) | payer OTHER, SELFPAY ==
[2023-09-17 08:09] VITALS: BP 120/70; BMI 27.8
--- NOTE | 2023-09-17 08:09 | A.OFFPC_ITS ---
Vital Signs 09/17/23 08:09 Height 5 ft 2 in Weight 152 lb BMI 27.8 BP 120/70 Blood Pressure Location Lt brachial Position Sitting Intake Visit Reasons: dm Intake Note: Patient here for a follow up DM Script Worker Required: No Accompanied by: Self / Same As Patient Allergies Seasonal Allergies Allergy (Mild, Verified 09/17/23 08:22) runny nose/itchy eyes Medication List - Last Reconciled 09/17/23 by Ariana De Anda MD atorvastatin 40 mg PO BEDTIME 90 days blood sugar diagnostic (FreeStyle Lite Strips) Use 1 test strip once a day blood-glucose meter (FreeStyle Lite Meter kit) As directed celecoxib (Celebrex) 200 mg PO DAILY cetirizine 10 mg PO DAILY cholecalciferol (vitamin D3) 25 mcg PO DAILY 90 days cromolyn 4% 1 drp ophthalmic (eye) QID epinephrine 0.3 mg IM DIRECTED fluticasone propionate 50 mcg/actuation 1 spray intranasal DAILY gabapentin 100 - 300 mg (1 - 3 x 100 mg) PO BEDTIME 90 days ketotifen fumarate 0.025%(0.035%) drps ophthalmic (eye) lancets (FreeStyle Lancets) Use 1 lancet once a day lisinopril 5 mg PO DAILY 90 days metformin 500 mg PO BID 90 days triamcinolone acetonide 0.1% 1 appl topical BID Tobacco use date assessed: 04/08/23 Dental Screening Dental Screen Date: 05/07/23 HPI HPI Comments History of Present Illness Details This is a 53-year-old female with diabetes mellitus type 2, hypertension, hyperlipidemia and chronic GERD that complains of heartburn associated with occasional vomiting with certain types of food. She has been changing her diet and I will start her on omeprazole which she has use in the past with great success. Her A1c is within goal. Blood pressure stable. Last LDL was within goal. No chest pain or shortness on breath. [facility] Medical History (Updated 09/17/23 @ 08:26 by Ariana De Anda MD) Fibroid Diabetes History of gestational diabetes Pancreatitis Colon cancer screening Physical exam Peroneal neuropathy Dyslipidemia Impaired glucose tolerance Hypovitaminosis D Seasonal allergies Uterine fibroid HTN (hypertension) Surgical History History of cholecystectomy History of myomectomy Hx of tubal ligation Hx of section Family History Mother HTN (hypertension) Asthma Arthritis Paternal Aunt HTN (hypertension) Diabetes mellitus Breast cancer Maternal Grandfather Diabetes mellitus Prostate cancer Stomach cancer Paternal Grandfather Diabetes mellitus HTN (hypertension) Father HTN (hypertension) Substance use disorder Social History Housing: House Alcohol intake: never Patient Tobacco Use Status: Never used Tobacco e-Cigarette/Vaping Use: Never Used Second Hand Smoke Exposure: No service: No Current occupational status: employed Current occupational exposures/hazards: No Gender identity: Female Cognitive needs: No Hearing needs: No Vision needs: No Female Reproductive History Menstrual Age of Menarche: 15 Date of menopause: 01/19/20 Questionnaire Thrive Questionnaire Date Thrive assessed: 04/08/23 BRANDY-7 AMB Questionnaire BRANDY-7 Date BRANDY - 7 assessed: 04/08/23 Source: Developed by Drs. Turner Craft, Brandi Herman, Kushal Vergara and colleagues, with an educational sami from [employer]. Review of Systems Const All systems reviewed & are unremarkable except as noted in HPI and below Card Denies chest pain at rest, Denies chest pain with activity, Denies edema, Denies irregular heart rhythm, Denies claudication, Denies dyspnea, Denies dyspnea on exertion, Denies orthopnea, Denies paroxysmal nocturnal dyspnea and Denies slow heart rate Resp Denies cough, Denies dyspnea and Denies dyspnea on exertion GI Denies abdominal pain, Denies change in bowel habits, Denies excessive flatus, Denies nausea and Denies vomiting Denies urinary incontinence, Denies urinary hesitancy and Denies urinary urgency Physical exam (Primary Care) Vital Signs: Last Vital Signs BP 120/70 09/17/23 08:09 BMI result Body Mass Index 27.8 Tobacco/Smoking Status: Tobacco use Status Tobacco use date assessed 04/08/23 09/17/23 08:13 Patient Tobacco Use Status Never used Tobacco 09/17/23 08:13 e-Cigarette/Vaping Use Never Used 09/17/23 08:13 Thrive Assessment: Date of Thrive Assessment Date Thrive assessed 04/08/23 09/17/23 08:13 Resp Effort & Inspection: normal respiratory effort Auscultation: clear to auscultation bilaterally Cardio Jugular venous distension: no JVD Rate: regular rate Rhythm: regular rhythm Heart sounds: S1 normal heart sound present and S2 normal heart sound present Extrem General: Yes full ROM Results AMB Hemoglobin A1c AMB Hemoglobin A1c 5.5 % Last Edit by ZEKE Goetz on 09/17/23 08:1 7 Results Reviewed Results Reviewed: Laboratory Last Values Hgb A1c (Clinic) 5.5 % (4.0-6.0) 09/17/23 08:07 Assessment and Plan Assessment & Plan (1) Diabetes mellitus: Code(s): E11.9 - Type 2 diabetes mellitus without complications Qualifiers: Diabetes mellitus type: type 2 Diabetes mellitus prison insulin use: without dedicated intermodal truck driver use Diabetes mellitus complication status: without complication Qualified Code(s): E11.9 - Type 2 diabetes mellitus without complications Plan: Continue metformin. A1c goal is equal or less than 7%. (2) Hyperlipidemia LDL goal <70: Code(s): E78.5 - Hyperlipidemia, unspecified Plan: Continue statins. LDL goal is less than 70. (3) Chronic GERD: Code(s): K21.9 - Gastro-esophageal reflux disease without esophagitis Plan: Continue PPIs. (4) HTN (hypertension): Code(s): I10 - Essential (primary) hypertension Qualifiers: Hypertension type: essential hypertension Qualified Code(s): I10 - Essential (primary) hypertension Plan: Continue lisinopril. Blood pressure goal is equal or less than 130/80 Orders: Orders AMB Hemoglobin A1c Today E11.9 - Type 2 diabetes mellitus without complications Lipid Panel 4 Months E78.5 - Hyperlipidemia, unspecified Microalbumin, Random (w Creat) 4 Months E11.9 - Type 2 diabetes mellitus without complications Vitamin D 25-OH Total 4 Months E55.9 - Vitamin D deficiency, unspecified Comprehensive Maiden. Panel Fast 4 Months E11.9 - Type 2 diabetes mellitus without complications Medications: New omeprazole 20 mg PO DAILY 90 days 90 caps 1RF K21.9 - Gastro-esophageal reflux disease without esophagitis Coding Level of Care Code Est Pt Level 4 (52807) Complex EM visit Add On G2211 Diagnoses Type 2 diabetes mellitus without complication, without long-term current use of insulin E11.9 Diabetes mellitus type: type 2 Diabetes mellitus prison insulin use: without dedicated intermodal truck driver use Diabetes mellitus complication status: without complication Hyperlipidemia LDL goal <70 E78.5 Chronic GERD K21.9 Essential hypertension I10 Hypertension type: essential hypertension Time Spent (min) 22
== END 2023-09-17 08:31 | disposition home or self-care (01) ==
PROVIDERS: PCP Internal Medicine; Visit Provider Internal Medicine
DX: E11.9 Type 2 diabetes mellitus without complications (principal); E78.5 Hyperlipidemia, unspecified; K21.9 Gastro-esophageal reflux disease without esophagitis; I10 Essential (primary) hypertension
CPT/HCPCS: 83036; 99214; G2211

== ENCOUNTER 2023-09-18 07:55 | Outpatient (REF) | payer OTHER, SELFPAY ==
--- NOTE | 2023-09-18 07:57 | EEG_ITS ---
This is a 16-channel EEG with an EKG lead. The patient is reported awake during the tracing. Background EEG rhythm is about 10 hertz, 5 to 70 microvolt posteriorly and lower amplitude fast anteriorly. Photic stimulation and hyperventilation does not produce any significant abnormality. Cardiac lead does not reveal any significant abnormality. No sharp wave spikes or paroxysmal tendency noted. IMPRESSION: Unremarkable EEG. MD TERELL Powers/VIJI / [id number]
== END 2023-09-18 07:56 | disposition home or self-care (01) ==
LOC: HO.NEURO 07:55
PROVIDERS: PCP Internal Medicine; Visit Provider Nurse Practitioner Family
DX: R55 Syncope and collapse (principal)
CPT/HCPCS: 95816

== ENCOUNTER 2023-10-26 10:41 | Outpatient (REF) | payer OTHER, SELFPAY ==
--- NOTE | ~2023-10-26 | US_ITS ---
EXAMINATION: US PELVIS, TRANSABDOMINAL AND TRANSVAGINAL CLINICAL INFORMATION: Follow-up fibroids. COMPARISON: 05/01/2023 TECHNIQUE: Ultrasound of the pelvis is performed using both transabdominal and transvaginal transducers along with Doppler. Transvaginal imaging is performed due to inadequate visualization transabdominally. FINDINGS: UTERUS: The uterus is anteverted and measures 8.3 x 3.1 x 3.7 cm. At the time of the prior study, 2 fibroids were visualized. The double wall endometrial thickness is 1 mm. Previously this measured 6 mm. The uterus is smooth in contour and has normal myometrial echogenicity. A single submucosal fibroid is seen measuring 1.6 x 1.6 x 1.4 cm (previously 2.0 x 2.0 x 2.3 cm. Nabothian cysts are seen in the cervix. ADNEXA: Both ovaries are visualized. There is normal color flow to the adnexa. There is no ovarian torsion. There is no pelvic ascites or fluid collection. Right ovary measures 1.3 x 1.3 x 1.6 cm for a volume of 1.4 mL and appears normal. Left ovary measures 1.8 x 0.9 x 1.6 cm for a volume of 1.4 mL and appears normal. US/US pelvic and transvaginal IMPRESSION: Submucosal fibroid has decreased in size. Electronically signed by: Zak Smith MD 10/28/2023 05:04 PM EDT
== END 2023-10-26 10:42 | disposition home or self-care (01) ==
LOC: HO.US 10:41
PROVIDERS: PCP Internal Medicine; Visit Provider Advanced Practice Midwife
DX: D21.9 Benign neoplasm of connective and other soft tissue, unspecified (principal)
CPT/HCPCS: 76830; 76856

== ENCOUNTER 2024-02-01 09:51 | Outpatient (REF) | payer OTHER, SELFPAY | END 2024-02-01 09:52 | disposition home or self-care (01) | LOC: HO.MAMMO 09:51 | PROVIDERS: PCP Internal Medicine; Visit Provider Internal Medicine | DX: Z12.31 Encounter for screening mammogram for malignant neoplasm of breast (principal) | CPT/HCPCS: 77063; 77067 ==

== ENCOUNTER → 2024-02-01 10:15 | Outpatient (BNV) | payer OTHER, SELFPAY | PROVIDERS: PCP Internal Medicine; Visit Provider Internal Medicine | DX: Z12.31 Encounter for screening mammogram for malignant neoplasm of breast (principal) | CPT/HCPCS: 77063; 77067 ==

== ENCOUNTER 2024-02-22 08:01 | Outpatient (REF) | payer OTHER, SELFPAY ==
[2024-02-22 09:29] LABS: Alanine Aminotransferase 20 U/L (0-31); Albumin Level 4.1 g/dL (3.5-5.0); Alkaline Phosphatase 47 U/L (39-117); Anion Gap 10 (12-20); Aspartate Amino Transferase 19 U/L (5-31); Bilirubin Total 0.5 mg/dL (0.0-1.0); Blood Urea Nitrogen 22 mg/dL (9-16); Calcium 9.1 mg/dL (8.4-10.2); Carbon Dioxide 27 mmol/L (22-29); Chloride 108 mmol/L (96-108); Cholesterol 128 mg/dL (<200); Estimated Glomerular Filt Rate > 60; Glucose Fasting 92 mg/dL (60-99); HDL Cholesterol 41 mg/dL (>40); LDL Cholesterol Calculated 71 mg/dL (<100); Potassium 4.3 mmol/L (3.3-5.1); Sodium 141 mmol/L (135-145); Total Protein 7.1 g/dL (6.5-8.0); Triglycerides 81 mg/dL (<150)
[2024-02-22 09:44] LABS: Creatinine Urine 171.89 mg/dL
[2024-02-22 09:52] LABS: Vitamin D 25-OH Total 39.5 ng/mL (>30)
== END 2024-02-22 08:02 | disposition home or self-care (01) ==
LOC: HO.LAB 08:01
PROVIDERS: PCP Internal Medicine; Visit Provider Internal Medicine
DX: Z00.00 Encounter for general adult medical examination without abnormal findings (principal); E78.5 Hyperlipidemia, unspecified; E55.9 Vitamin D deficiency, unspecified; E11.9 Type 2 diabetes mellitus without complications
CPT/HCPCS: 36415; 80053; 80061; 82043; 82306; 82570

== ENCOUNTER 2024-02-24 07:49 | Outpatient (AMB) | payer OTHER, SELFPAY ==
[2024-02-24 08:15] VITALS: BP 118/80; BMI 28.7
--- NOTE | 2024-02-24 08:15 | A.OFFPC_ITS ---
Vital Signs 02/24/24 08:15 Height 5 ft 2 in Weight 157 lb BMI 28.7 BP 118/80 Blood Pressure Location Lt brachial Position Sitting Intake Visit Reasons: dm Intake Note: Patient here for a follow up DM Sketch Artist Required: Yes Sketch Artist Language: Printed Circuit Board Panels Plater Name: Ariana De Anda MD Information Interpreted: non-clinical & clinical Accompanied by: Self / Same As Patient Allergies Seasonal Allergies Allergy (Mild, Verified 02/24/24 08:21) runny nose/itchy eyes Medication List - Last Reconciled 02/24/24 by Ariana De Anda MD atorvastatin 40 mg PO BEDTIME 90 days blood sugar diagnostic (FreeStyle Lite Strips) Use 1 test strip once a day blood-glucose meter (FreeStyle Lite Meter kit) As directed celecoxib (Celebrex) 200 mg PO DAILY cetirizine 10 mg PO DAILY cholecalciferol (vitamin D3) 25 mcg PO DAILY 90 days cromolyn 4% 1 drp ophthalmic (eye) QID epinephrine 0.3 mg IM DIRECTED fluticasone propionate 50 mcg/actuation 1 spray intranasal DAILY gabapentin 100 - 300 mg (1 - 3 x 100 mg) PO BEDTIME 90 days ketotifen fumarate 0.025%(0.035%) drps ophthalmic (eye) lancets (FreeStyle Lancets) Use 1 lancet once a day lisinopril 5 mg PO DAILY 90 days metformin 500 mg PO BID 90 days omeprazole 20 mg PO DAILY 90 days triamcinolone acetonide 0.1% 1 appl topical BID Tobacco use date assessed: 02/24/24 Dental Screening Dental Screen Date: 02/24/24 Did you have a dental visit in the last 12 months?: Yes Did you have a dental problem in the last 6 months where you did not have access to dental care?: No Was dental information given to patient?: Patient has dentist HPI HPI Comments History of Present Illness Details The patient is a 53-year-old female presenting for follow-up of Type 2 Diabetes Mellitus and other chronic conditions. Her diabetes is currently well- controlled with a recent HbA1c of 5.8%. She experiences peripheral neuropathy characterized by episodes of intense cold and hot sensations in both feet. This issue is managed with gabapentin, although there was a temporary disruption in her medication regimen due to pharmacy delays, leading to a recurrence of symptoms. She manages her blood pressure and cholesterol with lisinopril and atorvastatin respectively, and takes metformin for diabetes management. For allergic rhinitis, she uses cetirizine as needed. She also takes omeprazole for gastroesophageal reflux disease and uses celecoxib occasionally for pain. She reports previous problems with intense cold and burning sensations in her feet, for which she sees a neurologist. [facility] Medical History (Updated 09/17/23 @ 08:26 by Ariana De Anda MD) Fibroid Diabetes History of gestational diabetes Pancreatitis Colon cancer screening Physical exam Peroneal neuropathy Dyslipidemia Impaired glucose tolerance Hypovitaminosis D Seasonal allergies Uterine fibroid HTN (hypertension) Surgical History History of cholecystectomy History of myomectomy Hx of tubal ligation Hx of section Family History Mother HTN (hypertension) Asthma Arthritis Paternal Aunt HTN (hypertension) Diabetes mellitus Breast cancer Maternal Grandfather Diabetes mellitus Prostate cancer Stomach cancer Paternal Grandfather Diabetes mellitus HTN (hypertension) Father HTN (hypertension) Substance use disorder Social History Housing: House Alcohol intake: never Patient Tobacco Use Status: Never used Tobacco e-Cigarette/Vaping Use: Never Used Second Hand Smoke Exposure: No service: No Current occupational status: employed Current occupational exposures/hazards: No Gender identity: Female Cognitive needs: No Hearing needs: No Vision needs: No Female Reproductive History Menstrual Age of Menarche: 15 Date of menopause: 01/19/20 Questionnaire PHQ-9 Over the last 2 weeks, how often have you been bothered by any of the following problems? 1. Little interest or pleasure in doing things: not at all 2. Feeling down, depressed, or hopeless: not at all 3. Trouble falling or staying asleep, or sleeping too much: not at all 4. Feeling tired or having little energy: not at all 5. Poor appetite or overeating: not at all 6. Feeling bad about yourself - or that you are a failure or have let yourself or your family down: not at all 7. Trouble concentrating on things, such as reading the newspaper or watching television: not at all 8. Moving or speaking so slowly that other people could have noticed. Or the opposite - being so fidgety or restless that you have been moving around a lot more than usual: not at all 9. Thoughts that you would be better off or of hurting yourself in some way: not at all Total score: 0 Depression Screening Interpretation: Negative Depression Screening Done: Yes 64359 - PHQ-9 Billing: Yes Source: Developed by Drs. Turner Craft, Brandi Herman, Kushal Vergara and colleagues, with an educational sami from [employer] Thrive Questionnaire Date Thrive assessed: 02/24/24 I am a: Patient What is your living situation today?: I have a steady place to live Within the past 12 months, did the food you bought not last and you didn't have the money to get more?: Never true Within the past 12 months, did you worry whether your food would run out before you got money to buy more?: Never true Do you have trouble paying for medicines?: No Do you have trouble getting transportation to medical appointments?: No Do you have trouble paying your heating and electricity bill?: No Do you have trouble taking care of your child, family member or friend?: No Do you have trouble with day-to-day activities such as bathing, preparing meals, shopping, managing finances, etc.?: No Are you currently unemployed and looking for a job?: No Are you interested in more education?: No Please select the resources that you would like help with: None Currently or been in a relationship where the following occur: No concerns repor karthik THRIVE Score: 0 AUDIT C Alcohol Use Questionnaire (AUDIT-C) 1. How often do you have a drink containing alcohol?: Never Total Score: 0 BRANDY-7 AMB Questionnaire BRANDY-7 Date BRANDY - 7 assessed: 02/24/24 Feeling nervous, anxious, or on edge: 0 = Not at all Not being able to stop or control worryin = Not at all Worrying too much about different things: 0 = Not at all Trouble relaxin = Not at all Being so restless that it is hard to sit still: 0 = Not at all Becoming easily annoyed or irritable: 0 = Not at all Feeling afraid as if something awful might happen: 0 = Not at all Total BRANDY-7 score (0-4 normal; 5-9 mild; 10-14 moderate; 15-21 severe): 0 Source: Developed by Drs. Turner Craft, Brandi Herman, Kushal Vergara and colleagues, with an educational sami from [employer] Review of Systems Const All systems reviewed & are unremarkable except as noted in HPI and below Card Denies chest pain at rest, Denies chest pain with activity, Denies edema, Denies irregular heart rhythm, Denies claudication, Denies dyspnea, Denies dyspnea on exertion, Denies orthopnea, Denies paroxysmal nocturnal dyspnea and Denies slow heart rate Resp Denies cough, Denies dyspnea and Denies dyspnea on exertion GI Denies abdominal pain, Denies change in bowel habits, Denies excessive flatus, Denies nausea and Denies vomiting Denies urinary incontinence, Denies urinary hesitancy and Denies urinary urgency Physical exam (Primary Care) Vital Signs: Last Vital Signs BP 118/80 02/24/24 08:15 BMI result Body Mass Index 28.7 Tobacco/Smoking Status: Tobacco use Status Tobacco use date assessed 02/24/24 02/24/24 08:19 Patient Tobacco Use Status Never used Tobacco 02/24/24 08:19 e-Cigarette/Vaping Use Never Used 02/24/24 08:19 PHQ-9: PHQ-9 Score PHQ-9: Total score 0 02/24/24 08:24 Depression Screening Interpretation: Negative Thrive Assessment: Date of Thrive Assessment Date Thrive assessed 02/24/24 02/24/24 08:19 Currently or been in a relationship where the following occur: No concerns reported Resp Effort & Inspection: normal respiratory effort Auscultation: clear to auscultation bilaterally Cardio Jugular venous distension: no JVD Rate: regular rate Rhythm: regular rhythm Heart sounds: S1 normal heart sound present and S2 normal heart sound present Extrem General: Yes full ROM Results AMB Hemoglobin A1c AMB Hemoglobin A1c 5.8 % Last Edit by ZEKE Goetz on 02/24/24 08:3 5 Results Reviewed Results Reviewed: Laboratory Last Values Hgb A1c (Clinic) 5.8 % (4.0-6.0) 02/24/24 08:13 Coding Level of Care Code Est Pt Level 4 (33215) Complex EM visit Add On G2211 Diagnoses Chronic GERD K21.9 Type 2 diabetes mellitus without complication, without long-term current use of insulin E11.9 Diabetes mellitus type: type 2 Diabetes mellitus intermediate frame tender insulin use: without intermediate use Diabetes mellitus complication status: without complication Hyperlipidemia LDL goal <70 E78.5 Peroneal neuropathy G57.30 Essential hypertension I10 Hypertension type: essential hypertension Additional Codes PHQ-9 - 55683 - PHQ-9 Billing: Yes ([id number]) Time Spent (min) 23 Assessment & Plan Assessment & Plan (1) Chronic GERD: Code(s): K21.9 - Gastro-esophageal reflux disease without esophagitis Category: Medical (2) Diabetes mellitus: Code(s): E11.9 - Type 2 diabetes mellitus without complications Category: Medical Qualifiers: Diabetes mellitus type: type 2 Diabetes mellitus intermediate insulin use: without intermediate use Diabetes mellitus complication status: without complication Qualified Code(s): E11.9 - Type 2 diabetes mellitus without complications (3) Hyperlipidemia LDL goal <70: Code(s): E78.5 - Hyperlipidemia, unspecified Category: Medical (4) Peroneal neuropathy: Code(s): G57.30 - Lesion of lateral popliteal nerve, unspecified lower limb Category: Medical (5) HTN (hypertension): Code(s): I10 - Essential (primary) hypertension Category: Medical Qualifiers: Hypertension type: essential hypertension Qualified Code(s): I10 - Essential (primary) hypertension Plan - Continue metformin for diabetes control. - Maintain lisinopril and atorvastatin regimen for hypertension and hyperlipidemia. - Utilize gabapentin as prescribed for peripheral neuropathy management. - Continue cetirizine for allergic rhinitis as needed. - Use omeprazole for management of gastroesophageal reflux disease. - Schedule follow-up appointment with neurologist for neuropathy evaluation. - Maintain regular physical activity and dietary regimen. Patient was informed and verbally consented to the use of an ambient scribe for clinic note documentation during this visit. During our visit, we reviewed the management strategies for her chronic conditions, particularly focusing on the effective control of her diabetes with a current HbA1c of 5.8%. I discussed the importance of continuing her current medication regimen for hypertension and hyperlipidemia, as well as adhering to treatment for allergic rhinitis and gastroesophageal reflux disease. We addressed the recurrence of neuropathy symptoms due to a temporary discontinuation of gabapentin, emphasizing the need for consistent medication adherence. We also talked about her next steps in consultation with her neurologist to further evaluate her neuropathy symptoms. No immediate changes were made to her current treatment plan as her overall status is stable. Orders: Orders AMB Hemoglobin A1c Today E11.9 - Type 2 diabetes mellitus without complications Medications: Refilled cholecalciferol (vitamin D3) 25 mcg PO DAILY 90 days 90 caps 1RF E55.9 - Vitamin D deficiency, unspecified Patient Instructions: - Continue current medication regimen as prescribed. - Adhere to regular check-ups with your neurologist. - Maintain an active lifestyle and balanced diet. - Use cetirizine and omeprazole as needed for symptom management. - Monitor blood pressure and blood sugar levels regularly.
== END 2024-02-24 08:30 | disposition home or self-care (01) ==
PROVIDERS: PCP Internal Medicine; Visit Provider Internal Medicine
DX: K21.9 Gastro-esophageal reflux disease without esophagitis (principal); E11.9 Type 2 diabetes mellitus without complications; E78.5 Hyperlipidemia, unspecified; G57.30 Lesion of lateral popliteal nerve, unspecified lower limb; I10 Essential (primary) hypertension

== ENCOUNTER → 2024-02-24 07:49 | Outpatient (BNVA) | payer OTHER, SELFPAY | PROVIDERS: PCP Internal Medicine; Visit Provider Internal Medicine | DX: E11.9 Type 2 diabetes mellitus without complications (principal); J30.9 Allergic rhinitis, unspecified; K21.9 Gastro-esophageal reflux disease without esophagitis; E78.5 Hyperlipidemia, unspecified; G57.30 Lesion of lateral popliteal nerve, unspecified lower limb; I10 Essential (primary) hypertension; E55.9 Vitamin D deficiency, unspecified; Z79.899 Other long term (current) drug therapy | CPT/HCPCS: 83036; 96127; 99212 ==

== ENCOUNTER 2024-03-06 09:26 | Emergency (ER) | payer OTHER, SELFPAY ==
[2024-03-06 09:39] VITALS: BP 131/88; PULSE 75; RESP 16; TEMP 36.2; O2SAT 98; BMI 28.4
== END 2024-03-06 12:57 | disposition left against medical advice (07) ==
PROVIDERS: Emergency Provider Emergency Medicine; PCP Internal Medicine
DX: K13.79 Other lesions of oral mucosa (principal); K12.1 Other forms of stomatitis
CPT/HCPCS: 99281

== ENCOUNTER 2024-03-11 10:47 | Outpatient (AMB) | payer OTHER, SELFPAY ==
--- NOTE | 2024-03-11 10:48 | MHC.OFFVIS ---
Vital Signs 03/11/24 10:53 Height 5 ft 2 in Weight 158 lb BMI 28.9 BP 116/80 Blood Pressure Location Lt brachial Position Sitting Pulse 77 Pulse Source Pulse Oximeter Pulse Oximetry (%) 98 Oxygen Delivery Method Room Air Intake Visit Reasons: 6 Month F/U Intake Note: Patient presents for follow up paresthesia, EEG in chart, on top of both feet get a cold or hot sensation Allergies Seasonal Allergies Allergy (Mild, Verified 03/11/24 10:57) runny nose/itchy eyes Medication List - Last Reconciled 03/11/24 by OLIVA Rene atorvastatin 40 mg PO BEDTIME 90 days blood sugar diagnostic (FreeStyle Lite Strips) Use 1 test strip once a day blood-glucose meter (FreeStyle Lite Meter kit) As directed celecoxib (Celebrex) 200 mg PO DAILY cetirizine 10 mg PO DAILY cholecalciferol (vitamin D3) 25 mcg PO DAILY 90 days cromolyn 4% 1 drp ophthalmic (eye) QID epinephrine 0.3 mg IM DIRECTED fluticasone propionate 50 mcg/actuation 1 spray intranasal DAILY gabapentin 100 - 300 mg (1 - 3 x 100 mg) PO BEDTIME 90 days ketotifen fumarate 0.025%(0.035%) drps ophthalmic (eye) lancets (FreeStyle Lancets) Use 1 lancet once a day lisinopril 5 mg PO DAILY 90 days metformin 500 mg PO BID 90 days omeprazole 20 mg PO DAILY 90 days triamcinolone acetonide 0.1% 1 appl topical BID valacyclovir 2,000 mg (2 x 1 gram) PO Q12H 1 day HPI Comments Details: 54-yr-old female presents for f/u visit for bilateral lower extremity paresthesias. Patient denies any significant interval medical history changes. 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 She states her last HSV outbreak was 4 years ago- typically only has an outbreak when she is very sick. She states her pharmacist advised her to speak to her HCP about trying an oral treatment- she has never tried valacyclovir before. EEG was normal. No further syncopal episodes. Pt reports a new symptom of bilateral dorsal forefoot/toe painful coldness, starting in the afternoon. This started 2 weeks ago. She has to wear 2 pairs of socks. Her usual BLE paresthesias are well-controlled on the Gabapentin. This new pain is different from that pain. Denies preceding accidents, change in her footwear, dietray changes. Denies skin color changes, swelling, upper leg pain. Recent HgA1C was 5.2%. Last HPI from 08/12/2023: Pt endorses the following interval medical history changes: Pt states in April, she had a syncopal event which was thought to be vasovagal syncope d/t abd pain d/t acute gastritis. Pt states she had not eaten, taken, or done anything different the day of or before. She has no h/o syncope before or after. She has no h/o seizure. She states she woke up had felt nausea and abd pain, tried to jarvis the bathroom, could not have BM. Walked back from her bathroom to bedroom, and next thing she knew she was on the ground. She denies interictal tongue biting or incontinence. She was confused upon arousal, and just wanted to sleep afterwards. She was seen in the [facility]- tx'd for gastroenteritis. States her GI s/s started to improve after 2-3 days. Had f/u cardiology eval- likely vasovgala syncope. Has not had EEG. Has an aunt who has vasovagal syncope s/s. EKG with sinus rhythm at 71/Min; no significant ST-T changes and otherwise unremarkable. Normal AK and corrected QT. Echocardiogram with normal LVEF, 60-65%; normal diastolic filling and otherwise unremarkable. Her BLE neuropathic pain had been stable, but then she ran out of her gabapentin for a couple of weeks as her pharmacy did not refill her Gabapentin. States while off gabapentin she felt internal clness and tingling in bilateral feet. She resumed Germaine last night- took 300mg, and her feet felt better and she slept better. She denies BLE weakness, swelling, skin color changes. [facility] Medical History Fibroid Diabetes History of gestational diabetes Pancreatitis Colon cancer screening Physical exam Peroneal neuropathy Dyslipidemia Impaired glucose tolerance Hypovitaminosis D Seasonal allergies Uterine fibroid HTN (hypertension) Surgical History History of cholecystectomy History of myomectomy Hx of tubal ligation Hx of section Family History Mother HTN (hypertension) Asthma Arthritis Paternal Aunt HTN (hypertension) Diabetes mellitus Breast cancer Maternal Grandfather Diabetes mellitus Prostate cancer Stomach cancer Paternal Grandfather Diabetes mellitus HTN (hypertension) Father HTN (hypertension) Substance use disorder Social History Housing: House Alcohol intake: never Patient Tobacco Use Status: Never used Tobacco e-Cigarette/Vaping Use: Never Used Second Hand Smoke Exposure: No service: No Current occupational status: employed Current occupational exposures/hazards: No Gender identity: Female Cognitive needs: No Hearing needs: No Vision needs: No Female Reproductive History Menstrual Age of Menarche: 15 Date of menopause: 01/19/20 Physical Exam Vital Signs: Last Vital Signs Pulse 77 03/11/24 10:53 BP 116/80 03/11/24 10:53 Pulse Ox 98 03/11/24 10:53 Oxygen Delivery Method Room Air 03/11/24 10:53 BMI result Body Mass Index 28.9 Const General: cooperative and no acute distress Orientation/consciousness: patient oriented x3 HEENT Head: Yes normocephalic Resp Effort & Inspection: normal respiratory effort and able to speak in complete sentences Neuro Other: Bilateral pedal pulses 1+ Bilateral CMS intact - skin warm and dry and intact without rashes, erythema, excess warmth, edema. Bilateral lower extremity light touch, sharp touch, proprioception intact Bilateral feet with low arches. General: patient oriented x3, gait normal and CN's II-XI intact bilaterally Cognition (Neuro): normal cognition Motor exam (neuro): 5/5 motor strength present throughout Psych Appearance: grossly normal Mental Status: mental status grossly normal Speech and movement: Normal speech and movement present Affect: normal affect Attitude: cooperative Thought process: Normal thought process present Thought content: Normal thought content present Insight: Good insight present (Psych) Judgement: Good judgement present (Psych) Assessment & Plan Assessment & Plan (1) Bilateral foot pain: Code(s): M79.671 - Pain in right foot; M79.672 - Pain in left foot Category: Medical (2) Paresthesias: Code(s): R20.2 - Paresthesia of skin Category: Medical (3) Syncope: Code(s): R55 - Syncope and collapse Category: Medical Plan For syncope- Concur that episode was likely vasovagal syncope. Reviewed EEG-unremarkable. For BLE paresthesias: LLE EMG/NCS- normal. Continue home PT exercises. Continue Gabapentin 100-200mg qhs, may take up to 300mg qhs prn. For new onset BLE dorsal forefoot/toe painful coldness: Check labs for common etiologies We will request podiatry consult For jaimie-oral lesion c/w HSV: As the lesion is painful and interfering with oral intake, will order valacyclovir 2 g p.o. q.12 hours x2 doses. f/u in 6 months or sooner prn new/worsening s/s. Orders: Orders Vitamin B12 and Folate Today E11.9 - Type 2 diabetes mellitus without complications, R20.2 - Paresthesia of skin Comprehensive Met. Panel Today E11.9 - Type 2 diabetes mellitus without complications, R20.2 - Paresthesia of skin TSH reflex Free T4 Today E11.9 - Type 2 diabetes mellitus without complications, R20.2 - Paresthesia of skin Vitamin B6 Today E11.9 - Type 2 diabetes mellitus without complications, R20.2 - Paresthesia of skin Complete Blood Count Auto Diff Today E11.9 - Type 2 diabetes mellitus without complications, R20.2 - Paresthesia of skin Referrals Podiatry Referral E11.9 - Type 2 diabetes mellitus without complications, M79.671 - Pain in right foot, M79.672 - Pain in left foot Medications: New valacyclovir 2,000 mg (2 x 1 gram) PO Q12H 4 tabs 0RF 1 day Refilled gabapentin 100 - 300 mg (1 - 3 x 100 mg) PO BEDTIME 270 caps 1RF 90 days Coding Level of Care Code Est Pt Level 4 (90462) Diagnoses Bilateral foot pain M79.671; M79.672 Paresthesias R20.2 Syncope R55
[2024-03-11 10:53] VITALS: BP 116/80; PULSE 77; O2SAT 98; BMI 28.9
== END 2024-03-11 11:55 | disposition home or self-care (01) ==
PROVIDERS: PCP Internal Medicine; Visit Provider Nurse Practitioner Family
DX: M79.671 Pain in right foot (principal); M79.672 Pain in left foot; R20.2 Paresthesia of skin; R55 Syncope and collapse
CPT/HCPCS: 99214

== ENCOUNTER → 2024-03-11 10:47 | Outpatient (BNVA) | payer OTHER, SELFPAY | PROVIDERS: PCP Internal Medicine; Visit Provider Nurse Practitioner Family | DX: M79.671 Pain in right foot (principal); M79.672 Pain in left foot; R20.2 Paresthesia of skin; R55 Syncope and collapse; E11.9 Type 2 diabetes mellitus without complications | CPT/HCPCS: 99212 ==

== ENCOUNTER 2024-03-15 07:53 | Outpatient (AMB) | payer OTHER, SELFPAY ==
--- NOTE | 2024-03-15 08:04 | MHC.OFFVIS ---
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 She does not have any postmenopausal bleeding. LMP was 2019. She is feeling well and has no other concerns. [facility] Medical History Fibroid Diabetes History of gestational diabetes Pancreatitis Colon cancer screening Physical exam Peroneal neuropathy Dyslipidemia Impaired glucose tolerance Hypovitaminosis D Seasonal allergies Uterine fibroid HTN (hypertension) Surgical History History of cholecystectomy History of myomectomy Hx of tubal ligation Hx of section Family History Mother HTN (hypertension) Asthma Arthritis Paternal Aunt HTN (hypertension) Diabetes mellitus Breast cancer Maternal Grandfather Diabetes mellitus Prostate cancer Stomach cancer Paternal Grandfather Diabetes mellitus HTN (hypertension) Father HTN (hypertension) Substance use disorder Social History Housing: House Alcohol intake: never Patient Tobacco Use Status: Never used Tobacco e-Cigarette/Vaping Use: Never Used Second Hand Smoke Exposure: No service: No Current occupational status: employed Current occupational exposures/hazards: No Gender identity: Female Cognitive needs: No Hearing needs: No Vision needs: No Female Reproductive History Menstrual Age of Menarche: 15 Date of menopause: 01/19/20 Review of Systems Const All systems reviewed & are unremarkable except as noted in HPI and below Endo Reports no additional complaints Physical Exam Const General: cooperative, healthy appearing and no acute distress Psych Appearance: well kempt Attitude: cooperative Thought process: Normal thought process present Results Reviewed Results Reviewed: [address] [address] Ultrasound Report Signed Patient: Jenelle Anglin I MR#: [id number] : 1970 Acct:[id number] Age/Sex: 53 / F ADM Date: 10/26/23 Loc: HO. Attending Dr: Francesca Vides CNM Ordering Physician: Francesca Vides CNM Date of Service: 10/26/23 Procedure(s): US pelvic and transvaginal Accession Number(s): [id number] cc: Francesca Vides CNM; Ariana Arias MD~ EXAMINATION: US PELVIS, TRANSABDOMINAL AND TRANSVAGINAL CLINICAL INFORMATION: Follow-up fibroids. COMPARISON: 05/01/2023 TECHNIQUE: Ultrasound of the pelvis is performed using both transabdominal and transvaginal transducers along with Doppler. Transvaginal imaging is performed due to inadequate visualization transabdominally. FINDINGS: UTERUS: The uterus is anteverted and measures 8.3 x 3.1 x 3.7 cm. At the time of the prior study, 2 fibroids were visualized. The double wall endometrial thickness is 1 mm. Previously this measured 6 mm. The uterus is smooth in contour and has normal myometrial echogenicity. A single submucosal fibroid is seen measuring 1.6 x 1.6 x 1.4 cm (previously 2.0 x 2.0 x 2.3 cm. Nabothian cysts are seen in the cervix. ADNEXA: Both ovaries are visualized. There is normal color flow to the adnexa. There is no ovarian torsion. There is no pelvic ascites or fluid collection. Right ovary measures 1.3 x 1.3 x 1.6 cm for a volume of 1.4 mL and appears normal. Left ovary measures 1.8 x 0.9 x 1.6 cm for a volume of 1.4 mL and appears normal. US/US pelvic and transvaginal IMPRESSION: Submucosal fibroid has decreased in size. Electronically signed by: Zak Smith MD 10/28/2023 05:04 PM EDT Dictated By: Zak Smith MD Signed By: <Electronically signed by Zak Smith MD in OV> 10/28/23 1704 DD/ 1053 TD/TT: 10/26/23 1108 Visual And Stock Associate: Assessment & Plan Assessment & Plan (1) Uterine fibroid: Code(s): D25.9 - Leiomyoma of uterus, unspecified Qualifiers: Uterine leiomyoma location: unspecified location Qualified Code(s): D25.9 - Leiomyoma of uterus, unspecified Plan: Discussed ultrasound findings: Counseled re: Leiomyoma: common pelvic neoplasm. Differential diagnosis-may include but not limited to- leiomyosarcoma which is a rare uterine sarcoma 3-7/100,000, difficult to distinguish from fibroids on ultrasound from uterine sarcoma's. Unlikely any single test will have a highly positive predictive value. Hysterectomy is not recommended for sole purpose of excluding malignant neoplasm. Consult for surgical exploration, medical treatment, other treatments, verses expectant management, pros and cons, risks and benefits. Expectant management follow up in 6 months, then one year for stability-completed. Patient prefers to proceed with expectant management. Report any PMB, pelvic pressure, bloating, or pain. Referral to MD if indicated for level of care if indicated. (2) Encounter to discuss test results: Code(s): Z71.2 - Person consulting for explanation of examination or test findings Plan: as noted above. Plan Endometrial lining 0.6 cm, stable lining from previous measurement, previous endometrial biopsy 06/29/2023 was negative. Advised if any postmenopausal bleeding including light spotting, if occurs to report to the office for evaluation endometrial biopsy. Reviewed anatomical findings in postmenopausal an endometrial lining thickness measurements with the use of pelvic model. Annual exam scheduled for May of 2024. The patient expressed understanding and agreement with the plan of care. All of her questions and concerns were addressed to the best of my ability. This note is constructed using voice recognition software. While every effort has been made to ensure accuracy, program director cable television errors may have been included. Coding Level of Care Code Est Pt Level 3 (09314) Diagnoses Uterine leiomyoma, unspecified location D25.9 Uterine leiomyoma location: unspecified location Encounter to discuss test results Z71.2
== END 2024-03-15 08:49 | disposition home or self-care (01) ==
LOC: HO.HWS 07:53
PROVIDERS: PCP Internal Medicine; Visit Provider Advanced Practice Midwife
DX: D25.9 Leiomyoma of uterus, unspecified (principal); Z71.2 Person consulting for explanation of examination or test findings
CPT/HCPCS: 99213

== ENCOUNTER → 2024-03-15 07:53 | Outpatient (BNVA) | payer OTHER, SELFPAY | PROVIDERS: PCP Internal Medicine; Visit Provider Advanced Practice Midwife | DX: D25.9 Leiomyoma of uterus, unspecified (principal); Z71.2 Person consulting for explanation of examination or test findings | CPT/HCPCS: 99212 ==

== ENCOUNTER 2024-04-25 11:44 | Outpatient (REF) | payer OTHER, SELFPAY ==
[2024-04-25 11:55] LABS: MANUAL DIFF FLAG NO
[2024-04-25 12:16] LABS: Basophils Absolute Auto 0.1 X10*3/uL (0.0-0.2); Basophils Percent Auto 0.7 % (0-2); Eosinophils Absolute Auto 0.2 X10*3/uL (0.0-0.4); Eosinophils Percent Auto 2.3 % (0-4); Hematocrit 40.9 % (37.0-47.0); Hemoglobin 13.4 g/dl (12.0-16.0); Imm Gran Abs Auto 0.01 X10*3/uL (0.00-0.03); Imm Gran Pct Auto 0.1 % (0.0-0.4); Lymphocytes Absolute Auto 2.9 X10*3/uL (1.2-4.9); Lymphocytes Percent Auto 35.6 % (20-40); Mean Corpuscular HGB Conc 32.8 g/dl (31.0-35.0); Mean Corpuscular Volume 91.7 fL (80.0-98.0); Mean Platelet Volume 11.8 fL (9.4-12.3); Monocytes Absolute Auto 0.4 X10*3/uL (0.1-1.2); Monocytes Percent Auto 5.1 % (2-11); Neutrophils Absolute Auto 4.5 x10*3/uL (2.0-8.3); Neutrophils Percent Auto 56.2 % (45-73); Platelet Count 267 X10*3/uL (160-400); Red Blood Count 4.46 X10*6/uL (4.20-5.50); Red Cell Distribution Width 13.8 % (11.0-16.0); White Blood Count 8.1 X10*3/uL (4.8-10.8)
[2024-04-25 13:12] LABS: TSH reflex Free T4 0.51 uIU/mL (0.32-4.0)
[2024-04-25 13:15] LABS: Anion Gap 14 (12-20); Folate 13.4 ng/mL (> or = 4.0); Vitamin B12 389 pg/mL (200-900)
[2024-04-25 13:19] LABS: Alanine Aminotransferase 25 U/L (0-31); Albumin Level 4.4 g/dL (3.5-5.0); Alkaline Phosphatase 46 U/L (39-117); Aspartate Amino Transferase 20 U/L (5-31); Bilirubin Total 0.5 mg/dL (0.0-1.0); Blood Urea Nitrogen 27 mg/dL (9-16); Calcium 9.4 mg/dL (8.4-10.2); Carbon Dioxide 24 mmol/L (22-29); Chloride 108 mmol/L (96-108); Estimated Glomerular Filt Rate > 60; Glucose Random 102 mg/dL (60-115); Potassium 4.6 mmol/L (3.3-5.1); Sodium 141 mmol/L (135-145); Total Protein 7.9 g/dL (6.5-8.0)
== END 2024-04-25 11:45 | disposition home or self-care (01) ==
LOC: HO.LAB 11:44
PROVIDERS: PCP Internal Medicine; Visit Provider Nurse Practitioner Family
DX: E11.9 Type 2 diabetes mellitus without complications (principal); R20.2 Paresthesia of skin
CPT/HCPCS: 36415; 80053; 82607; 82746; 84443; 85025

== ENCOUNTER 2024-05-13 08:25 | Outpatient (REF) | payer OTHER, SELFPAY ==
--- OUTSIDE RECORDS SUMMARY | 2024-05-13 08:42 | XMS_ITS | Clinical Summary ---
Author Organization 175 [facility] Address [address] [place] [address] Phone Care Team Providers Care Welfare Visitor Name Role Phone Ariana De Anda MD Primary Care Provider [phone] Social History Tobacco Use Types Packs/Day Years Used Date Smoking Tobacco: Never Assessed Comments Unknown Sex and Gender Information Value Date Recorded Sex Assigned at Not on file Legal Sex Female 7:22 AM EDT Gender Identity Not on file Sexual Orientation Not on file Plan of Treatment Upcoming Encounters Date Type Department Care Team ([facility] Contact Info) Description 07/20/2024 9:45 AM EDT Consult Orthopedic Surgery - [place] [id number] [phone] Carmelo Carmona, DPChris [address] [address] Health Maintenance Due Date Last Done Comments Breast Cancer Screening 1970 Diabetes: Annual GFR (Glomer ular Filtration Rate) 1971 Diabetes: Annual Foot Exam 1981 Diabetes: Annual Retina Eye Exam 1981 DTaP,Tdap,and Td Vaccines (1 - Tdap) 1990 Hepatitis B Vaccines (1 of 3 - 19+ 3-dose series) 1990 Pneumococcal Vaccine: 50+ Ye ars (1 of 2 - PCV) 1990 Pneumococcal Vaccine: Pediat rics (0 to 5 Years) and At-Risk Patients (6 to 64 Years) (1 of 2 - PCV) 1990 Cervical Cancer Screening: P ap Smear 1992 Zoster Vaccines (1 of 2) 2021 COVID-19 Vaccine ( - 2023-2 5 season) 2023 Influenza Vaccine (#1) 2023 Cholesterol Screening (Lipid Panel) 05/03/2024 Colorectal Cancer Screening: Colonoscopy 05/03/2024 Depression Screening 05/03/2024 Diabetes: Annual Urine Albumin-Creatinine Ratio (uACR) 05/03/2024 Diabetes: Blood Sugar Contro l Test (HGBA1C) 05/03/2024 HIV Screening 05/03/2024 Hepatitis C Screening 05/03/2024 Social Influencers of Health Screening 05/03/2024 HIB Vaccines Aged Out No longer eligi ble based on patient's age to complete this topic HPV Vaccines Aged Out No longer eligi ble based on patient's age to complete this topic Hepatitis A Vaccines Aged Out No long er eligible based on patient's age to complete this topic IPV Vaccines Aged Out No longer eligi ble based on patient's age to complete this topic MMR Vaccines Aged Out No longer eligi ble based on patient's age to complete this topic Meningococcal ACWY Vaccine Aged Out N o longer eligible based on patient's age to complete this topic Meningococcal B Vacine Aged Out No lo nger eligible based on patient's age to complete this topic RSV Immunization Patients Un sanjuanita 20 months Aged Out No longer eligible b ased on patient's age to complete this topic Varicella Vaccines Aged Out No longer eligible based on patient's age to complete this topic Insurance MED[place] - [place] [facility] Care Teams Welfare Visitor Relationship Specialty Start Date End Date Ariana De Anda MD [address] [place] [address] PCP - General Internal Medicine 05/03/24
== END 2024-05-13 08:26 | disposition home or self-care (01) ==
LOC: HO.LAB 08:25
PROVIDERS: Absent Provider Nurse Practitioner Family; PCP Internal Medicine; Visit Provider Internal Medicine
DX: E11.9 Type 2 diabetes mellitus without complications (principal); R20.2 Paresthesia of skin
CPT/HCPCS: 36415; 84207

== ENCOUNTER 2024-05-16 07:52 | Outpatient (AMB) | payer OTHER, SELFPAY ==
--- OUTSIDE RECORDS SUMMARY | 2024-05-16 07:58 | XMS_ITS | Clinical Summary ---
Author Organization 175 [facility] Address [address] [place] [address] Phone Care Team Providers Care Project Design Engineer Name Role Phone Ariana De Anda MD Primary Care Provider [phone] Social History Tobacco Use Types Packs/Day Years Used Date Smoking Tobacco: Never Assessed Comments Unknown Sex and Gender Information Value Date Recorded Sex Assigned at Not on file Legal Sex Female 7:22 AM EDT Gender Identity Not on file Sexual Orientation Not on file Plan of Treatment Upcoming Encounters Date Type Department Care Team ([facility] Contact Info) Description 07/20/2024 9:45 AM EDT Consult Orthopedic Surgery - [place] [id number] [phone] Carmelo Carmona, DPChris [address] [address] Health Maintenance Due Date Last Done Comments [...] complete this topic Insurance MEDICAID - [place] [facility] [employer] Care Teams Project Design Engineer Relationship Specialty Start Date End Date Ariana De Anda MD [address] [place] [address] PCP - General Internal Medicine 05/03/24
--- NOTE | 2024-05-16 08:30 | MHC.PC.OV ---
Vital Signs 05/16/24 08:34 Height 5 ft 2 in Weight 157 lb BMI 28.7 BP 118/80 Blood Pressure Location Lt brachial Position Sitting Intake Visit Reasons: Annual Exam Intake Note: Patient here for an annual physical exam Herb Grower Required: No Accompanied by: Self / Same As Patient Allergies Seasonal Allergies Allergy (Mild, Verified 05/16/24 08:50) runny nose/itchy eyes Medication List - Last Reconciled 05/16/24 by Ariana De Anda MD atorvastatin 40 mg PO BEDTIME 90 days blood sugar diagnostic (FreeStyle Lite Strips) Use 1 test strip once a day blood-glucose meter (FreeStyle Lite Meter kit) As directed celecoxib (Celebrex) 200 mg PO DAILY cetirizine 10 mg PO DAILY cholecalciferol (vitamin D3) 25 mcg PO DAILY 90 days cromolyn 4% 1 drp ophthalmic (eye) QID epinephrine 0.3 mg IM DIRECTED fluticasone propionate 50 mcg/actuation 1 spray intranasal DAILY gabapentin 100 - 300 mg (1 - 3 x 100 mg) PO BEDTIME 90 days ketotifen fumarate 0.025%(0.035%) drps ophthalmic (eye) lancets (FreeStyle Lancets) Use 1 lancet once a day lisinopril 5 mg PO DAILY 90 days metformin 500 mg PO BID 90 days omeprazole 20 mg PO DAILY 90 days triamcinolone acetonide 0.1% 1 appl topical BID valacyclovir 2,000 mg (2 x 1 gram) PO Q12H 1 day Tobacco use date assessed: 02/24/24 Dental Screening Dental Screen Date: 02/24/24 HPI HPI Comments History of Present Illness Details The patient is a 54-year-old female presenting for an annual physical examination. She has a history of type 2 diabetes mellitus, currently managed with recent A1c results showing good control at 5.8. Her LDL levels have remained at 71 as of her last test in February. She has a background of seasonal allergies that are managed with cetirizine and eczema, which worsens in the winter months. Regular vaccinations were confirmed, with her last tetanus booster administered in 2012. She received the pneumococcal vaccination at age 52, with the next shot scheduled for age 57 in light of her diabetes. Her recent mammographic screening last January and a Pap smear with biopsy in 2022 showed normal findings; the details of the biopsy remain undisclosed. Her colonoscopy in 2022 did not reveal any pathology, with the next screening scheduled in ten years. An ophthalmologic evaluation earlier this year revealed no diabetes-related complications. Her therapeutic regimen includes atorvastatin, lisinopril, metformin, omeprazole, celecoxib PRN, vitamin D, epinephrine auto-injector for emergencies, and gabapentin for chronic pain. A prior herpes labialis episode responded well to antiviral treatment. The patient leads a lifestyle devoid of tobacco and alcohol and recently consulted with a fish farm manager for routine diabetic foot monitoring. - Received pneumococcal vaccination at age 52; next dose due at age 57. - Tetanus booster last received in 2012; recommended every 10 years. - Last mammogram in January 2022, results normal. - Recent Pap smear and biopsy in 2022; follow-up details not discussed. - Colonoscopy performed in 2022, normal; next screening in 10 years. - Recent eye examination earlier this year with no diabetic-related complications identified. - LDL last measured at 71 in February. [facility] Medical History Fibroid Diabetes History of gestational diabetes Pancreatitis Colon cancer screening Physical exam Peroneal neuropathy Dyslipidemia Impaired glucose tolerance Hypovitaminosis D Seasonal allergies Uterine fibroid HTN (hypertension) Surgical History History of cholecystectomy History of myomectomy Hx of tubal ligation Hx of section Family History Mother HTN (hypertension) Asthma Arthritis Paternal Aunt HTN (hypertension) Diabetes mellitus Breast cancer Maternal Grandfather Diabetes mellitus Prostate cancer Stomach cancer Paternal Grandfather Diabetes mellitus HTN (hypertension) Father HTN (hypertension) Substance use disorder Social History Housing: House Alcohol intake: never Patient Tobacco Use Status: Never used Tobacco e-Cigarette/Vaping Use: Never Used Second Hand Smoke Exposure: No service: No Current occupational status: employed Current occupational exposures/hazards: No Gender identity: Female Cognitive needs: No Hearing needs: No Vision needs: No Female Reproductive History Menstrual Age of Menarche: 15 Date of menopause: 01/19/20 Questionnaire PHQ-9 Over the last 2 weeks, how often have you been bothered by any of the following problems? 1. Little interest or pleasure in doing things: not at all 2. Feeling down, depressed, or hopeless: not at all 3. Trouble falling or staying asleep, or sleeping too much: not at all 4. Feeling tired or having little energy: not at all 5. Poor appetite or overeating: not at all 6. Feeling bad about yourself - or that you are a failure or have let yourself or your family down: not at all 7. Trouble concentrating on things, such as reading the newspaper or watching television: not at all 8. Moving or speaking so slowly that other people could have noticed. Or the opposite - being so fidgety or restless that you have been moving around a lot more than usual: not at all 9. Thoughts that you would be better off or of hurting yourself in some way: not at all Total score: 0 Depression Screening Interpretation: Negative Depression Screening Done: Yes 38092 - PHQ-9 Billing: Yes Source: Developed by Drs. Turner Craft, Brandi Herman, Kushal Vergara and colleagues, with an educational sami from [employer]. Thrive Questionnaire Date Thrive assessed: 02/24/24 I am a: Patient What is your living situation today?: I have a steady place to live Within the past 12 months, did the food you bought not last and you didn't have the money to get more?: Never true Within the past 12 months, did you worry whether your food would run out before you got money to buy more?: Never true Do you have trouble paying for medicines?: No Do you have trouble getting transportation to medical appointments?: No Do you have trouble paying your heating and electricity bill?: No Do you have trouble taking care of your child, family member or friend?: No Do you have trouble with day-to-day activities such as bathing, preparing meals, shopping, managing finances, etc.?: No Are you currently unemployed and looking for a job?: No Are you interested in more education?: No Please select the resources that you would like help with: None Currently or been in a relationship where the following occur: No concerns reported THRIVE Score: 0 AUDIT C Alcohol Use Questionnaire (AUDIT-C) 1. How often do you have a drink containing alcohol?: Never Total Score: 0 BRANDY-7 AMB Questionnaire BRANDY-7 Date BRANDY - 7 assessed: 02/24/24 Feeling nervous, anxious, or on edge: 0 = Not at all Not being able to stop or control worryin = Not at all Worrying too much about different things: 0 = Not at all Trouble relaxin = Several days Being so restless that it is hard to sit still: 0 = Not at all Becoming easily annoyed or irritable: 0 = Not at all Feeling afraid as if something awful might happen: 0 = Not at all Total BRANDY-7 score (0-4 normal; 5-9 mild; 10-14 moderate; 15-21 severe): 1 Source: Developed by Drs. Turner Craft, Brandi Herman, Kushal Vergara and colleagues, with an educational sami from [employer]. BRANDY-7 Assessment Billing BRANDY-7 Assessment Tool: BRANDY-7 Assessment 20111 Review of Systems Const All systems reviewed & are unremarkable except as noted in HPI and below Card Denies chest pain at rest, Denies chest pain with activity, Denies edema, Denies irregular heart rhythm, Denies claudication, Denies dyspnea, Denies dyspnea on exertion, Denies orthopnea, Denies paroxysmal nocturnal dyspnea and Denies slow heart rate Resp Denies cough, Denies dyspnea and Denies dyspnea on exertion GI Denies abdominal pain, Denies change in bowel habits, Denies excessive flatus, Denies nausea and Denies vomiting Denies urinary incontinence, Denies urinary hesitancy and Denies urinary urgency Musc Denies abnormal gait, Denies atrophy, Denies deformity and Denies limited range of motion Skin/Breast Denies bleeding lesions, Denies changing lesions and Denies rash Neuro Denies abnormal gait, Denies confusion and Denies lack of coordination Psych Denies confusion Physical exam (Primary Care) Vital Signs: Last Vital Signs BP 118/80 05/16/24 08:34 BMI result Body Mass Index 28.7 Tobacco/Smoking Status: Tobacco use Status Tobacco use date assessed 02/24/24 05/16/24 08:34 Patient Tobacco Use Status Never used Tobacco 05/16/24 08:34 e-Cigarette/Vaping Use Never Used 05/16/24 08:34 PHQ-9: PHQ-9 Score PHQ-9: Total score 0 05/16/24 09:06 Depression Screening Interpretation: Negative Thrive Assessment: Date of Thrive Assessment Date Thrive assessed 02/24/24 05/16/24 08:34 Currently or been in a relationship where the following occur: No concerns reported Const General: No confusion Orientation/consciousness: patient oriented x3 and No confusion HENMT Head: Yes normal to inspection, Yes normocephalic and Yes atraumatic Ears: external ears normal Eyes General: appearance normal, both eyes and all related structures Eyelids: Yes eyelids normal Conjunctivae: conjunctivae normal Neck Neck: Yes normal visual inspection and Yes supple Resp Effort & Inspection: normal respiratory effort Auscultation: clear to auscultation bilaterally Cardio Jugular venous distension: no JVD Rate: regular rate Rhythm: regular rhythm Heart sounds: S1 normal heart sound present and S2 normal heart sound present GI Inspection: Yes normal to inspection Palpation (GI): Soft to palpation and nontender Auscultation: normal bowel sounds Skin General skin exam: no rashes or lesions noted Neuro General: patient oriented x3, no focal motor deficits and No confusion Extrem General: Yes full ROM Psych Appearance: grossly normal Immunizations Boostrix Tdap 2.5 Lf unit-8 mcg-5 Lf/0.5 mL intramuscular syringe Performing Provider: Ariana De Anda MD [facility] Administered by: ZEKE Goetz on 05/16/24 09:08 Dose Route Admin Location Dispensed Lot Number Expiration Date [facility] Oyster Washer 0.5 mL IM Left Deltoid 0.5 mL [id number] 07/23/26 [id number] [facility] Given Date VIS Provided VIS Publication Date 05/16/24 Single Vaccine 24 Eligibility Eligibility Date Funding Source Not [facility] Eligible 05/16/24 Private Coding Level of Care Code Est Pt Prev Care >65y(73814) Diagnoses Physical exam Z00.00 Type 2 diabetes mellitus without complication, without long-term current use of insulin E11.9 Diabetes mellitus type: type 2 Diabetes mellitus exterminator helper termite insulin use: without detention use Diabetes mellitus complication status: without complication Additional Codes BRANDY-7 Assessment Billing - BRANDY-7 Assessment Tool: BRANDY-7 Assessment 20925 ([id number]) PHQ-9 - 69862 - PHQ-9 Billing: Yes ([id number]) Time Spent (min) 31 Assessment & Plan Assessment & Plan (1) Physical exam: Code(s): Z00.00 - Encounter for general adult medical examination without abnormal findings Category: Medical (2) Diabetes mellitus: Code(s): E11.9 - Type 2 diabetes mellitus without complications Category: Medical Qualifiers: Diabetes mellitus type: type 2 Diabetes mellitus exterminator helper termite insulin use: without exterminator helper termite use Diabetes mellitus complication status: without complication Qualified Code(s): E11.9 - Type 2 diabetes mellitus without complications Plan Hypertension remains under control with lisinopril, and her lipid panel, primarily the LDL managed with atorvastatin, remains appropriate. The tetanus booster was administered to update her immunization schedule, and the pneumococcal vaccine is on track for her next dose at age 57. Addressing her seasonal allergies with cetirizine and ensuring sufficient eczema flare management, particularly with changes in season, was necessary. The patient is encouraged to continue routine mammograms and anticipates her next colonoscopy in a decade. Our focus remains on preventing diabetic complications and continuing engagement with podiatry care.: Patient was informed and verbally consented to the use of an ambient scribe for clinic note documentation during this visit. Today, I discussed with the patient her current health maintenance schedule, including the benefits and requirements for her vaccinations. We reviewed her chronic conditions?diabetes, hypertension, and hyperlipidemia?and ensured her understanding of the continued use of her current medications and lifestyle recommendations. Risks and benefits of timely vaccinations were explained, and consent was obtained for the administered tetanus booster. Future preventative measures such as the next pneumococcal vaccine at age 57 and regular screenings were planned. Follow-up was aligned with maintaining a healthy lifestyle and managing chronic conditions effectively. Orders: Orders TDaP Immunization Today Z23 - Encounter for immunization Patient Instructions: - Continue metformin and lisinopril as prescribed for diabetes and hypertension control. - Take atorvastatin regularly as prescribed for hyperlipidemia. - Administer recently received tetanus booster regularly every 10 years. - Return for pneumococcal vaccine at age 57. - Continue with cetirizine for seasonal allergies as needed. - Manage eczema symptoms during winter months with prescribed methods. - Attend routine mammograms and annual health screenings. - Follow up with fish farm manager as needed in line with diabetic foot care. - Maintain current healthy lifestyle, avoiding tobacco and alcohol.
[2024-05-16 08:34] VITALS: BP 118/80; BMI 28.7
== END 2024-05-16 09:10 | disposition home or self-care (01) ==
LOC: HO.HMCH 07:52
PROVIDERS: PCP Internal Medicine; Visit Provider Internal Medicine
DX: Z00.00 Encounter for general adult medical examination without abnormal findings (principal); E11.9 Type 2 diabetes mellitus without complications; Z23 Encounter for immunization

== ENCOUNTER → 2024-05-16 07:52 | Outpatient (BNVA) | payer OTHER, SELFPAY | PROVIDERS: PCP Internal Medicine; Visit Provider Internal Medicine | DX: Z00.00 Encounter for general adult medical examination without abnormal findings (principal); E11.9 Type 2 diabetes mellitus without complications; Z23 Encounter for immunization; Z79.84 Long term (current) use of oral hypoglycemic drugs; Z79.899 Other long term (current) drug therapy | CPT/HCPCS: 90471; 90715; 96127; 99396 ==

== ENCOUNTER 2024-05-24 07:41 | Outpatient (AMB) | payer OTHER, SELFPAY ==
--- OUTSIDE RECORDS SUMMARY | 2024-05-24 07:43 | XMS_ITS | Clinical Summary ---
Author Organization 175 [facility] Address [address] [place] [address] Phone Care Team Providers Care Tenter Frame Operator Name Role Phone Ariana De Anda MD Primary Care Provider [phone] Social History Tobacco Use Types Packs/Day Years Used Date Smoking Tobacco: Never Assessed Comments Unknown Sex and Gender Information Value Date Recorded Sex Assigned at Not on file Legal Sex Female 7:22 AM EDT Gender Identity Not on file Sexual Orientation Not on file Plan of Treatment Upcoming Encounters Date Type Department Care Team ([facility] Contact Info) Description 07/20/2024 9:45 AM EDT Consult Orthopedic Surgery - [place] [id number] [id number] Carmelo Carmona, DPChris [address] [address] Health Maintenance Due Date Last Done Comments [...] Vaccines (1 of 2) 2021 COVID-19 Vaccine (2023-2 5 season) 2023 Cholesterol Screening (Lipid Panel) 05/03/2024 Colorectal Cancer Screening: Colonoscopy 05/03/2024 Depression Screening 05/03/2024 Diabetes: Annual Urine Albumin-Creatinine Ratio (uACR) 05/03/2024 Diabetes: Blood Sugar Contro l Test (HGBA1C) 05/03/2024 HIV Screening 05/03/2024 Hepatitis C Screening 05/03/2024 Social Influencers of Health Screening 05/03/2024 Influenza Vaccine (Season Ended) 2024 HIB Vaccines Aged Out No longer eligi [...] age to complete this topic Meningococcal B Vaccine Aged Out No l onger eligible based on patient's age to complete this topic RSV Immunization Patients Un sanjuanita 20 months Aged Out No longer eligible b ased on patient's age to complete this topic Varicella Vaccines Aged Out No longer eligible based on patient's age to complete this topic Insurance [place] - [place] [facility] Care Teams Tenter Frame Operator Relationship Specialty Start Date End Date Airana De Anda MD [address] [place] [address] PCP - General Internal Medicine 05/03/24
--- NOTE | 2024-05-24 07:45 | MHC.OFFVIS ---
Vital Signs 05/24/24 07:46 Height 5 ft 2 in Weight 157 lb BMI 28.7 BP 100/64 Intake Visit Reasons: [employer] annual exam Refractive Surgeon: Refractive Surgeon Present (Marichuy) Allergies Seasonal Allergies Allergy (Mild, Verified 05/24/24 07:46) runny nose/itchy eyes HPI Comments Details: She is a postmenopausal woman presenting for her annual impersonator character examination. She is doing well with impersonator character concerns. Currently sexually active. Denies any vaginal dryness or irritation. STI testing offered; she declined. Attempting to eat a healthy diet with calcium and vitamin D and stays active with exercise. Last pap smear; 2022. Last mammogram; 2023. Colonoscopy is UTD. Denies any family history of ovarian or colon cancer. FH breast cancer. [facility] Medical History Fibroid Diabetes History of gestational diabetes Pancreatitis Colon cancer screening Physical exam Peroneal neuropathy Dyslipidemia Impaired glucose tolerance Hypovitaminosis D Seasonal allergies Uterine fibroid HTN (hypertension) Surgical History History of cholecystectomy History of myomectomy Hx of tubal ligation Hx of section Family History Mother HTN (hypertension) Asthma Arthritis Paternal Aunt HTN (hypertension) Diabetes mellitus Breast cancer Maternal Grandfather Diabetes mellitus Prostate cancer Stomach cancer Paternal Grandfather Diabetes mellitus HTN (hypertension) Father HTN (hypertension) Substance use disorder Social History Housing: House Alcohol intake: never Patient Tobacco Use Status: Never used Tobacco e-Cigarette/Vaping Use: Never Used Second Hand Smoke Exposure: No service: No Current occupational status: employed Current occupational exposures/hazards: No Gender identity: Female Cognitive needs: No Hearing needs: No Vision needs: No Female Reproductive History Menstrual Age of Menarche: 15 control method: permanent sterilization Permanent Sterilization: BTL Menopause type: natural Date of menopause: 01/19/20 Total pregnancies: 1 Full term: 1 Number of Living Children: 1 Date of last pap smear: 02/12/22 (neg) Date of Mammogram: 02/01/24 (Birad 1) Review of Systems Const All systems reviewed & are unremarkable except as noted in HPI and below Reports as per HPI Eyes Reports no additional complaints ENT Reports no additional complaints Card Reports no additional complaints Resp Reports no additional complaints GI Reports as per HPI and Reports no additional complaints Reports as per HPI Musc Reports no additional complaints Skin/Breast Reports as per HPI Neuro Reports no additional complaints Psych Reports no additional complaints Endo Reports no additional complaints William/Lymph Reports no additional complaints Aller/Immun Reports no additional complaints Physical Exam Vital Signs: Last Vital Signs BP 100/64 05/24/24 07:46 BMI result Body Mass Index 28.7 Const General: cooperative, healthy appearing, no acute distress, well developed and alert Orientation/consciousness: patient oriented x3 HEENT Head: Yes normal to inspection Eyes General: appearance normal, both eyes and all related structures Neck Neck: Yes normal visual inspection Thyroid: Thyroid normal Chest Chest palpation & inspection: normal inspection of the chest and other (no puckering, dimpling, peau de orange, retraction, discharge, masses) Breast/axilla inspection: normal inspection of the breasts Breast/axilla palpation: normal palpation of the breasts Resp Effort & Inspection: normal respiratory effort GI Inspection: Yes normal to inspection and Yes scar Palpation (GI): Soft to palpation Rectal Exam - Female: deferred General: Yes bladder normal to palpation External Female Exam: normal external appearance and normal appearance of the urethra Speculum Exam - Vagina: normal appearance of the vagina, normal palpation, normal vaginal discharge and vagina atrophic Speculum Exam - Cervix: normal appearance of the cervix and normal palpation Bimanual exam- vagina & uterus: normal bimanual exam, normal palpation, uterine size normal, bladder normal to palpation, normal palpation and non-tender Bimanual Exam- Adnexa, other: no masses Skin General skin exam: no rashes or lesions noted Rashes: no rashes Neuro General: patient oriented x3 Cognition (Neuro): normal cognition Extrem General: Yes normal to inspection Psych Attitude: cooperative Thought process: Normal thought process present Assessment & Plan Assessment & Plan (1) Well woman exam with routine gynecological exam: Code(s): Z01.419 - Encounter for gynecological examination (general) (routine) without abnormal findings Category: Medical Plan Discussed: Current recommendations for pap smears per ASCCP guidelines. Breast awareness, periodic self breast exams and yearly mammogram. Maintain a healthy lifestyle, well balanced diet including Calcium 1,200 mg and Vitamin D 600 IU daily, and routine exercise. Contact the office with any postmenopausal bleeding. Patient verbalizes understanding and agrees to the plan of care. She was given opportunity to ask questions and all questions were answered to the best of my ability. RTO in 1 year for annual impersonator character exam. This note is constructed using voice recognition software. While every effort has been made to ensure accuracy, food tester errors may have been included. Coding Level of Care Code Est Pt Prev Care 40-64y(61321) Diagnoses Well woman exam with routine gynecological exam Z01.419
[2024-05-24 07:46] VITALS: BP 100/64; BMI 28.7
== END 2024-05-24 08:52 | disposition home or self-care (01) ==
LOC: HO.HWS 07:41
PROVIDERS: PCP Internal Medicine; Visit Provider Advanced Practice Midwife
DX: Z01.419 Encounter for gynecological examination (general) (routine) without abnormal findings (principal)
CPT/HCPCS: 99396; 99459

== ENCOUNTER → 2024-05-24 07:41 | Outpatient (BNVA) | payer OTHER, SELFPAY | PROVIDERS: PCP Internal Medicine; Visit Provider Advanced Practice Midwife | DX: Z01.419 Encounter for gynecological examination (general) (routine) without abnormal findings (principal) | CPT/HCPCS: 99396; 99459 ==

== ENCOUNTER 2024-09-05 10:20 | Outpatient (AMB) | payer OTHER, SELFPAY ==
[2024-09-05 10:28] VITALS: BP 118/70; PULSE 77; O2SAT 97; BMI 29.0
--- NOTE | 2024-09-05 10:28 | MHC.OFFVIS ---
Vital Signs 09/05/24 10:28 Height 5 ft 2 in Weight 158 lb 9 oz BMI 29.0 BP 118/70 Blood Pressure Location Lt brachial Position Sitting Pulse 77 Pulse Source Pulse Oximeter Pulse Oximetry (%) 97 Oxygen Delivery Method Room Air Intake Visit Reasons: Follow up 6mo Intake Note: Patient presents follow up paresthesia medication. Labs in chart. Patient is requesting refill of Gabapentin. Accompanied by: Self / Same As Patient Allergies Seasonal Allergies Allergy (Mild, Verified 09/05/24 10:32) runny nose/itchy eyes Medication List - Last Reconciled 09/05/24 by OLIVA Rene atorvastatin 40 mg PO BEDTIME 90 days blood sugar diagnostic (FreeStyle Lite Strips) Use 1 test strip once a day blood-glucose meter (FreeStyle Lite Meter kit) As directed celecoxib (Celebrex) 200 mg PO DAILY cetirizine 10 mg PO DAILY cholecalciferol (vitamin D3) 25 mcg PO DAILY 90 days clobetasol 0.05% topical BID PRN cromolyn 4% 1 drp ophthalmic (eye) QID epinephrine 0.3 mg IM DIRECTED fluticasone propionate 50 mcg/actuation 1 spray intranasal DAILY gabapentin 100 - 300 mg (1 - 3 x 100 mg) PO BEDTIME 90 days ketotifen fumarate 0.025%(0.035%) drps ophthalmic (eye) lancets (FreeStyle Lancets) Use 1 lancet once a day lisinopril 5 mg PO DAILY 90 days metformin 500 mg PO BID 90 days omeprazole 20 mg PO DAILY 90 days triamcinolone acetonide 0.1% 1 appl topical BID HPI Comments Details: 54-yr-old female presents for f/u visit for bilateral lower extremity paresthesias. Patient denies any significant interval medical history changes. Lab workup was unremarkable.? Vitamin B12 was on low end of normal, in 300s. She has seen Podiatry, who shared her that the coldness sensation in her feet was secondary to her neuropathy. She denies lower extremity weakness, difficulty walking. States she is eating better, and walking more regularly. She is compliant with gabapentin, and is tolerating this well. She denies any interval syncopal episodes. 03/11/2024 HPI: Patient denies any significant interval medical history changes. 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 She states her last HSV outbreak was 4 years ago- typically only has an outbreak when she is very sick. She states her pharmacist advised her to speak to her HCP about trying an oral treatment- she has never tried valacyclovir before. EEG was normal. No further syncopal episodes. Pt reports a new symptom of bilateral dorsal forefoot/toe painful coldness, starting in the afternoon. This started 2 weeks ago. She has to wear 2 pairs of socks. Her usual BLE paresthesias are well-controlled on the Gabapentin. This new pain is different from that pain. Denies preceding accidents, change in her footwear, dietray changes. Denies skin color changes, swelling, upper leg pain. Recent HgA1C was 5.2%. Last HPI from 08/12/2023: Pt endorses the following interval medical history changes: Pt states in April, she had a syncopal event which was thought to be vasovagal syncope d/t abd pain d/t acute gastritis. Pt states she had not eaten, taken, or done anything different the day of or before. She has no h/o syncope before or after. She has no h/o seizure. She states she woke up had felt nausea and abd pain, tried to jarvis the bathroom, could not have BM. Walked back from her bathroom to bedroom, and next thing she knew she was on the ground. She denies interictal tongue biting or incontinence. She was confused upon arousal, and just wanted to sleep afterwards. She was seen in the [facility]- tx'd for gastroenteritis. States her GI s/s started to improve after 2-3 days. Had f/u cardiology eval- likely vasovgala syncope. Has not had EEG. Has an aunt who has vasovagal syncope s/s. EKG with sinus rhythm at 71/Min; no significant ST-T changes and otherwise unremarkable. Normal UT and corrected QT. Echocardiogram with normal LVEF, 60-65%; normal diastolic filling and otherwise unremarkable. Her BLE neuropathic pain had been stable, but then she ran out of her gabapentin for a couple of weeks as her pharmacy did not refill her Gabapentin. States while off gabapentin she felt internal clness and tingling in bilateral feet. She resumed Germaine last night- took 300mg, and her feet felt better and she slept better. She denies BLE weakness, swelling, skin color changes. [facility] Medical History Fibroid Diabetes History of gestational diabetes Pancreatitis Colon cancer screening Physical exam Peroneal neuropathy Dyslipidemia Impaired glucose tolerance Hypovitaminosis D Seasonal allergies Uterine fibroid HTN (hypertension) Surgical History History of cholecystectomy History of myomectomy Hx of tubal ligation Hx of section Family History Mother HTN (hypertension) Asthma Arthritis Paternal Aunt HTN (hypertension) Diabetes mellitus Breast cancer Maternal Grandfather Diabetes mellitus Prostate cancer Stomach cancer Paternal Grandfather Diabetes mellitus HTN (hypertension) Father HTN (hypertension) Substance use disorder Social History Housing: House Alcohol intake: never Patient Tobacco Use Status: Never used Tobacco e-Cigarette/Vaping Use: Never Used Second Hand Smoke Exposure: No service: No Current occupational status: employed Current occupational exposures/hazards: No Gender identity: Female Cognitive needs: No Hearing needs: No Vision needs: No Female Reproductive History Menstrual Age of Menarche: 15 Date of menopause: 01/19/20 Physical Exam Vital Signs: Last Vital Signs Pulse 77 09/05/24 10:28 BP 118/70 09/05/24 10:28 Pulse Ox 97 09/05/24 10:28 Oxygen Delivery Method Room Air 09/05/24 10:28 BMI result Body Mass Index 29.0 Const General: cooperative and no acute distress Orientation/consciousness: patient oriented x3 HEENT Head: Yes normocephalic Resp Effort & Inspection: normal respiratory effort and able to speak in complete sentences Neuro Other: Bilateral lower extremity light touch intact Bilateral feet with low arches. General: patient oriented x3, gait normal and CN's II-XI intact bilaterally Cognition (Neuro): normal cognition Motor exam (neuro): 5/5 motor strength present throughout Deep tendon reflexes (DTR's): Right patellar reflex intensity grade: 1+ and Left patellar reflex intensity grade: 1+ Psych Appearance: grossly normal Mental Status: mental status grossly normal Speech and movement: Normal speech and movement present Affect: normal affect Attitude: cooperative Thought process: Normal thought process present Thought content: Normal thought content present Insight: Good insight present (Psych) Judgement: Good judgement present (Psych) Assessment & Plan Assessment & Plan (1) Bilateral foot pain: Code(s): M79.671 - Pain in right foot; M79.672 - Pain in left foot Category: Medical (2) Paresthesias: Code(s): R20.2 - Paresthesia of skin Category: Medical (3) Syncope: Code(s): R55 - Syncope and collapse Category: Medical Qualifiers: Syncope type: vasovagal syncope Qualified Code(s): R55 - Syncope and collapse (4) Peroneal neuropathy: Code(s): G57.30 - Lesion of lateral popliteal nerve, unspecified lower limb Category: Medical Qualifiers: Laterality: unspecified laterality Qualified Code(s): G57.30 - Lesion of lateral popliteal nerve, unspecified lower limb Plan For syncope- Isolated episode was likely vasovagal syncope. EEG-unremarkable. Continue to monitor For BLE paresthesias: LLE EMG/NCS- normal. Continue home PT exercises. Continue Gabapentin 100-200mg qhs, may take up to 300mg qhs prn. For new onset BLE dorsal forefoot/toe painful coldness: Reviewed labs, overall within normal limits. However, as vitamin B12 is on low end of normal, trial starting vitamin B12 supplement 500 mcg daily. Follow-up with podiatry as scheduled f/u in 9 months or sooner prn new/worsening s/s. Medications: New cyanocobalamin (vitamin B-12) 500 mcg PO DAILY 30 tabs 6RF 30 days Refilled gabapentin 100 - 300 mg (1 - 3 x 100 mg) PO BEDTIME 270 caps 1RF 90 days Coding Level of Care Code Est Pt Level 4 (37612) Diagnoses Bilateral foot pain M79.671; M79.672 Paresthesias R20.2 Vasovagal syncope R55 Syncope type: vasovagal syncope Peroneal neuropathy, unspecified laterality G57.30 Laterality: unspecified laterality
--- OUTSIDE RECORDS SUMMARY | 2024-09-05 11:26 | XMS_ITS | Clinical Summary ---
Author Organization 175 [facility] Address [address] [place] [address] Phone Care Team Providers Care Venetian Blind Assembler Name Role Phone Ariana De Anda MD Primary Care Provider [phone] Encounters Date Type Department Care Team Description 07/20/2024 9:45 AM EDT Consult Orthopedic [facility] [address] [phone] Carmelo Carmona DPM Diabetic mononeuropathy simplex (CMS/HCC V24, CMS/HCC V28) (Primary Dx); Type 2 diabetes mellitus without complications (CMS/HCC V24, CMS/HCC V28); Bilateral foot pain; Dermatophytosis of nail; Pain in toe of right foot; Pain in toe of left foot from Last 3 Months Social History Tobacco Use Types Packs/Day Years Used Date Smoking Tobacco: Never Assessed Comments Unknown Sex and Gender Information Value Date Recorded Sex Assigned at Not on file Legal Sex Female 7:22 AM EDT Gender Identity Not on file Sexual Orientation Not on file Plan of Treatment Upcoming Encounters Date Type Department Care Team ([facility] st Contact Info) Description 07/19/2025 9:30 AM EDT Office Visit Orthopedic [facility] [address] [phone] Carmelo Carmona DPM [address] [id number] Health Maintenance Due Date Last Done Comments Breast Cancer Screening 1971 Diabetes: Annual GFR (Glomerular Filtration Rate) 1971 Diabetes: Annual Foot Exam 1981 Diabetes: Annual Retina Eye Exam 1981 Cervical Cancer Screening: Pap Smear 1992 Depression Screening 02/10/2024 Cholesterol Screening (Lipid Panel) 05/03/2024 Colorectal Cancer Screening: Colonoscopy 05/03/2024 Diabetes: Annual Urine Albumin-Creatinine Ratio (uACR) 05/03/2024 Diabetes: Blood Sugar Control Test (HGBA1C) 05/03/2024 HIV Screening 05/03/2024 Hepatitis C Screening 05/03/2024 Social Influencers of Health Screening 05/03/2024 Influenza Vaccine (#1) 2024 , 11/22/2022, 10/11/2021, Additional history exists DTaP,Tdap,and Td Vaccines (4 - Td or Tdap) 05/16/2034 05/16/2024, 03/08/2012, 06/24/2006 Zoster Vaccines Completed 11/11/2021, 04/23/2021 Hepatitis B Vaccines Completed 10/14/2022, 09/15/2022, 05/24/2007, Additional history exists Pneumococcal Vaccine: 50+ Years Completed 10/14/2022 COVID-19 Vaccine Completed 03/15/2024, , 08/22/2021, Additional history exists HIB Vaccines Aged Out No longer eligi [...] to complete this topic RSV Immunization Patients Under 20 months Aged Out No longer eligible based on patient's age to complete this topic Varicella Vaccines Aged Out No longer eligible based on patient's age to [place] [address] Care Teams Venetian Blind Assembler Relationship Specialty Start Date End Date Ariana De Anda MD [address] [place] [address] PCP - General Internal Medicine 05/03/24
== END 2024-09-05 11:06 | disposition home or self-care (01) ==
LOC: HO.HSMS 10:21
PROVIDERS: PCP Internal Medicine; Visit Provider Nurse Practitioner Family
DX: M79.671 Pain in right foot (principal); M79.672 Pain in left foot; R20.2 Paresthesia of skin; R55 Syncope and collapse; G57.30 Lesion of lateral popliteal nerve, unspecified lower limb
CPT/HCPCS: 99214

== ENCOUNTER → 2024-09-05 10:20 | Outpatient (BNVA) | payer OTHER, SELFPAY | PROVIDERS: PCP Internal Medicine; Visit Provider Nurse Practitioner Family | DX: M79.671 Pain in right foot (principal); M79.672 Pain in left foot; R20.2 Paresthesia of skin; R55 Syncope and collapse; G57.30 Lesion of lateral popliteal nerve, unspecified lower limb | CPT/HCPCS: 99212 ==

== ENCOUNTER 2024-10-05 07:48 | Outpatient (AMB) | payer OTHER, SELFPAY ==
--- OUTSIDE RECORDS SUMMARY | 2024-10-05 07:51 | XMS_ITS | Clinical Summary ---
Author Organization 175 [facility] Address [address] [place] [address] Phone Care Team Providers Care Top Former Name Role Phone Ariana De Anda MD Primary Care Provider [phone] Encounters Date Type Department Care Team Description 07/20/2024 9:45 AM EDT Consult Orthopedic [facility] [address] [phone] Carmelo Carmona DPM Diabetic mononeuropathy simplex (CMS/HCC [...] Upcoming Encounters Date Type Department Care Team ([facility] st Contact Info) Description 07/19/2025 9:30 AM EDT Office Visit Orthopedic [facility] [address] [phone] Carmelo Carmona DPM [address] [place] [phone] Health Maintenance Due Date Last Done Comments [...] patient's age to complete this topic Insurance PLAN Care Teams Top Former Relationship Specialty Start Date End Date Ariana De Anda MD [address] [place] [address] PCP - General Internal Medicine 05/03/24
[2024-10-05 07:54] VITALS: BP 122/76; PULSE 77; O2SAT 98; BMI 28.7
--- NOTE | 2024-10-05 07:54 | MHC.PC.OV ---
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 Required: No Accompanied by: Self / Same As Patient Allergies Seasonal Allergies Allergy (Mild, Verified 10/05/24 08:05) runny nose/itchy eyes Medication List - Last Reconciled 10/05/24 by Ariana De Anda MD atorvastatin 40 mg PO BEDTIME 90 days blood sugar diagnostic (FreeStyle Lite Strips) Use 1 test strip once a day blood-glucose meter (FreeStyle Lite Meter kit) As directed celecoxib (Celebrex) 200 mg PO DAILY cetirizine 10 mg PO DAILY cholecalciferol (vitamin D3) 25 mcg PO DAILY 90 days clobetasol 0.05% topical BID PRN cromolyn 4% 1 drp ophthalmic (eye) QID cyanocobalamin (vitamin B-12) 500 mcg PO DAILY 30 days epinephrine 0.3 mg IM DIRECTED fluticasone propionate 50 mcg/actuation 1 spray intranasal DAILY gabapentin 100 - 300 mg (1 - 3 x 100 mg) PO BEDTIME 90 days ketotifen fumarate 0.025%(0.035%) drps ophthalmic (eye) lancets (FreeStyle Lancets) Use 1 lancet once a day lisinopril 5 mg PO DAILY 90 days metformin 500 mg PO BID 90 days omeprazole 20 mg PO DAILY 90 days triamcinolone acetonide 0.1% 1 appl topical BID Tobacco use date assessed: 10/05/24 Dental Screening Dental Screen Date: 10/05/24 Did you have a dental visit in the last 12 months?: Yes Did you have a dental problem in the last 6 months where you did not have access to dental care?: No Was dental information given to patient?: Patient has dentist HPI HPI Comments History of Present Illness Details The patient is a 54-year-old female presenting with follow-up for her chronic conditions including diabetes and hyperlipidemia. Her diabetes is well-controlled with an A1c of 5.28%, indicating excellent management. She is currently on Metformin 500 mg twice daily. The patient's hyperlipidemia is managed with atorvastatin 40 mg, maintaining her LDL at 71 mg/dL, which is close to the target of 70 mg/dL. She had her cholesterol checked earlier this year, which was well-controlled. She reports neuropathy, with symptoms of cold and burning sensations in her toes, which are attributed to her condition. The street cleaner confirmed the diagnosis and noted that her feet are otherwise fine. The patient also has a history of allergic rhinitis, for which she uses cetirizine as needed. She has been diagnosed with vitamin B12 deficiency, which is being monitored due to its association with her neuropathy and sleepiness. Additionally, she experiences gastroesophageal reflux disease, for which she uses omeprazole daily, although she was advised it is not necessary to take it every day. [facility] Medical History Fibroid Diabetes History of gestational diabetes Pancreatitis Colon cancer screening Physical exam Peroneal neuropathy Dyslipidemia Impaired glucose tolerance Hypovitaminosis D Seasonal allergies Uterine fibroid HTN (hypertension) Surgical History History of cholecystectomy History of myomectomy Hx of tubal ligation Hx of section Family History Mother HTN (hypertension) Asthma Arthritis Paternal Aunt HTN (hypertension) Diabetes mellitus Breast cancer Maternal Grandfather Diabetes mellitus Prostate cancer Stomach cancer Paternal Grandfather Diabetes mellitus HTN (hypertension) Father HTN (hypertension) Substance use disorder Social History Housing: House Alcohol intake: never Patient Tobacco Use Status: Never used Tobacco Tobacco use type: Cigarette e-Cigarette/Vaping Use: Never Used Second Hand Smoke Exposure: No service: No Current occupational status: employed Current occupational exposures/hazards: No Gender identity: Female Cognitive needs: No Hearing needs: No Vision needs: Yes Female Reproductive History Menstrual Age of Menarche: 15 Date of menopause: 01/19/20 Questionnaire PHQ-9 Over the last 2 weeks, how often have you been bothered by any of the following problems? 1. Little interest or pleasure in doing things: not at all 2. Feeling down, depressed, or hopeless: not at all 3. Trouble falling or staying asleep, or sleeping too much: not at all 4. Feeling tired or having little energy: not at all 5. Poor appetite or overeating: not at all 6. Feeling bad about yourself - or that you are a failure or have let yourself or your family down: not at all 7. Trouble concentrating on things, such as reading the newspaper or watching television: not at all 8. Moving or speaking so slowly that other people could have noticed. Or the opposite - being so fidgety or restless that you have been moving around a lot more than usual: not at all 9. Thoughts that you would be better off or of hurting yourself in some way: not at all Total score: 0 Depression Screening Interpretation: Negative Depression Screening Done: Yes 37906 - PHQ-9 Billing: Yes Source: Developed by Drs. Turner Craft, Brandi Herman, Kushal Vergara and colleagues, with an educational sami from [employer]. Thrive Questionnaire Date Thrive assessed: 05/09/24 I am a: Patient What is your living situation today?: I have a steady place to live Within the past 12 months, did the food you bought not last and you didn't have the money to get more?: Never true Within the past 12 months, did you worry whether your food would run out before you got money to buy more?: Never true Do you have trouble paying for medicines?: No Do you have trouble getting transportation to medical appointments?: No Do you have trouble paying your heating and electricity bill?: No Do you have trouble taking care of your child, family member or friend?: No Do you have trouble with day-to-day activities such as bathing, preparing meals, shopping, managing finances, etc.?: No Are you currently unemployed and looking for a job?: No Are you interested in more education?: No Please select the resources that you would like help with: None Currently or been in a relationship where the following occur: No concerns reported THRIVE Score: 0 AUDIT C Alcohol Use Questionnaire (AUDIT-C) 1. How often do you have a drink containing alcohol?: Never 3. How often do you have six or more drinks on one occasion?: Never Total Score: 0 Score Reviewed/Action Taken: No BRANDY-7 AMB Questionnaire BRANDY-7 Date BRANDY - 7 assessed: 02/24/24 Source: Developed by Poli Hermanet B.W. Virgil, Kushal Vergara and colleagues, with an educational sami from [employer]. Review of Systems Const All systems reviewed & are unremarkable except as noted in HPI and below ENT Denies change in voice, Denies nasal discharge and Denies sinus pain Card Denies chest pain at rest, Denies chest pain with activity, Denies edema, Denies irregular heart rhythm, Denies claudication, Denies dyspnea, Denies dyspnea on exertion, Denies orthopnea, Denies paroxysmal nocturnal dyspnea and Denies slow heart rate Resp Denies cough, Denies dyspnea and Denies dyspnea on exertion GI Denies abdominal pain, Denies change in bowel habits, Denies excessive flatus, Denies nausea and Denies vomiting Denies urinary incontinence, Denies urinary hesitancy and Denies urinary urgency Musc Denies abnormal gait, Denies atrophy, Denies deformity and Denies limited range of motion Skin/Breast Denies bleeding lesions, Denies changing lesions and Denies rash Neuro Denies abnormal gait and Denies lack of coordination Physical exam (Primary Care) Vital Signs: Last Vital Signs Pulse 77 10/05/24 07:54 BP 122/76 10/05/24 07:54 Pulse Ox 98 10/05/24 07:54 Oxygen Delivery Method Room Air 10/05/24 07:54 BMI result Body Mass Index 28.7 Tobacco/Smoking Status: Tobacco use Status Tobacco use date assessed 10/05/24 10/05/24 07:55 Patient Tobacco Use Status Never used Tobacco 10/05/24 07:55 Tobacco use type Cigarette 10/05/24 07:55 e-Cigarette/Vaping Use Never Used 10/05/24 07:55 PHQ-9: PHQ-9 Score PHQ-9: Total score 0 10/05/24 07:55 Depression Screening Interpretation: Negative Thrive Assessment: Date of Thrive Assessment Date Thrive assessed 05/09/24 10/05/24 07:55 Currently or been in a relationship where the following occur: No concerns reported Resp Effort & Inspection: normal respiratory effort Auscultation: clear to auscultation bilaterally Cardio Jugular venous distension: no JVD Rate: regular rate Rhythm: regular rhythm Heart sounds: S1 normal heart sound present and S2 normal heart sound present Extrem General: Yes full ROM Results AMB Hemoglobin A1c AMB Hemoglobin A1c 5.8 % Last Edit by Emilee Zaidi CMA on 10/05/24 08:07 Coding Level of Care Code Est Pt Level 4 (92964) Complex EM visit Add On G2211 Diagnoses Type 2 diabetes mellitus without complication, without long-term current use of insulin E11.9 Diabetes mellitus type: type 2 Diabetes mellitus nursing home insulin use: without nursing home use Diabetes mellitus complication status: without complication Essential hypertension I10 Hypertension type: essential hypertension Hyperlipidemia LDL goal <70 E78.5 Peroneal neuropathy, unspecified laterality G57.30 Laterality: unspecified laterality Additional Codes PHQ-9 - 33300 - PHQ-9 Billing: Yes ([id number]) Time Spent (min) 22 Assessment & Plan Assessment & Plan (1) Diabetes mellitus: Code(s): E11.9 - Type 2 diabetes mellitus without complications Category: Medical Qualifiers: Diabetes mellitus type: type 2 Diabetes mellitus nursing home insulin use: without nursing home use Diabetes mellitus complication status: without complication Qualified Code(s): E11.9 - Type 2 diabetes mellitus without complications (2) HTN (hypertension): Code(s): I10 - Essential (primary) hypertension Category: Medical Qualifiers: Hypertension type: essential hypertension Qualified Code(s): I10 - Essential (primary) hypertension (3) Hyperlipidemia LDL goal <70: Code(s): E78.5 - Hyperlipidemia, unspecified Category: Medical (4) Peroneal neuropathy: Code(s): G57.30 - Lesion of lateral popliteal nerve, unspecified lower limb Category: Medical Qualifiers: Laterality: unspecified laterality Qualified Code(s): G57.30 - Lesion of lateral popliteal nerve, unspecified lower limb Plan Plan Patient was informed and verbally consented to the use of an ambient scribe for clinic note documentation during this visit. 1. Type 2 diabetes mellitus without complications E11.9 HCC 19 The patient's diabetes is well-controlled with an A1c of 5.28%. She is currently on Metformin 500 mg twice daily, which is effectively managing her condition. 2. Hyperlipidemia, unspecified E78.5 The patient's hyperlipidemia is managed with atorvastatin 40 mg, maintaining her LDL at 71 mg/dL. This is close to the target of 70 mg/dL, indicating effective control. 3. Polyneuropathy, unspecified G62.9 The patient reports neuropathy with cold and burning sensations in her toes. The street cleaner confirmed the diagnosis, and her feet are otherwise fine. 4. Allergic rhinitis, unspecified J30.9 The patient uses cetirizine as needed for allergic rhinitis. 5. Other vitamin B12 deficiency anemias D51.8 The patient has been diagnosed with vitamin B12 deficiency, which is being monitored due to its association with neuropathy and sleepiness. 6. Gastro-esophageal reflux disease without esophagitis K21.9 The patient uses omeprazole daily for gastroesophageal reflux disease, although it was advised that daily use is not necessary. Orders: Orders AMB Hemoglobin A1c Today Z13.9 - Encounter for screening, unspecified
== END 2024-10-05 08:20 | disposition home or self-care (01) ==
LOC: HO.HMCH 07:49
PROVIDERS: PCP Internal Medicine; Visit Provider Internal Medicine
DX: E11.9 Type 2 diabetes mellitus without complications (principal); I10 Essential (primary) hypertension; E78.5 Hyperlipidemia, unspecified; G57.30 Lesion of lateral popliteal nerve, unspecified lower limb; Z13.9 Encounter for screening, unspecified

== ENCOUNTER → 2024-10-05 07:48 | Outpatient (BNVA) | payer OTHER, SELFPAY | PROVIDERS: PCP Internal Medicine; Visit Provider Internal Medicine | DX: K21.9 Gastro-esophageal reflux disease without esophagitis (principal); E11.40 Type 2 diabetes mellitus with diabetic neuropathy, unspecified; E78.5 Hyperlipidemia, unspecified; J30.9 Allergic rhinitis, unspecified; E53.8 Deficiency of other specified B group vitamins; I10 Essential (primary) hypertension; G57.30 Lesion of lateral popliteal nerve, unspecified lower limb | CPT/HCPCS: 83036; 96127; 99212 ==

== ENCOUNTER 2025-01-19 07:49 | Outpatient (AMB) | payer OTHER, SELFPAY ==
[2025-01-19 07:54] VITALS: BP 122/72; PULSE 85; O2SAT 98; BMI 27.6
--- NOTE | 2025-01-19 07:54 | A.OFFPC_ITS ---
Vital Signs 01/19/25 07:54 Height 5 ft 2 in Weight 151 lb BMI 27.6 BP 122/72 Blood Pressure Location Lt brachial Position Sitting Pulse 85 Pulse Source Pulse Oximeter Pulse Oximetry (%) 98 Oxygen Delivery Method Room Air Intake Visit Reasons: 4 month follow up State Manager Required: No Accompanied by: Self / Same As Patient Allergies Seasonal Allergies Allergy (Mild, Verified 01/19/25 08:06) runny nose/itchy eyes Medication List - Last Reconciled 01/19/25 by Ariana De Anda MD atorvastatin 40 mg PO BEDTIME 90 days blood sugar diagnostic (FreeStyle Lite Strips) Use 1 test strip once a day blood-glucose meter (FreeStyle Lite Meter kit) As directed celecoxib (Celebrex) 200 mg PO DAILY cetirizine 10 mg PO DAILY cholecalciferol (vitamin D3) 25 mcg PO DAILY 90 days clobetasol 0.05% topical BID PRN cromolyn 4% 1 drp ophthalmic (eye) QID cyanocobalamin (vitamin B-12) 500 mcg PO DAILY 30 days epinephrine 0.3 mg IM DIRECTED fluticasone propionate 50 mcg/actuation 1 spray intranasal DAILY gabapentin 100 - 300 mg (1 - 3 x 100 mg) PO BEDTIME 90 days ketotifen fumarate 0.025%(0.035%) drps ophthalmic (eye) lancets (FreeStyle Lancets) Use 1 lancet once a day lisinopril 5 mg PO DAILY 90 days metformin 500 mg PO BID 90 days omeprazole 20 mg PO DAILY 90 days triamcinolone acetonide 0.1% 1 appl topical BID Tobacco use date assessed: 10/05/24 Dental Screening Dental Screen Date: 10/05/24 HPI HPI Comments History of Present Illness Details The patient is a 54 year old female presenting with a persistent, dry cough. She reports the cough starts with a prickling sensation in the throat and is worse at night, causing sleep disruption. She experiences coughing fits that leave her feeling breathless. Associated symptoms include nasal congestion, an itchy nose, and mild body aches. She denies fever or sore throat beyond the ini tial prickling sensation. The patient's chronic conditions are reportedly stable, with a recent A1c of 5.7 and blood pressure less than 130/80 mmHg. Her current medications include atorvastatin 40 mg, celecoxib as needed, cetirizine, vitamin D, a cream for eczema, vitamin B12, gabapentin, lisinopril, metformin 500 mg twice daily, and omeprazole for acid reflux. She has a history of seasonal allergies and has an EpiPen. [facility] Medical History (Updated 01/19/25 @ 09:35 by Ariana De Anda MD) Fibroid Diabetes History of gestational diabetes Pancreatitis Colon cancer screening Physical exam Peroneal neuropathy Dyslipidemia Impaired glucose tolerance Hypovitaminosis D Seasonal allergies Uterine fibroid HTN (hypertension) Surgical History History of cholecystectomy History of myomectomy Hx of tubal ligation Hx of section Family History Mother HTN (hypertension) Asthma Arthritis Paternal Aunt HTN (hypertension) Diabetes mellitus Breast cancer Maternal Grandfather Diabetes mellitus Prostate cancer Stomach cancer Paternal Grandfather Diabetes mellitus HTN (hypertension) Father HTN (hypertension) Substance use disorder Social History Housing: House Alcohol intake: never Patient Tobacco Use Status: Never used Tobacco Tobacco use type: Cigarette e-Cigarette/Vaping Use: Never Used Second Hand Smoke Exposure: No service: No Current occupational status: employed Current occupational exposures/hazards: No Gender identity: Female Cognitive needs: No Hearing needs: No Vision needs: Yes Female Reproductive History Menstrual Age of Menarche: 15 Date of menopause: 01/19/20 Questionnaire Thrive Questionnaire Date Thrive assessed: 05/09/24 I am a: Patient What is your living situation today?: I have a steady place to live Within the past 12 months, did the food you bought not last and you didn't have the money to get more?: Never true Within the past 12 months, did you worry whether your food would run out before you got money to buy more?: Never true Do you have trouble paying for medicines?: No Do you have trouble getting transportation to medical appointments?: No Do you have trouble paying your heating and electricity bill?: No Do you have trouble taking care of your child, family member or friend?: No Do you have trouble with day-to-day activities such as bathing, preparing meals, shopping, managing finances, etc.?: No Are you currently unemployed and looking for a job?: No Are you interested in more education?: No Please select the resources that you would like help with: None Currently or been in a relationship where the following occur: No concerns reported THRIVE Score: 0 BRANDY-7 AMB Questionnaire BRANDY-7 Date BRANDY - 7 assessed: 02/24/24 Source: Developed by Drs. Turner Craft, Brandi Herman, Kushal Vergara and colleagues, with an educational sami from [employer]. Review of Systems Const All systems reviewed & are unremarkable except as noted in HPI and below Card Denies chest pain at rest, Denies chest pain with activity, Denies edema, Denies irregular heart rhythm, Denies claudication, Denies dyspnea, Denies dyspnea on exertion, Denies orthopnea, Denies paroxysmal nocturnal dyspnea and Denies slow heart rate Resp Denies cough, Denies dyspnea and Denies dyspnea on exertion GI Denies abdominal pain, Denies change in bowel habits, Denies excessive flatus, Denies nausea and Denies vomiting Physical exam (Primary Care) Vital Signs: Last Vital Signs Pulse 85 01/19/25 07:54 BP 122/72 01/19/25 07:54 Pulse Ox 98 01/19/25 07:54 Oxygen Delivery Method Room Air 01/19/25 07:54 BMI result Body Mass Index 27.6 Tobacco/Smoking Status: Tobacco use Status Tobacco use date assessed 10/05/24 01/19/25 07:55 Patient Tobacco Use Status Never used Tobacco 01/19/25 07:55 Tobacco use type Cigarette 01/19/25 07:55 e-Cigarette/Vaping Use Never Used 01/19/25 07:55 Thrive Assessment: Date of Thrive Assessment Date Thrive assessed 05/09/24 01/19/25 07:55 Currently or been in a relationship where the following occur: No concerns reported Resp Effort & Inspection: normal respiratory effort Auscultation: clear to auscultation bilaterally Cardio Jugular venous distension: no JVD Rate: regular rate Rhythm: regular rhythm Heart sounds: S1 normal heart sound present and S2 normal heart sound present Extrem General: Yes full ROM Results AMB Hemoglobin A1c AMB Hemoglobin A1c 5.7 % Last Edit by Emilee Zaidi CMA on 01/19/25 08 :07 Coding Level of Care Code Add On Preventative Visit Only Diagnoses URI (upper respiratory infection) J06.9 Type 2 diabetes mellitus without complication, without long-term current use of insulin E11.9 Diabetes mellitus type: type 2 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: without skilled nursing use Diabetes mellitus complication status: without complication Essential hypertension I10 Hypertension type: essential hypertension Hyperlipidemia LDL goal <70 E78.5 Time Spent (min) 22 Assessment & Plan Assessment & Plan (1) URI (upper respiratory infection): Code(s): J06.9 - Acute upper respiratory infection, unspecified Category: Medical (2) Diabetes mellitus: Code(s): E11.9 - Type 2 diabetes mellitus without complications Category: Medical Qualifiers: Diabetes mellitus type: type 2 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 Acute Cough/URI The patient reports a persistent, dry cough that is worse at night, associated with nasal congestion and mild body aches. She has been around others who are sick. To investigate the etiology, testing for COVID, influenza, and sexually transmitted diseases will be performed today. An antibiotic will be prescribed, which may be effective if testing is negative for viral causes. 2. Diabetes mellitus type 2 A1c goal is equal or less than 7%. Continue metformin. 3. Essential hypertension Continue lisinopril. Blood pressure goal is equal or less than 130/80. 4. Hyperlipidemia Continue statins. LDL goal is less than 70. Orders: Orders AMB Hemoglobin A1c Today Z13.9 - Encounter for screening, unspecified Comprehensive Ten Sleep. Panel Fast 4 Months E11.9 - Type 2 diabetes mellitus without complications SARS-CoV2/FLU/RSV Today R09.89 - Other specified symptoms and signs involving the circulatory and respiratory systems Lipid Panel 4 Months E78.5 - Hyperlipidemia, unspecified Microalbumin, Random (w Creat) 4 Months R80.9 - Proteinuria, unspecified Vitamin D 25-OH Total 4 Months E55.9 - Vitamin D deficiency, unspecified Medications: New azithromycin tale 2 tabs the first day, then 1 tab for the 4 days 250 mg PO DAILY 6 tabs 0RF 5 days
--- OUTSIDE RECORDS SUMMARY | 2025-01-19 08:04 | XMS_ITS | Clinical Summary ---
Author Organization [address] [facility] Address [address] [place] [address] Phone Care Team Providers Care Biological Technician Name Role Phone Ariana De Anda MD Primary Care Provider [phone] Social History Tobacco Use Types Packs/Day Years Used Date Smoking Tobacco: Never Assessed Comments Unknown Sex and Gender Information Value Date Recorded Sex Assigned at Not on file Legal Sex Female 7:22 AM EDT Gender Identity Not on file Sexual Orientation Not on file Plan of Treatment Upcoming Encounters Date Type Department Care Team ([facility] Contact Info) Description 07/19/2025 9:30 AM EDT Office Visit Orthopedic Surgery [place] [id number] [address] [phone] Carmelo Carmona, DPM [address] [phone] Health Maintenance Due Date Last Done Comments Breast Cancer Screening 1971 Colorectal Cancer Screening: Colonoscopy 1971 Cervical Cancer Screening: Pap Smear 1992 RSV Immunization Adult Patients (1 - Risk 50-74 years 1-dose series) 2021 Depression Screening 02/10/2024 HIV Screening 05/03/2024 Hepatitis C Screening 05/03/2024 Social Influencers of Health Screening 05/03/2024 COVID-19 Vaccine ( season) 2024 03/15/2024, 11/22/2022, 08/22/2021, Additional history exists Influenza Vaccine (#1) 2024 , 11/22/2022, 10/11/2021, Additional history exists DTaP,Tdap,and Td Vaccines (4 - Td or Tdap) 05/16/2034 05/16/2024, 03/08/2012, 06/24/2006 Zoster Vaccines Completed 11/11/2021, 04/23/2021 Hepatitis B Vaccines Completed 10/14/2022, 09/15/2022, 05/24/2007, Additional history exists Pneumococcal Vaccine: 50+ Years Completed 10/14/2022 HIB Vaccines Aged Out No longer eligi [...] patient's age to complete this topic [place] [address] [place] [address] PLAN Care Teams Biological Technician Relationship Specialty Start Date End Date Ariana De Anda MD [address] [place] [address] PCP - General Internal Medicine 05/03/24
== END 2025-01-19 08:20 | disposition home or self-care (01) ==
LOC: HO.HMCH 07:49
PROVIDERS: PCP Internal Medicine; Visit Provider Internal Medicine
DX: J06.9 Acute upper respiratory infection, unspecified (principal); E11.9 Type 2 diabetes mellitus without complications; I10 Essential (primary) hypertension; E78.5 Hyperlipidemia, unspecified; Z13.9 Encounter for screening, unspecified

== ENCOUNTER 2025-01-19 07:49 | Outpatient (REF) | payer OTHER, SELFPAY ==
[2025-01-19 09:10] LABS: Resp Syncy Virus RNA Qual PCR NEGATIVE (Negative); SARS COV2 PCR INHOUSE NEGATIVE (Negative)
== END 2025-01-19 07:50 | disposition home or self-care (01) ==
LOC: HO.LAB 07:49
PROVIDERS: PCP Internal Medicine; Visit Provider Internal Medicine
DX: R09.89 Other specified symptoms and signs involving the circulatory and respiratory systems (principal); J06.9 Acute upper respiratory infection, unspecified; E11.9 Type 2 diabetes mellitus without complications; I10 Essential (primary) hypertension; E78.5 Hyperlipidemia, unspecified
CPT/HCPCS: 83036; 87637; 99212